=== PATIENT | male | born 1940 | race Caucasian/White ===

== ENCOUNTER 2016-04-11 19:06 | Emergency (ER) | payer MEDICARE, OTHER | END 2016-04-11 19:28 | disposition left against medical advice (07) | LOC: E/R 19:06 | DX: Z53.21 Procedure and treatment not carried out due to patient leaving prior to being seen by health care provider (principal) ==

== ENCOUNTER 2016-04-12 18:00 | Inpatient (IN) | payer MEDICARE, OTHER ==
[~2016-04-12] VITALS: Ht 162.6 cm; Wt 60.1 kg
[2016-04-12] MEDS ORDERED: METHYLPREDNISOLONE 125 MG INJ IV STA (20:19)
[2016-04-12] MEDS ORDERED: ALBUTEROL 0.5% (NEB) 2.5 MG/0.5 ML AMP INH STA (20:19)
[2016-04-12] MEDS ORDERED: SOD CHLORIDE 0.9% 500 ML IV STA (20:19)
[2016-04-12] MEDS ORDERED: IPRATROPIUM (NEB) 0.5 MG/2.5 ML AMP INH STA (20:19)
[2016-04-12 20:59] LABS: BASOPHIL # 0.1 10^3/ul (0.0-0.1); BASOPHILS % 0.6 % (0.0-2.0); EOSINOPHILS # 0.2 10^3/ul (0.0-0.5); EOSINOPHILS % 2.8 % (0.0-7.0); HEMOGLOBIN 12.3 g/dl (14.0-18.0); LYMPHOCYTES # 1.8 10^3/ul (0.8-2.9); LYMPHOCYTES % 21.2 % (15.0-51.0); MEAN CORPUSCULAR HEMOGLOBIN 28.5 pg (29.0-33.0); MEAN CORPUSCULAR HGB CONC 33.2 g/dl (32.0-37.0); MEAN CORPUSCULAR VOLUME 85.8 fl (82.0-101.0); MEAN PLATELET VOLUME 7.6 fl (7.4-10.4); MONOCYTE # 0.9 10^3/ul (0.3-0.9); MONOCYTES % 10.5 % (0.0-11.0); NEUTROPHIL # 5.6 10^3/ul (1.6-7.5); NEUTROPHILS % 64.9 % (39.0-77.0); PLATELET COUNT 285 10^3/UL (140-440); RED BLOOD COUNT 4.32 10^6/ul (4.70-6.10); RED CELL DISTRIBUTION WIDTH 14.9 % (11.5-14.5); UNCORRECTED WBC 8.6 10^3/ul (4.8-10.8); WHITE BLOOD COUNT 8.6 10^3/ul (4.8-10.8)
[2016-04-12 21:01] LABS: CONDITION 1; LH ANALYZER COMMENTS 1
[2016-04-12 21:08] LABS: ALBUMIN 3.8 g/dl (3.3-4.9); CHLORIDE 101 mmol/L (97-110); SODIUM 142 mmol/L (135-144)
[2016-04-12 21:10] LABS: ANION GAP 15 (8-16); CARBON DIOXIDE 30 mmol/L (21-31); CREATININE 0.85 mg/dl (0.61-1.24)
[2016-04-12 21:11] LABS: ALANINE AMINOTRANSFERASE 25 IU/L (13-69); ALBUMIN/GLOBULIN RATIO 1.22; ALKALINE PHOSPHATASE 87 IU/L (42-121); ASPARTATE AMINO TRANSFERASE 27 IU/L (15-46); BLOOD UREA NITROGEN 12 mg/dl (7-20); GLUCOSE 99 mg/dl (70-220); TOTAL PROTEIN 6.9 g/dl (6.1-8.1)
--- NOTE | 2016-04-12 21:18 | RADRPT ---
PROCEDURE: XR Chest. CLINICAL INDICATION: Abdominal pain. TECHNIQUE: Single frontal view of the chest was obtained COMPARISON: 07/01/2015. FINDINGS: The heart and mediastinum are within normal limits. Atherosclerotic calcifications in the thoracic aorta. Mild pulmonary vascular congestion. There is no pleural effusion or pneumothorax. IMPRESSION: 1. Atherosclerotic calcifications in the thoracic aorta. 2. Mild pulmonary vascular congestion. RPTAT: [facility] Physician Robert Date Time Electronically viewed and signed by Jay Hylton Physician on 04/12/2016 21:17 RS/
[2016-04-12 21:27] LABS: TROPONIN-I < 0.012 ng/ml (0.00-0.12)
[2016-04-12 21:46] LABS: ADD UMIC YES; URINE BILIRUBIN (Dip) NEGATIVE (NEGATIVE); URINE BLOOD (Dip) 2+ (NEGATIVE); URINE COLOR LT. YELLOW (YELLOW); URINE GLUCOSE (Dip) NEGATIVE (NEGATIVE); URINE KETONES (Dip) NEGATIVE (NEGATIVE); URINE LEUKOCYTE ESTERASE (Dip) NEGATIVE (NEGATIVE); URINE NITRITE (Dip) NEGATIVE (NEGATIVE); URINE TOTAL PROTEIN (Dip) NEGATIVE (NEGATIVE); URINE UROBILINOGEN (Dip) 0.2 E.U./dL (0.1-1.0)
[2016-04-12 22:09] LABS: BACTERIA,URINE RARE; SQUAMOUS EPITHELIAL CELL,UR FEW
--- NOTE | 2016-04-12 23:26 | ERA ---
ER Documentation Chief Complaint Date/Time DATE: 04/12/16 TIME: 23:17 Chief Complaint increased sob since monday. sent by dr terrazas for admit , mild distress. HPI 75-year-old man brought in by EMS from [facility] for continued shortness of breath and wheezing despite albuterol pump at home. also suspects urinary tract infection because he has been acting confused and recently very agitated with bizarre behavior and speech. He does have a history of schizophrenia and antipsychotic medical management has recently been difficult. He was seen and evaluated by the psychiatric team at [facility] [place] and recommendation was for outpatient management because he was not acutely suicidal or homicidal. Patient has had no calf or leg swelling, no complaints of chest pain, no vomiting or diarrhea. HPI was supplemented by reviewing past medical history, reviewing halfway records, later speaking to PMD, and family members. ROS All systems reviewed and are negative except as per history of present illness. Medications Home Meds Unable to Obtain Active Prescriptions or Reported Meds Allergies Allergies: Coded Allergies: haloperidol (Verified Allergy, Unknown, 04/12/16) PMhx/Soc Dementia, schizophrenia, COPD, hypertension, Parkinson's disease, hypothyroidism History of Surgery: No Hx Neurological Disorder: No Hx Respiratory Disorders: Yes (COPD, PNA) Hx Cardiac Disorders: Yes Hx Miscellaneous Medical Probl: Yes (COPD, Parkinson's Disease) Hx Alcohol Use: No Hx Substance Use: No Hx Tobacco Use: Yes FmHx Family History: No diabetes Physical Exam Vitals Vital Signs Date Time Temp Pulse Resp B/P Pulse Ox O2 Delivery O2 Flow Rate FiO2 04/12/16 22:59 93 22 101/69 96 Room Air 04/12/16 22:24 94 26 101/69 96 Room Air 04/12/16 20:27 92 20 96 21 04/12/16 18:04 99.2 102 24 128/88 93 Physical Exam GENERAL: Well-developed, well-nourished, well-hydrated, in no apparent distress , agitated, afebrile HEENT: Moist mucous membranes, pink conjunctiva, no cervical spine tenderness or step-off deformities, no goiter, no jaundice or icterus, extraocular movements intact without pain. No submandibular induration, and no pharyngeal erythema NEURO: Alert and oriented 3, cranial nerves II through XII intact bilaterally, pupils equal round reactive to light, no focal deficits or facial asymmetry, sensation intact distally Strength 5/5 in upper and lower extremities bilaterally CARDIAC: Regular rate and rhythm, no murmurs rubs or gallops LUNGS: Diffuse wheezes bilaterally, no crackles or stridor ABDOMEN: Soft nontender, no guarding, no rigidity, no rebound, no psoas sign no obturator sign. Normoactive bowel sounds SKIN: Warm and dry to touch, no abrasions, contusions, or hematomas, no lacerations, no ecchymosis, no target lesions, and without ulcers EXTREMITIES: No clubbing cyanosis or edema, calves are bilaterally symmetrical, no Homans sign, no popliteal cord sign. Distal pulses equal and bilateral PSYCH: Agitated with bizarre behavior Result Diagram: 04/12/16204404/12/162044 Results 24 hrs Laboratory Tests Test 04/12/16 20:45 04/12/16 21:30 Alanine Aminotransferase (ALT/SGPT) 25IU/L Albumin 3.8g/dl Albumin/Globulin Ratio 1.22 Alkaline Phosphatase 87IU/L Anion Gap 15 Aspartate Amino Transf (AST/SGOT) 27IU/L B-Type Natriuretic Peptide 370PG/ML Basophils # 0.110^3/ul Basophils % 0.6% Blood Morphology Comment Blood Urea Nitrogen 12mg/dl Calcium Level 9.0mg/dl Carbon Dioxide Level 30mmol/L Chloride Level 101mmol/L Creatinine 0.85mg/dl Direct Bilirubin 0.00mg/dl Eosinophils # 0.210^3/ul Eosinophils % 2.8% Globulin 3.10g/dl Glucose Level 99mg/dl Hematocrit 37.0% Hemoglobin 12.3g/dl Indirect Bilirubin 0.0mg/dl Lipase 154U/L Lymphocytes # 1.810^3/ul Lymphocytes % 21.2% Mean Corpuscular Hemoglobin 28.5pg Mean Corpuscular Hemoglobin Concent 33.2g/dl Mean Corpuscular Volume 85.8fl Mean Platelet Volume 7.6fl Monocytes # 0.910^3/ul Monocytes % 10.5% Neutrophils # 5.610^3/ul Neutrophils % 64.9% Nucleated Red Blood Cells # 0.010^3/ul Nucleated Red Blood Cells % 0.0/100WBC Platelet Count 02557^3/UL Potassium Level 4.0mmol/L Red Blood Count 4.3210^6/ul Red Cell Distribution Width 14.9% Sodium Level 142mmol/L Total Bilirubin 0.0mg/dl Total Protein 6.9g/dl Troponin I < 0.012ng/ml White Blood Count 8.610^3/ul Urine Bacteria RARE Urine Bilirubin NEGATIVE Urine Clarity CLEAR Urine Color LT. YELLOW Urine Glucose NEGATIVE% Urine Hemoglobin 2+ Urine Ketones NEGATIVE Urine Leukocyte Esterase NEGATIVE Urine Microscopic RBC 10-25/HPF Urine Microscopic WBC NONE SEEN/HPF Urine Nitrite NEGATIVE Urine Specific [place] <=1.005 Urine Squamous Epithelial Cells FEW Urine Total Protein NEGATIVE Urine Urobilinogen 0.2 E.U./dL Urine pH 5.5 Current Medications Medications (Trade) Dose Ordered Sig/Julio Route PRN Reason Start Time Stop Time Status Last Admin Dose Admin Sodium Chloride (NS) 500 ml @ 500 mls/hr Q1H STAT IV 04/12/16 20:19 04/12/16 21:18 DC 04/12/16 21:31 Albuterol (Proventil 0.5% (Neb)) 10 mg ONCE STAT INH 04/12/16 20:19 04/12/16 20:20 DC 04/12/16 20:27 Ipratropium [place] (Atrovent 0.02% (Neb)) 1 mg ONCE STAT INH 04/12/16 20:19 04/12/16 20:20 DC 04/12/16 20:26 Methylprednisolone Sodium Succinate (Solu-Medrol) 125 mg ONCE STAT IV 04/12/16 20:19 04/12/16 20:20 DC 04/12/16 21:31 Lorazepam (Ativan) 0.5 mg ONCE ONCE IV 04/12/16 23:30 04/12/16 23:31 [facility] IV line was established patient was placed on 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 Patient was afebrile. I administered albuterol 10 mg via nebulizer, ipratropium 1 mg via nebulizer, and methylprednisolone 125 mg IV. Patient also received 500 cc of normal saline intravenously and lorazepam 0.5 mg IV for agitation. One AP view of the chest performed, read by me reveals no acute infiltrates, normal mediastinum, sharp costophrenic and cardiac borders, no air under the diaphragm. Otherwise unremarkable chest x-ray. EKG performed, read by me: 88 bpm, normal sinus rhythm, normal axis, no acute ST segment changes, narrow QRS complex, with good R-wave progression in precordial leads. CBC was unremarkable, electrolytes normal, liver function tests were normal, troponin was negative, BNP was low. Urine analysis was negative for infection. Given the patient's continued symptoms and recent psychotic behavior he will be admitted to [facility] for continued medical management, bronchodilator therapy, and inpatient psychiatry consultation. 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
[2016-04-12] MEDS ORDERED: LORAZEPAM 2 MG INJ IV ONE (23:30)
[2016-04-13] MEDS ORDERED: LORAZEPAM 2 MG INJ IV PRN (01:30)
[2016-04-13] MEDS ORDERED: ACETAMINOPHEN 325 MG TAB PO PRN (01:30)
[2016-04-13] MEDS: ALBUTEROL/IPRATROPIUM (NEB) 3 ML AMP HHN SCH ×4 (02:19→19:33)
[2016-04-13] MEDS: CEFTRIAXONE 1 GM/50 ML (PMX) 50 ML IVPB SCH (02:32)
[2016-04-13 03:00] VITALS: Ht 162.6 cm; Wt 60.1 kg
[2016-04-13] MEDS ORDERED: PANTOPRAZOLE (EC) 40 MG TAB PO SCH (06:00)
[2016-04-13 08:21] VITALS: BP 136/83; RESP 20
[2016-04-13] MEDS: METHYLPREDNISOLONE 40 MG INJ IV SCH ×2 (08:38→20:34)
--- NOTE | 2016-04-13 12:26 | HP ---
DATE OF ADMISSION: 04/12/2016 CHIEF COMPLAINT: Increased shortness of breath since Monday, respiratory distress. HISTORY OF PRESENT ILLNESS: The patient is a 75-year-old gentleman who was sent from a skilled nurs ing facility for continued shortness of breath and wheezing despite using aerosol pump at the [facility]. The patient has a history of COPD, schizophrenia, Parkinson's disease, and insomnia. The patie nt, also according to the senior living records, has increased confusion and agitation with bizarre b ehavior. The patient was given albuterol and Atrovent, IV steroids and Ativan with improvement. Th e patient also underwent a chest x-ray, with notion of mild pulmonary vascular congestion and athero sclerotic calcification in the thoracic aorta. The patient is a poor historian. According to , the patient has a temperature of 99.2 on admission. Denies any nausea, vomiting. Denies chest pa in. Denies diarrhea, constipation. The patient will be admitted for further evaluation and managem ent to medical/surgical floor. PAST MEDICAL HISTORY: Positive for Parkinson disease, COPD, schizoaffective disorder, hypothyroidis m. PAST SURGICAL HISTORY: The patient is status post thoracentesis for severe pneumonia. SOCIAL HISTORY: The [facility]. The patient is a former heavy smoker. Currently, denies any alcohol use, denies any illicit drug use. FAMILY HISTORY: Noncontributory. ALLERGIES: THE PATIENT IS ALLERGIC TO HALDOL. MEDICATIONS: On admission, the list of penitentiary facility medications is unavailable. I will contact the penitentiary facility for the current medication list. REVIEW OF SYSTEMS: A 12-point review of systems is negative unless what mentioned in the HPI. PHYSICAL ASSESSMENT: GENERAL: Well-developed, well-nourished male, currently is awake, alert. VITAL SIGNS: Temperature is 98.8, pulse is 88, blood pressure is 136/82, respiratory rate 20, oxyge n saturation is 96% on 2 liters nasal cannula. HEENT: Head is atraumatic, normocephalic. Pupils equal, round, reactive to light and accommodation . Oral mucosa is pink, moist. NECK: Supple, no cervical lymphadenopathy, no thyromegaly. CHEST: Lungs are clear bilaterally, slightly diminished at the bases. There are no wheezes or rhon chi noted. CARDIOVASCULAR: Normal S1, S2. No murmurs, gallops, clicks, rubs noted. ABDOMEN: Round, soft, nondistended, nontender. Bowel sounds present. There is no guarding, no jarret ound tenderness. EXTREMITIES: There is no edema, clubbing, cyanosis. Pulses equal bilaterally 2+. SKIN: There is no rash, petechiae noted. NEUROLOGIC: The patient is awake, alert and oriented to name and situation. Otherwise, confused, c ooperative. ASSESSMENT AND PLAN 1. Chronic obstructive pulmonary disease exacerbation. We are going to continue patient on breathi ng treatments and IV Solu-Medrol. 2. Possible pneumonia with chest x-ray with pulmonary congestion, and a low-grade fever. Start pat ient on Rocephin and monitor chest x-ray. 3. Parkinson's disease. 4. Schizophrenia. 5. Hypertension. We will continue hydralazine p.r.n. for systolic blood pressure above 170. 6. History of methicillin-resistant Staphylococcus aureus of nares, status post treatment. We will check nares swab for MRSA infection. 7. Weill continue sequential compression device for deep venous thrombosis prophylaxis and Protonix for peptic ulcer disease prophylaxis. Further recommendations based on clinical course. Plan of care discussed with Dr. Lorenzo. Dictated By: SORAIDA KING SUCTION ROLLER for EDGARD LORENZO MD SR/NTS Conf#: [id number] DID#: [id number]
[2016-04-13] MEDS: ROPINIROLE 1 MG TAB PO SCH ×2 (13:48→20:34)
[2016-04-13] MEDS: PANTOPRAZOLE (EC) 40 MG TAB PO SCH (18:11)
[2016-04-13] MEDS: MIRTAZAPINE 15 MG TAB PO SCH (20:34)
[2016-04-13 20:51] VITALS: BP 172/85; RESP 16
[2016-04-13 22:10] VITALS: BP 162/79; PULSE 89
[2016-04-14] MEDS: ALBUTEROL/IPRATROPIUM (NEB) 3 ML AMP HHN SCH ×4 (01:19→19:36)
[2016-04-14] MEDS: CEFTRIAXONE 1 GM/50 ML (PMX) 50 ML IVPB SCH (02:53)
[2016-04-14] MEDS: PANTOPRAZOLE (EC) 40 MG TAB PO SCH ×2 (05:15→18:48)
[2016-04-14] MEDS: LEVOTHYROXINE 25 MCG TAB PO SCH (05:15)
[2016-04-14 05:37] LABS: HEMATOCRIT 38.4 % (42.0-52.0); HEMOGLOBIN 12.8 g/dl (14.0-18.0); LYMPHOCYTES # 0.6 10^3/ul (0.8-2.9); LYMPHOCYTES % 3.9 % (15.0-51.0); MEAN CORPUSCULAR HEMOGLOBIN 28.7 pg (29.0-33.0); MEAN CORPUSCULAR HGB CONC 33.3 g/dl (32.0-37.0); MEAN CORPUSCULAR VOLUME 86.4 fl (82.0-101.0); MEAN PLATELET VOLUME 8.1 fl (7.4-10.4); MONOCYTE # 0.5 10^3/ul (0.3-0.9); MONOCYTES % 3.5 % (0.0-11.0); NEUTROPHIL # 13.4 10^3/ul (1.6-7.5); NEUTROPHILS % 92.6 % (39.0-77.0); PLATELET COUNT 317 10^3/UL (140-440); RED BLOOD COUNT 4.44 10^6/ul (4.70-6.10); RED CELL DISTRIBUTION WIDTH 14.8 % (11.5-14.5); UNCORRECTED WBC 14.5 10^3/ul (4.8-10.8); WHITE BLOOD COUNT 14.5 10^3/ul (4.8-10.8)
[2016-04-14 05:53] LABS: POTASSIUM 4.6 mmol/L (3.5-5.1)
[2016-04-14 05:56] LABS: CREATININE 0.8 mg/dl (0.61-1.24)
[2016-04-14 05:57] LABS: CALCIUM 9.5 mg/dl (8.4-10.2)
[2016-04-14 06:19] LABS: CONDITION 1; LH ANALYZER COMMENTS 1
[2016-04-14 08:00] VITALS: BP 196/93; RESP 18
[2016-04-14] MEDS: ROPINIROLE 1 MG TAB PO SCH ×3 (08:08→20:42)
[2016-04-14] MEDS: METHYLPREDNISOLONE 40 MG INJ IV SCH ×2 (08:08→20:42)
[2016-04-14] MEDS: FOLIC ACID 1 MG TAB PO SCH (08:08)
--- NOTE | 2016-04-14 10:47 | PSY ---
Date/Time of Note Date/Time of Note DATE: 04/14/16 TIME: 10:41 Psychiatric Subjective Eval Consent Pt consented to telemedicine: Yes Subjective Evaluation Patient location: inpatient Chief Complaint: increased sob since monday. sent by dr terrazas for admit , mild distress. History of present illness 75 yo male with hx schizophrenia, dementia, Parkinsons, admitted for COPD; pt is agitated, beligenern, making inappropriate comments, using profanities; he was observed in the room responding to IS, he says he is [place] and he is here because Satan and his angels made him to have nervous breakdown. In the course of the eval the pt escalated, stared using profanities and pushed the robot. I terminated the session at this point. Past psychiatric history per record - schizophrenia Hospitalization: yes Family History unknown Medical history Problems Medical Problems: (1) Bronchitis Status: Acute (2) COPD exacerbation Status: Acute (3) Lactic acidosis Status: Acute (4) Patient left without being seen Status: Acute (5) Psychosis Status: Acute Allergies: Coded Allergies: haloperidol (Verified Allergy, Unknown, 04/12/16) Social History Marital status: single Psychiatric Objective Eval Mental Status Examination: Appearance: Bizarre Eye Contact: Fair Psychomotor Activity: Agitated Behavior: Hostile Speech: Pressured, Disorganized AFFECT: Libile Mood: Irritable Though Process: Tangential Thought Content: Delusions, Hallucinations Orientation: x2 Cognition: Alert Insight: Impared Judgement: Impared Laboratory Results Laboratory Tests Test 04/12/16 20:45 04/12/16 21:30 04/14/16 04:25 Alanine Aminotransferase (ALT/SGPT) 25IU/L Albumin 3.8g/dl Albumin/Globulin Ratio 1.22 Alkaline Phosphatase 87IU/L Anion Gap 15 21 Aspartate Amino Transf (AST/SGOT) 27IU/L B-Type Natriuretic Peptide 370PG/ML Basophils # 0.110^3/ul 0.010^3/ul Basophils % 0.6% 0.0% Blood Morphology Comment Blood Urea Nitrogen 12mg/dl 16mg/dl Calcium Level 9.0mg/dl 9.5mg/dl Carbon Dioxide Level 30mmol/L 27mmol/L Chloride Level 101mmol/L 100mmol/L Creatinine 0.85mg/dl 0.80mg/dl Direct Bilirubin 0.00mg/dl Eosinophils # 0.210^3/ul 0.010^3/ul Eosinophils % 2.8% 0.0% Globulin 3.10g/dl Glucose Level 99mg/dl 139mg/dl Hematocrit 37.0% 38.4% Hemoglobin 12.3g/dl 12.8g/dl Indirect Bilirubin 0.0mg/dl Lipase 154U/L Lymphocytes # 1.810^3/ul 0.610^3/ul Lymphocytes % 21.2% 3.9% Mean Corpuscular Hemoglobin 28.5pg 28.7pg Mean Corpuscular Hemoglobin Concent 33.2g/dl 33.3g/dl Mean Corpuscular Volume 85.8fl 86.4fl Mean Platelet Volume 7.6fl 8.1fl Monocytes # 0.910^3/ul 0.510^3/ul Monocytes % 10.5% 3.5% Neutrophils # 5.610^3/ul 13.410^3/ul Neutrophils % 64.9% 92.6% Nucleated Red Blood Cells # 0.010^3/ul 0.010^3/ul Nucleated Red Blood Cells % 0.0/100WBC 0.0/100WBC Platelet Count 00421^3/UL 22432^3/UL Potassium Level 4.0mmol/L 4.6mmol/L Red Blood Count 4.3210^6/ul 4.4410^6/ul Red Cell Distribution Width 14.9% 14.8% Sodium Level 142mmol/L 143mmol/L Total Bilirubin 0.0mg/dl Total Protein 6.9g/dl Troponin I < 0.012ng/ml White Blood Count 8.610^3/ul 14.510^3/ul Urine Bacteria RARE Urine Bilirubin NEGATIVE Urine Clarity CLEAR Urine Color LT. YELLOW Urine Glucose NEGATIVE% Urine Hemoglobin 2+ Urine Ketones NEGATIVE Urine Leukocyte Esterase NEGATIVE Urine Microscopic RBC 10-25/HPF Urine Microscopic WBC NONE SEEN/HPF Urine Nitrite NEGATIVE Urine Specific [place] <=1.005 Urine Squamous Epithelial Cells FEW Urine Total Protein NEGATIVE Urine Urobilinogen 0.2 E.U./dL Urine pH 5.5 Assessment and Plan Assessment/Diagnosis [place] I: SCHIZOAFFECTIVE D/O, BIPOLAR TYPE; DEMENTIA, MULTIFACTORIAL [place] II: DEFERED [place] III: PER RECORD [place] IV: MODERATE [place] V: GAF 25 Recommendation/Plan Medication Management pT'S CURRENT AGITATION AND PSYCHOSIS ARE CERTAINLY EXACERBATED BY STEROIDS; CONSIDER LOWERING THE DOSE. REDUCE REMERON TO 7.5 MG POQHS; START OND EPAKTOE 25O MG PO BID; START ON ZYPREXA 5 MG PO BID, CONSIDER INCREASING GRADUALLY. Follow-up/Disposition 5150 FOR DTO, GD; TRANSFER TO IN PSYCH THEN MEDICALLY CLEARED 5150 Recommendation: Place [facility] ALEXIS FREEMAN MD Apr 14, 2016 10:47
--- NOTE | 2016-04-14 12:23 | PN ---
Date/Time of Note Date/Time of Note DATE: 04/14/16 TIME: 12:20 Assessment/Plan VTE Prophylaxis VTE Prophylaxis Intervention: SCD's Lines/Catheters IV C[facility]ter Type (from [facility]): Saline Lock Urinary Cath still in place: No Assessment/Plan Assessment/Plan 1. Chronic obstructive pulmonary disease exacerbation. We are going to continue patient on breathing treatments and IV Solu-Medrol. 2. Possible pneumonia with chest x-ray with pulmonary congestion, and a low- grade fever. Start patient on Rocephin and monitor chest x-ray. 3. Parkinson's disease. 4. Schizophrenia. 5. Hypertension. We will continue hydralazine p.r.n. for systolic blood pressure above 170. 6. History of methicillin-resistant Staphylococcus aureus of nares, status post treatment. We will check nares swab for MRSA infection. Sequential compression device for deep venous thrombosis prophylaxis and Protonix for peptic ulcer disease prophylaxis. Further recommendations based on clinical course. Plan of care discussed with Dr. Lorenzo. Subjective 24 Hr Interval Summary Free Text/Dictation nad, denies any complaint. dw staff Exam/Review of Systems Vital Signs Vitals Vital Signs Date Time Temp Pulse Resp B/P Pulse Ox O2 Delivery O2 Flow Rate FiO2 04/14/16 08:00 98.8 107 18 196/93 98 04/14/16 01:21 Nasal Cannula 2.0 04/12/16 20:27 21 Intake and Output 04/13/16 04/13/16 04/14/16 15:00 23:00 07:00 Intake Total 1200 ml 760 ml Balance 1200 ml 760 ml Exam Constitutional: alert, well developed Psych: no complaints Head: atraumatic Eyes: EOMI, nl sclera ENMT: nl external ears & nose Neck: non-tender Respiratory: clear to auscultation Cardiovascular: nl pulses Gastrointestinal: non-tender, soft Musculoskeletal: nl extremities to inspection Neurological: confused, nl speech Skin: nl turgor Lymph: nontender Results Result Diagram: 04/14/165 04/14/165 Results 24 hrs Laboratory Tests Test 04/14/16 04:25 Anion Gap 21 H Basophils # 0.0 Basophils % 0.0 Blood Morphology Comment Blood Urea Nitrogen 16 Calcium Level 9.5 Carbon Dioxide Level 27 Chloride Level 100 Creatinine 0.80 Eosinophils # 0.0 Eosinophils % 0.0 Glucose Level 139 # Hematocrit 38.4 L Hemoglobin 12.8 L Lymphocytes # 0.6 L Lymphocytes % 3.9 L Mean Corpuscular Hemoglobin 28.7 L Mean Corpuscular Hemoglobin Concent 33.3 Mean Corpuscular Volume 86.4 Mean Platelet Volume 8.1 Monocytes # 0.5 Monocytes % 3.5 Neutrophils # 13.4 H Neutrophils % 92.6 H Nucleated Red Blood Cells # 0.0 Nucleated Red Blood Cells % 0.0 Platelet Count 317 Potassium Level 4.6 Red Blood Count 4.44 L Red Cell Distribution Width 14.8 H Sodium Level 143 White Blood Count 14.5 #H Medications Medications Current Medications Ceftriaxone Sodium (Rocephin) 50 ml @ 100 mls/hr Q24H IVPB Last administered on 04/14/16 02:53; Admin Dose 100 MLS/HR; Start 04/13/16 at 02:00 Methylprednisolone Sodium Succinate (Solu-Medrol) 40 mg BID IV Last administered on 04/14/16 08:08; Admin Dose 40 MG; Start 04/13/16 at 09:00 Acetaminophen (Tylenol Tab) 650 mg Q4H PRN PO PAIN AND OR ELEVATED TEMP; Start 04/13/16 at 01:30 Lorazepam (Ativan) 1 mg Q6H PRN IV AGITATION; Start 04/13/16 at 01:30 Hydralazine HCl (Apresoline) 10 mg Q6H PRN IV SBP>170; Start 04/13/16 at 11:30 Pantoprazole (Protonix Tab) 40 mg BID@06,18 PO Last administered on 04/14/16 05 :15; Admin Dose 40 MG; Start 04/13/16 at 18:00 Ropinirole HCl (Requip) 1 mg TID PO Last administered on 04/14/16 08:08; Admin Dose 1 MG; Start 04/13/16 at 13:00 Folic Acid (Folic Acid) 1 mg DAILY PO Last administered on 04/14/16 08:08; Admin Dose 1 MG; Start 04/14/16 at 09:00 Levothyroxine Sodium (Synthroid) 25 mcg DAILY@06 PO Last administered on 05:15; Admin Dose 25 MCG; Start 04/14/16 at 06:00 Mirtazapine (Remeron) 15 mg HS PO Last administered on 2/8/17at 20:34; Admin Dose 15 MG; Start 04/13/16 at 21:00 ALEJANDRINA KHAN Apr 14, 2016 12:23
[2016-04-14] MEDS: hydrALAzine 20 MG INJ IV PRN (14:46)
[2016-04-14 20:30] VITALS: BP 148/67; RESP 18
[2016-04-14] MEDS: MIRTAZAPINE 15 MG TAB PO SCH (20:41)
[2016-04-15] MEDS: CEFTRIAXONE 1 GM/50 ML (PMX) 50 ML IVPB SCH (01:48)
[2016-04-15] MEDS: ALBUTEROL/IPRATROPIUM (NEB) 3 ML AMP HHN SCH ×3 (02:12→14:28)
[2016-04-15] MEDS: LEVOTHYROXINE 25 MCG TAB PO SCH (05:34)
[2016-04-15] MEDS: PANTOPRAZOLE (EC) 40 MG TAB PO SCH ×2 (05:34→17:28)
[2016-04-15 05:56] LABS: ADD SCAN DIFF NO
[2016-04-15 06:00] LABS: ABNORMAL IP MESSAGE 1; BASOPHILS % 0.2 % (0.0-2.0); HEMATOCRIT 40.5 % (42.0-52.0); HEMOGLOBIN 12.4 g/dl (14.0-18.0); LYMPHOCYTES # 0.5 10^3/ul (0.8-2.9); LYMPHOCYTES % 4.2 % (15.0-51.0); MEAN CORPUSCULAR HEMOGLOBIN 27.5 pg (29.0-33.0); MEAN CORPUSCULAR HGB CONC 30.6 g/dl (32.0-37.0); MEAN CORPUSCULAR VOLUME 89.8 fl (82.0-101.0); MEAN PLATELET VOLUME 9.6 fl (7.4-10.4); MONOCYTE # 0.8 10^3/ul (0.3-0.9); MONOCYTES % 6.6 % (0.0-11.0); NEUTROPHIL # 10.3 10^3/ul (1.6-7.5); NEUTROPHILS % 88.4 % (39.0-77.0); PLATELET COUNT 329 10^3/UL (140-415); RED BLOOD COUNT 4.51 10^6/ul (4.70-6.10); RED CELL DISTRIBUTION WIDTH 14.6 % (11.5-14.5); WHITE BLOOD COUNT 11.6 10^3/ul (4.8-10.8)
[2016-04-15 06:27] LABS: CREATININE 0.86 mg/dl (0.61-1.24)
[2016-04-15 06:28] LABS: CALCIUM 9.3 mg/dl (8.4-10.2)
[2016-04-15 07:40] VITALS: BP 146/67; RESP 17
[2016-04-15] MEDS: METHYLPREDNISOLONE 40 MG INJ IV SCH (08:43)
[2016-04-15] MEDS: FOLIC ACID 1 MG TAB PO SCH (08:43)
[2016-04-15] MEDS: ROPINIROLE 1 MG TAB PO SCH ×2 (08:43→13:49)
[2016-04-15] MEDS ORDERED: LEVOFLOXACIN 500 MG TAB PO SCH (11:30)
[2016-04-15] MEDS: hydrALAzine 20 MG INJ IV PRN (19:20)
[2016-04-16] MEDS ORDERED: predniSOLONE 5 MG TAB PO SCH (09:00)
--- NOTE | 2016-04-16 11:37 | DS ---
DATE OF ADMISSION: 04/14/2016 DATE OF DISCHARGE: 04/15/2016 DISCHARGE DIAGNOSES: 1. Chronic obstructive pulmonary disease exacerbation. 2. Schizophrenia. 3. Possible parkinsonism. 4. Recent upper gastrointestinal bleed due to bleeding duodenal ulcer and was admitted at [facility]. DISCHARGE MEDICATIONS: The patient is being transferred to psych facility due to acute psychosis. Patient was evaluated by tele-psych, Dr. Barbie Goldsmith. REASON FOR ADMISSION: The patient is a 75-year-old gentleman with history of COPD, schizophrenia, p arkinsonism and also a history of hypothyroidism. The patient was brought into ER by his sister due to cough, chest congestion, shortness of breath and also was hallucinating and at times was agitate d, and also had inappropriate behavior. The patient was diagnosed with chronic obstructive pulmonar y disease exacerbation. Chest x-ray did not reveal any acute infiltrate. Patient was treated with IV steroids, IV antibiotic, breathing treatment and tele-psych was called. Patient has been weaned off of steroids. The patient was recommended to go to psych hospital. PHYSICAL EXAMINATION: GENERAL: On the day of discharge, the patient is breathing comfortably. VITAL SIGNS: Temperature 98.2, pulse 99, respirations 18, blood pressure 148/67, O2 saturation 96% on room air. HEENT: Conjunctivae and lids normal. Oropharynx clear. NECK: Supple. No mass, no thyromegaly. CHEST: Fairly clear. No use of accessory muscles. CARDIOVASCULAR: S1, S2 normal. No murmur, gallop, or rub. ABDOMEN: Soft, nondistended, nontender. Bowel sounds plus. EXTREMITIES: No leg edema. NEUROLOGIC: The patient is awake, alert, oriented x1. The patient will be transferred to a psych facility. CONDITION: Stable for transfer. LABORATORY DATA: Done this morning, WBC 11.6, probably due to steroids, hemoglobin 12.4, platelets 329, sodium 147, potassium 4, BUN ____, creatinine 0.8, glucose ____. Dictated By: EDGARD SALGADO/TAISHA Conf#: [id number] DID#: [id number]
== END 2016-04-15 20:12 | DRG 190 ==
LOC: E/R 18:00 → PP2 23:03 → INTOOBSV 23:03 → PP2 04-13 00:29 → OBSVTOIN 04-14 17:25
PROVIDERS: ADMIT Internal Medicine; ATTEND Internal Medicine
DX: J44.1 Chronic obstructive pulmonary disease with (acute) exacerbation (principal); J18.9 Pneumonia, unspecified organism; G20 Parkinson's disease; F20.9 Schizophrenia, unspecified; I10 Essential (primary) hypertension
CPT/HCPCS: 71010; 80048; 80053; 81001; 81003; 83690; 83880; 84484; 85025; 87086; 93005; 94640; 94644; 94664; 99217; G0378; J0360; J0696; J2060; J2920; J2930; J7040; J7510

== ENCOUNTER 2016-08-01 20:39 | Inpatient (IN) | payer MEDICARE, OTHER ==
[~2016-08-01] VITALS: Ht 162.6 cm; Wt 63.2 kg
--- NOTE | 2016-08-01 20:47 | ERA ---
ER Documentation Chief Complaint Date/Time DATE: 08/01/16 TIME: 20:47 Chief Complaint Cough HPI The patient is a 75-year-old male, presenting to the ER because of fever, cough , low O2 saturation for the last couple days. He denies chills, neck pain, chest pain, dyspnea, abdominal pain, vomiting, dysuria, diarrhea. He does not smoke nor drink nor walk. He used to to 3 L nasal cannula continuously Past medical history: COPD, schizophrenia, history of GI bleed ROS All systems reviewed and are negative except as per history of present illness. Medications Home Meds Unable to Obtain Active Prescriptions or Reported Meds Allergies Allergies: Coded Allergies: haloperidol (Verified Allergy, Unknown, 04/12/16) PMhx/Soc History of Surgery: Yes (appendectomy) Hx Neurological Disorder: No Hx Respiratory Disorders: Yes Hx Cardiac Disorders: No Hx Miscellaneous Medical Probl: No Hx Alcohol Use: No Hx Substance Use: No Hx Tobacco Use: Yes Physical Exam Vitals Vital Signs Date Time Temp Pulse Resp B/P Pulse Ox O2 Delivery O2 Flow Rate FiO2 08/01/16 21:15 98 4.0 08/01/16 21:02 116 20 98 Nasal Cannula 4.0 08/01/16 20:56 Nasal Cannula 4 08/01/16 20:53 122 33 145/72 98 Nasal Cannula 4.0 08/01/16 20:47 101.4 116 22 137/59 92 Physical Exam Const: No acute distress. Head: Atraumatic. Eyes: Normal Conjunctiva. ENT: Normal External Ears, Nose and Mouth. Neck: Full range of motion. No meningismus. Resp: Decreased breath sounds bilateral, tachypneic Cardio: Regular but tachycardic Abd: Soft, non distended, normal bowel sounds, non tender. Skin: No petechiae or rashes. Back: No midline or flank tenderness. Ext: No cyanosis, or edema. Neur: Limited due to his condition Psych: Normal Mood and Affect. Result Diagram: 08/01/16210408/01/162104 Results 24 hrs Laboratory Tests Test 08/01/16 21:05 White Blood Count 13.510^3/ul Red Blood Count 4.0810^6/ul Hemoglobin 11.4g/dl Hematocrit 37.8% Mean Corpuscular Volume 92.6fl Mean Corpuscular Hemoglobin 27.9pg Mean Corpuscular Hemoglobin Concent 30.2g/dl Red Cell Distribution Width 15.6% Platelet Count 08642^3/UL Mean Platelet Volume 10.3fl Neutrophils % 82.7% Lymphocytes % 8.1% Monocytes % 8.2% Eosinophils % 0.2% Basophils % 0.1% Nucleated Red Blood Cells % 0.0/100WBC Neutrophils # 11.110^3/ul Lymphocytes # 1.110^3/ul Monocytes # 1.110^3/ul Eosinophils # 0.010^3/ul Basophils # 0.010^3/ul Nucleated Red Blood Cells # 0.010^3/ul Prothrombin Time 15.3Sec Prothrombin Time Ratio 1.2 INR International Normalized Ratio 1.20 Activated Partial Thromboplast Time 32.7Sec Sodium Level 144mmol/L Potassium Level 4.3mmol/L Chloride Level 99mmol/L Carbon Dioxide Level 37mmol/L Anion Gap 12 Blood Urea Nitrogen 28mg/dl Creatinine 1.37mg/dl Glucose Level 166mg/dl Lactic Acid Level 2.2mmol/L Calcium Level 8.9mg/dl Total Bilirubin 0.2mg/dl Direct Bilirubin 0.00mg/dl Indirect Bilirubin 0.2mg/dl Aspartate Amino Transf (AST/SGOT) 18IU/L Alanine Aminotransferase (ALT/SGPT) 23IU/L Alkaline Phosphatase 70IU/L Troponin I < 0.012ng/ml Total Protein 7.5g/dl Albumin 3.6g/dl Globulin 3.90g/dl Albumin/Globulin Ratio 0.92 Current Medications Medications (Trade) Dose Ordered Sig/Julio Route PRN Reason Start Time Stop Time Status Last Admin Dose Admin Levalbuterol (Xopenex Neb) 1.25 mg ONCE ONCE HHN 08/01/16 21:00 08/01/16 21:01 DC 08/01/16 21:01 Ipratropium Cranks 0.5 mg 0.5 mg ONCE ONCE HHN 08/01/16 21:00 08/01/16 21:01 DC 08/01/16 21:01 Vancomycin HCl 250 ml @ 125 mls/hr ONCE IVPB 08/01/16 21:00 08/01/16 22:59 08/01/16 21:52 Cefepime HCl (Maxipime 1gm/50 ml (Pmx)) 50 ml @ 100 mls/hr ONCE ONCE IVPB 08/01/16 21:00 08/01/16 21:29 DC 08/01/16 21:23 Procedures/MDM EKG: Read by emergency physician Rate/Rhythm: Sinus tachycardia 118 beats/min QRS, ST, T-waves: No ST elevation, no T inversion, PAC, left anterior fascicular block Impression: Abnormal EKG [place] [id number] Radiology Main Line: [phone] DIAGNOSTIC IMAGING REPORT Patient: ALFREDO BOLTON : 1940 Age: 75 Sex: M MR #: [id number] DOS: 08/01/162051 Ordering MD: ADAM JEWELL MD Location: E/R Room/Bed: PROCEDURE: XR Chest. CLINICAL INDICATION: Possible Sepsis TECHNIQUE: Single frontal view of the chest was obtained. COMPARISON: 04/12/2016 FINDINGS: The cardiomediastinal silhouette is normal size. Pulmonary vasculature is within normal limits. There is diffuse patchy interstitial thickening, most prominent in the right mid and lower lung. There is mild aortic calcification. No signs of pleural fluid or pneumothorax are seen. There is an old right posterior rib deformity. IMPRESSION: Patchy interstitial thickening most prominent in the right mid and lower lung, which may reflect atypical / interstitial infiltrate. Mild aortic calcification. RPTAT: HBST .Gaston Jewell MD, MD Date Time Electronically viewed and signed by .Gaston Jewell MD, MD on 08/01/2016 22:36 .T/ CC: ADAM JEWELL MD MEDICAL MAKING DECISION: The patient is a 75-year-old male, presenting with acute severe sepsis, acute pneumonia. He was treated with normal saline 30 mL/ kg IV, cefepime IV, vancomycin IV and Tylenol 750 mg p.o. for fever with good response The differential diagnoses considered include but are not limited to asthma, COPD, pneumonia, pulmonary embolus, pleural effusion, congestive heart failure. UA is pending Admit MDM: Patient's infectious symptoms have not stabilized and the patient is at risk of rapid decompensation. The patient will be admitted for careful hydration, antibiotic therapy, and infectious source control. Severe Sepsis criteria: Infectious source: Pneumonia End organ damage indicated by: Lactate > 2.0 mmol/L Hypotension (SBP < 90 or >40 mmHG drop or MAP < 65) Sepsis Management: Time of recognition of severe sepsis/septic shock:9:30 PM Within 3 hours of recognition: Blood cultures x 2 before broad-spectrum antibiotics: Yes 30 ml/kg NS bolus completed Initial lactate 2.2 Repeat lactate pending Critical Care: Critical care time 35 minutes Emergent fluid management while maintaining close respiratory support. Provision of immediate and broad-spectrum antibiotic therapy. Simultaneous assessment for possible sources in order to direct targeted therapy. Consideration for invasive and chemical support to prevent cardiopulmonary collapse. Septic Shock Assessment: Any lactic acid > 4.0 no Persistent hypotension (SBP < 90 or 40 mmHg drop, MAP < 65) despite 30 mL/kg IV fluid bolusno Departure Diagnosis: Primary Impression: Severe sepsis Additional Impressions: Pneumonia Anemia Thrombocytopenia Condition: Stable Comments I discussed the findings with the patient. I discussed the patient with his physician Dr. Aida Lowe who was made aware of the lab, the treatment, the patient condition. The patient is admitted to telemetry at 9:30 PM ADAM JEWELL MD August 01, 2016 20:47
[2016-08-01] MEDS ORDERED: CEFEPIME 1GM/50 ML (PMX) 50 ML IVPB ONE (21:00)
[2016-08-01] MEDS ORDERED: VANCOMYCIN 1 GM (PMX) 250 ML IVPB SCH (21:00)
[2016-08-01] MEDS ORDERED: LEVALBUTEROL (NEB) 1.25 MG/0.5 ML AMP HHN ONE (21:00)
[2016-08-01] MEDS ORDERED: IPRATROPIUM (NEB) 0.5 MG/2.5 ML AMP HHN ONE (21:00)
[2016-08-01 21:23] LABS: ADD SCAN DIFF NO
[2016-08-01 21:25] LABS: BASOPHILS % 0.1 % (0.0-2.0); EOSINOPHILS % 0.2 % (0.0-7.0); HEMATOCRIT 37.8 % (42.0-52.0); HEMOGLOBIN 11.4 g/dl (14.0-18.0); LYMPHOCYTES # 1.1 10^3/ul (0.8-2.9); LYMPHOCYTES % 8.1 % (15.0-51.0); MEAN CORPUSCULAR HEMOGLOBIN 27.9 pg (29.0-33.0); MEAN CORPUSCULAR HGB CONC 30.2 g/dl (32.0-37.0); MEAN CORPUSCULAR VOLUME 92.6 fl (82.0-101.0); MEAN PLATELET VOLUME 10.3 fl (7.4-10.4); MONOCYTE # 1.1 10^3/ul (0.3-0.9); MONOCYTES % 8.2 % (0.0-11.0); NEUTROPHIL # 11.1 10^3/ul (1.6-7.5); NEUTROPHILS % 82.7 % (39.0-77.0); PLATELET COUNT 127 10^3/UL (140-415); RED BLOOD COUNT 4.08 10^6/ul (4.70-6.10); RED CELL DISTRIBUTION WIDTH 15.6 % (11.5-14.5); WHITE BLOOD COUNT 13.5 10^3/ul (4.8-10.8)
[2016-08-01 21:44] LABS: INR 1.2; PROTIME 15.3 Sec (12.2-14.2); PT RATIO 1.2
[2016-08-01 21:45] LABS: PARTIAL THROMBOPLASTIN TIME 32.7 Sec (25.0-35.0)
[2016-08-01 21:46] LABS: ALBUMIN 3.6 g/dl (3.3-4.9); CHLORIDE 99 mmol/L (97-110); POTASSIUM 4.3 mmol/L (3.5-5.1); SODIUM 144 mmol/L (135-144)
[2016-08-01 21:48] LABS: CREATININE 1.37 mg/dl (0.61-1.24)
[2016-08-01 21:49] LABS: ALANINE AMINOTRANSFERASE 23 IU/L (13-69); ALBUMIN/GLOBULIN RATIO 0.92; ALKALINE PHOSPHATASE 70 IU/L (42-121); ANION GAP 12 (8-16); ASPARTATE AMINO TRANSFERASE 18 IU/L (15-46); BILIRUBIN,INDIRECT 0.2 mg/dl (0-1.1); BILIRUBIN,TOTAL 0.2 mg/dl (0.2-1.3); BLOOD UREA NITROGEN 28 mg/dl (7-20); CARBON DIOXIDE 37 mmol/L (21-31); GLUCOSE 166 mg/dl (70-220); TOTAL PROTEIN 7.5 g/dl (6.1-8.1)
[2016-08-01 21:50] LABS: CALCIUM 8.9 mg/dl (8.4-10.2)
[2016-08-01 22:01] LABS: TROPONIN-I < 0.012 ng/ml (0.00-0.12)
--- NOTE | 2016-08-01 22:37 | RADRPT ---
PROCEDURE: XR Chest. CLINICAL INDICATION: Possible Sepsis TECHNIQUE: Single frontal view of the chest was obtained. COMPARISON: 04/12/2016 FINDINGS: The cardiomediastinal silhouette is normal size. Pulmonary vasculature is within normal limits. Th ere is diffuse patchy interstitial thickening, most prominent in the right mid and lower lung. There is mild aortic calcification. No signs of pleural fluid or pneumothorax are seen. There is an old right posterior rib deformity. IMPRESSION: Patchy interstitial thickening most prominent in the right mid and lower lung, which may reflect aty pical / interstitial infiltrate. Mild aortic calcification. RPTAT: HBST .Gaston Jewell MD, MD Date Time Electronically viewed and signed by .Gaston Jewell MD, on 08/01/2016 22:36 .T/
[2016-08-01] MEDS ORDERED: morphine 2 MG INJ IV PRN (23:00)
[2016-08-01] MEDS ORDERED: SOD CHLORIDE 0.9% IV ONE (23:00)
[2016-08-01] MEDS ORDERED: ACETAMINOPHEN 325 MG TAB PO PRN (23:00)
[2016-08-01] MEDS ORDERED: ONDANSETRON 4 MG INJ IV PRN (23:00)
[2016-08-01] MEDS ORDERED: ALBUTEROL 0.083% (NEB) 2.5 MG/3 ML AMP HHN PRN (23:00)
[2016-08-01] MEDS ORDERED: NACL 0.9% 3 ML SYG IV SCH (23:00)
[2016-08-02] VITALS (12 sets, daily range): BP systolic 108–123; BP diastolic 52–59; PULSE 87–104; RESP 16–19; Ht 162.6 cm; Wt 63.2 kg
[2016-08-02 00:14] LABS: URINE BLOOD (Dip) POC 3+ (NEGATIVE)
[2016-08-02 00:36] LABS: ADD UMIC YES; URINE BILIRUBIN (Dip) NEGATIVE (NEGATIVE); URINE BLOOD (Dip) 3+ (NEGATIVE); URINE COLOR YELLOW (YELLOW); URINE GLUCOSE (Dip) NEGATIVE (NEGATIVE); URINE KETONES (Dip) NEGATIVE (NEGATIVE); URINE LEUKOCYTE ESTERASE (Dip) NEGATIVE (NEGATIVE); URINE NITRITE (Dip) NEGATIVE (NEGATIVE); URINE TOTAL PROTEIN (Dip) 2+ (NEGATIVE); URINE UROBILINOGEN (Dip) 0.2 E.U./dL (0.1-1.0)
[2016-08-02 00:52] LABS: SQUAMOUS EPITHELIAL CELL,UR RARE
[2016-08-02 00:54] LABS: BACTERIA,URINE FEW
[2016-08-02 07:11] LABS: ADD SCAN DIFF NO
[2016-08-02 07:17] LABS: BASOPHILS % 0.1 % (0.0-2.0); EOSINOPHILS % 0.2 % (0.0-7.0); HEMATOCRIT 33.2 % (42.0-52.0); HEMOGLOBIN 9.9 g/dl (14.0-18.0); LYMPHOCYTES # 0.7 10^3/ul (0.8-2.9); LYMPHOCYTES % 5.8 % (15.0-51.0); MEAN CORPUSCULAR HEMOGLOBIN 27.4 pg (29.0-33.0); MEAN CORPUSCULAR HGB CONC 29.8 g/dl (32.0-37.0); MONOCYTE # 1.5 10^3/ul (0.3-0.9); MONOCYTES % 12.9 % (0.0-11.0); NEUTROPHIL # 9.1 10^3/ul (1.6-7.5); NEUTROPHILS % 79.4 % (39.0-77.0); PLATELET COUNT 115 10^3/UL (140-415); RED BLOOD COUNT 3.61 10^6/ul (4.70-6.10); RED CELL DISTRIBUTION WIDTH 15.7 % (11.5-14.5); WHITE BLOOD COUNT 11.4 10^3/ul (4.8-10.8)
[2016-08-02 07:37] LABS: POTASSIUM 4.3 mmol/L (3.5-5.1)
[2016-08-02 07:39] LABS: BILIRUBIN,INDIRECT 0.3 mg/dl (0-1.1); BILIRUBIN,TOTAL 0.3 mg/dl (0.2-1.3); CREATININE 0.92 mg/dl (0.61-1.24)
[2016-08-02 07:40] LABS: ALBUMIN/GLOBULIN RATIO 0.88; CALCIUM 8.2 mg/dl (8.4-10.2); TOTAL PROTEIN 6.4 g/dl (6.1-8.1)
[2016-08-02] MEDS ORDERED: FAMOTIDINE 20 MG INJ IV SCH (09:00)
[2016-08-02] MEDS: ENOXAPARIN 30 MG/0.3 ML SYG SC SCH (09:35)
[2016-08-02] MEDS: CEFEPIME 1GM/50 ML (PMX) 50 ML IVPB SCH ×2 (09:36→21:17)
[2016-08-02] MEDS ORDERED: NA P230E RC (14:42)
[2016-08-02] MEDS ORDERED: DOCU-144 PO (14:42)
[2016-08-02] MEDS ORDERED: DIVA-16 PO (14:42)
[2016-08-02] MEDS ORDERED: IPRA3AMP INHALATION ×2 (14:42)
[2016-08-02] MEDS ORDERED: FOLI-49 PO (14:42)
[2016-08-02] MEDS ORDERED: BISA10SU16 RC (14:42)
[2016-08-02] MEDS ORDERED: PANT40TA4 PO (14:43)
[2016-08-02] MEDS ORDERED: LORA1TAB PO (14:43)
[2016-08-02] MEDS ORDERED: MIRT15TA2 PO (14:43)
[2016-08-02] MEDS ORDERED: SENN8.6T78 PO (14:43)
[2016-08-02] MEDS ORDERED: LEVO25TA53 PO (14:43)
[2016-08-02] MEDS ORDERED: SENN-53 PO (14:43)
[2016-08-02] MEDS ORDERED: QUET50TA16 PO (14:43)
[2016-08-02] MEDS ORDERED: PSYL660P17 PO (14:43)
[2016-08-02] MEDS ORDERED: RES15 PO (14:43)
[2016-08-02] MEDS ORDERED: ROPI1TAB24 PO (14:43)
[2016-08-02] MEDS ORDERED: MAGN400O4 PO (14:43)
[2016-08-02] MEDS ORDERED: ACET325T33 PO (14:48)
[2016-08-02] MEDS ORDERED: ZOLPIDEM 5 MG TAB PO PRN (15:00)
[2016-08-02] MEDS ORDERED: ACETAMINOPHEN 325 MG TAB PO SCH (15:00)
[2016-08-02] MEDS ORDERED: VANCOMYCIN IV PER PHARMACY XX SCH (15:00)
[2016-08-02] MEDS ORDERED: LORAZEPAM 1 MG TAB PO PRN (15:00)
[2016-08-02] MEDS ORDERED: ALBUTEROL/IPRATROPIUM (NEB) 3 ML AMP HHN PRN (15:00)
[2016-08-02] MEDS ORDERED: MAGNESIUM HYDROXIDE 30ML CUP PO PRN (15:00)
--- NOTE | 2016-08-02 15:46 | HP ---
DATE OF ADMISSION: 08/01/2016 CHIEF COMPLAINT: Cough and shortness of breath. HISTORY OF PRESENT ILLNESS: The patient is a 75-year-old male with past medical history positive fo r COPD, schizophrenia, Parkinson's disease, insomnia, hypothyroidism and longtime tobacco use. The patient was in his usual health at [facility]. The patient developed a cough and decr eased oxygen saturation over the last couple of days. The patient is on continuous oxygen at [facility]. However, patient's respiratory status gets progressively worse. The patient wa s brought to [facility]. The patient underwent a chest x-ray which revealed patchy interstitial thickening most prominent in the right mid and lower lung which may reflect the typical interstitial infiltrate and mild aortic calcifications. Patient noted to have leukocytosis on admission with elevated lactic acid. Urinalysis was unremarkable. On admission to the hospital , the patient had fever of 101.4. The patient was diagnosed with sepsis and [facility] a cquired pneumonia and was started on IV fluids and broad spectrum antibiotics. He was given Tylenol for fever and patient was admitted for further evaluation and management. PAST MEDICAL HISTORY: Per HPI. PAST SURGICAL HISTORY: Patient had a prior thoracentesis. FAMILY HISTORY: Noncontributory. SOCIAL HISTORY: Patient is a resident of [facility]. The patient is a former heavy s moker, quit a couple of years ago. The patient denies any alcohol use, denies any illicit drug use. ALLERGIES: PATIENT IS ALLERGIC TO HALOPERIDOL. HOME MEDICATIONS: Include: 1. Colace. 2. Depakote. 3. Dulcolax. 4. DuoNeb. 5. Fleet enema p.r.n. 6. Folic acid. 7. Levothyroxine. 8. Lorazepam. 9. Metamucil. 10. Milk of magnesia. 11. Mirtazapine. 12. Protonix. 13. Requip. 14. Senna. 15. Seroquel. REVIEW OF SYSTEMS: A 12-point review of systems is negative unless mentioned in the HPI. PHYSICAL ASSESSMENT: GENERAL: Well-developed, well-nourished gentleman currently is awake, alert. VITAL SIGNS: Temperature is 99.4, pulse 103, blood pressure 111/57, respiratory rate 19, oxygen sat uration 99% on 2 liters nasal cannula. HEENT: Head is atraumatic, normocephalic. Pupils equal, round, reactive to light and accommodation . Oral mucosa is pink and moist. NECK: Supple, no cervical lymphadenopathy, no thyromegaly. LUNGS: Sounds slightly diminished at the bases. Clear in upper lobe. CARDIOVASCULAR: Normal S1, S2. The patient is slightly tachycardic. No murmurs, gallops or noted. ABDOMEN: Protuberant, soft, nondistended, nontender. Bowel sounds present. No guarding or rebound tenderness. EXTREMITIES: There is no edema, clubbing, cyanosis. Pulses equal bilaterally 2+. SKIN: There is no rash, petechiae noted. NEUROLOGIC: Patient is awake, alert and oriented x3. LABORATORY DATA: On admission, CBC: White blood cells 13.5, hemoglobin 11.4, hematocrit 37.8, plat elets 127. Chemistry: Sodium is 144, potassium 4.3, chloride 99, carbon dioxide 37, anion gap 12, BUN is 28, creatinine 1.37. Lactic acid 3.2, AST is 18, ALT is 23, alkaline phosphatase 70. Tropon in less than 0.012. Albumin 3.6. PT is 15.3, INR is 1.28, PTT 32.7. ASSESSMENT AND PLAN: 1. Severe sepsis secondary to pneumonia. Continue IV fluids and broad spectrum antibiotics. Monit or chest x-ray and will obtain urine and blood cultures if not done in the emergency room. 2. residential facility acquired pneumonia. 3. Chronic obstructive pulmonary disease with possible exacerbation. Continue breathing treatments . 4. Gastroesophageal reflux disease. We will continue Protonix. 5. Schizophrenia. 6. Possible Parkinson's disease. Dr. Aceves will be following the patient in infectious disease co nsultation. Will resume patient's home medications. Continue to monitor patient on telemetry floor . Continue Lovenox for deep venous thrombosis prophylaxis and Protonix for peptic ulcer disease pro phylaxis. Further recommendations based on clinical course. Plan of care discussed with Dr. Kaila victoria. Dictated By: SORAIDA KING GLOBAL VP [employer]ATIVE [employer]ENT MARKETING for EDGARD MIDDLETON MD SR/NTS Conf#: [id number] DID#: [id number]
--- NOTE | 2016-08-02 16:29 | CONS ---
DATE OF ADMISSION: 08/01/2016 DATE OF CONSULTATION: 08/02/2016 TYPE OF CONSULTATION: Infectious disease. REASON FOR CONSULTATION: Antibiotic management. HISTORY OF PRESENT ILLNESS: Ignacio Groves is a 75-year-old white male who presented to the emergen cy room with fever and is being seen for antibiotic management. His past problems include: 1. COPD. 2. Schizophrenia. 3. History of GI bleed. Acutely, the patient presents with fever and cough and low oxygen saturation for a number of days pr ior to admission. He denies chest pain, neck pain or chills. He uses a 3 liters nasal cannula cont inuously. PAST MEDICAL HISTORY AND PAST SURGICAL HISTORY: Status post appendectomy. SOCIAL HISTORY: He does smoke. He does not drink or abuse drugs. ALLERGIES: HALDOL. MEDICATIONS: Per chart. REVIEW OF SYSTEMS: Noncontributory. PHYSICAL EXAMINATION: GENERAL: The patient is a well-developed, well-nourished elderly male who is awake, responsive in n o acute distress. VITAL SIGNS: Stable. T-max on admission was 101.4 and currently is 99.4. As noted, it was 101.4 o n the 29th. SKIN: Without generalized rash. HEENT: Within normal limits. NECK: Supple. LYMPH NODES: None palpable. CHEST: Decreased breath sounds at the bases. HEART: Without murmur or gallop. He is tachycardic. ABDOMEN: Soft, nontender, without organosplenomegaly or masses. EXTREMITIES: Without cyanosis, clubbing, or edema. RECTAL AND GENITAL: Deferred. NEUROLOGIC: No focal neurological abnormalities. ANCILLARY LABORATORY DATA: White count was 13.5, H and H of 13.4 and 37.8, platelet count 127,000. BUN and creatinine 28/1.37. His CO2 is 37. Chest x-ray shows patchy interstitial thickening most prominent in the right middle and right lower lung zones which may reflect atypical interstitial inf iltrates and mild aortic calcifications. His white count today is 11.4. Urine is negative for leuk ocyte esterase and 0 to 2 white cells per high powered field. IMPRESSION AND PLAN: The patient is admitted now with fever and leukocytosis, etiology of which is unclear. The patient was started on vancomycin and cefepime. Chest x-ray is as noted. The patient with probable pneumonia with patchy interstitial thickening and history of COPD in the past. He ordoñez s severe sepsis and will await culture reports. Blood cultures were done. Urine cultures were done . I think we should try to get some sputum. I will dictate my findings to Dr. Lorenzo. Dictated By: ZA WALLACE MD, JD/TAISHA Conf#: [id number] DID#: [id number]
[2016-08-02] MEDS: VANCOMYCIN 500MG/NS (PMX) 100 ML IVPB SCH (16:57)
[2016-08-02] MEDS: ALBUTEROL/IPRATROPIUM (NEB) 3 ML AMP HHN SCH (19:24)
[2016-08-02] MEDS: SENNA TAB PO SCH (21:00)
[2016-08-02] MEDS: PSYLLIUM (SUGAR FREE) PACKET PO SCH (21:00)
[2016-08-02] MEDS: MIRTAZAPINE 15 MG TAB PO SCH (21:14)
[2016-08-02] MEDS: DIVALPROEX (EC) 500 MG TAB PO SCH (21:14)
[2016-08-02] MEDS: ROPINIROLE 1 MG TAB PO SCH (21:14)
[2016-08-02] MEDS: QUETIAPINE 25 MG TAB PO SCH (21:14)
[2016-08-03] VITALS (12 sets, daily range): BP systolic 109–152; BP diastolic 49–82; PULSE 90–105; RESP 16–18
[2016-08-03] MEDS: ALBUTEROL/IPRATROPIUM (NEB) 3 ML AMP HHN SCH ×4 (01:21→21:06)
[2016-08-03] MEDS: VANCOMYCIN 500MG/NS (PMX) 100 ML IVPB SCH ×2 (04:51→16:05)
[2016-08-03] MEDS: PANTOPRAZOLE (EC) 40 MG TAB PO SCH (05:59)
[2016-08-03] MEDS ORDERED: PANTOPRAZOLE (EC) 40 MG TAB PO SCH (07:30)
[2016-08-03] MEDS: CEFEPIME 1GM/50 ML (PMX) 50 ML IVPB SCH ×2 (08:54→21:07)
[2016-08-03] MEDS: FOLIC ACID 1 MG TAB PO SCH (08:55)
[2016-08-03] MEDS: QUETIAPINE 25 MG TAB PO SCH ×3 (08:55→21:24)
[2016-08-03] MEDS: DOCUSATE SODIUM 100 MG CAP PO SCH (08:55)
[2016-08-03] MEDS: LEVOTHYROXINE 25 MCG TAB PO SCH (08:55)
[2016-08-03] MEDS: DIVALPROEX (EC) 500 MG TAB PO SCH ×3 (08:55→21:23)
[2016-08-03] MEDS: ROPINIROLE 1 MG TAB PO SCH ×2 (08:55→21:23)
[2016-08-03] MEDS: PSYLLIUM (SUGAR FREE) PACKET PO SCH ×2 (08:56→21:00)
[2016-08-03] MEDS: ENOXAPARIN 30 MG/0.3 ML SYG SC SCH (09:50)
[2016-08-03 10:07] LABS: ADD SCAN DIFF NO
[2016-08-03 10:09] LABS: BASOPHILS % 0.2 % (0.0-2.0); EOSINOPHILS # 0.2 10^3/ul (0.0-0.5); EOSINOPHILS % 2.4 % (0.0-7.0); HEMATOCRIT 31.9 % (42.0-52.0); HEMOGLOBIN 9.6 g/dl (14.0-18.0); LYMPHOCYTES % 10.5 % (15.0-51.0); MEAN CORPUSCULAR HEMOGLOBIN 27.8 pg (29.0-33.0); MEAN CORPUSCULAR HGB CONC 30.1 g/dl (32.0-37.0); MEAN CORPUSCULAR VOLUME 92.5 fl (82.0-101.0); MEAN PLATELET VOLUME 10.3 fl (7.4-10.4); MONOCYTE # 1.4 10^3/ul (0.3-0.9); MONOCYTES % 14.5 % (0.0-11.0); NEUTROPHIL # 6.8 10^3/ul (1.6-7.5); PLATELET COUNT 129 10^3/UL (140-415); RED BLOOD COUNT 3.45 10^6/ul (4.70-6.10); RED CELL DISTRIBUTION WIDTH 15.6 % (11.5-14.5); WHITE BLOOD COUNT 9.5 10^3/ul (4.8-10.8)
[2016-08-03 10:25] LABS: POTASSIUM 3.6 mmol/L (3.5-5.1)
[2016-08-03 10:27] LABS: CREATININE 0.86 mg/dl (0.61-1.24)
[2016-08-03 10:28] LABS: CALCIUM 8.3 mg/dl (8.4-10.2)
--- NOTE | 2016-08-03 14:12 | PN ---
Date/Time of Note Date/Time of Note DATE: 08/03/16 TIME: 14:07 Assessment/Plan VTE Prophylaxis VTE Prophylaxis Intervention: SCD's Lines/Catheters IV C[facility]ter Type [facility] Saline Lock Urinary Cath still in place: No Assessment/Plan Chief Complaint/Hosp Course Patient is currently on supplemental oxygen oxygen, tachycardic, stable blood pressure, remains afebrile. ASSESSMENT AND PLAN: - Severe sepsis secondary to pneumonia. Dr. Aceves is following in infection disease consultation. Continue antibiotics per ID. - [facility] facility acquired pneumonia. - Chronic obstructive pulmonary disease with possible exacerbation. Continue breathing treatments. - Hypothyroidism, continue Synthroid. - Gastroesophageal reflux disease. Continue Protonix. - Schizophrenia. Continue Seroquel. - Possible Parkinson's disease. Continue Requip. Further recommendations based on clinical course. Plan of care discussed with Dr. Lorenzo. Problems: Exam/Review of Systems Vital Signs Vitals Vital Signs Date Time Temp Pulse Resp B/P Pulse Ox O2 Delivery O2 Flow Rate FiO2 08/03/16 12:43 105 08/03/16 11:32 98.1 18 139/64 97 08/03/16 09:10 Nasal Cannula 2.0 08/03/16 08:59 32 Intake and Output 08/02/16 08/02/16 08/03/16 15:00 23:00 07:00 Intake Total 50 ml 650 ml 580 ml Output Total 325 ml Balance 50 ml 650 ml 255 ml Exam Constitutional: alert Head: normocephalic Neck: supple Respiratory: diminished breath sounds Cardiovascular: other (Tachycardic), regular rate and rhythm Gastrointestinal: non-tender, soft Extremities: normal pulses Results Result Diagram: 08/03/1634 08/03/16 0934 Results 24 hrs Laboratory Tests Test 08/03/16 09:34 White Blood Count 9.5 Red Blood Count 3.45 L Hemoglobin 9.6 L Hematocrit 31.9 L Mean Corpuscular Volume 92.5 Mean Corpuscular Hemoglobin 27.8 L Mean Corpuscular Hemoglobin Concent 30.1 L Red Cell Distribution Width 15.6 H Platelet Count 129 L Mean Platelet Volume 10.3 Neutrophils % 72.0 Lymphocytes % 10.5 L Monocytes % 14.5 H Eosinophils % 2.4 Basophils % 0.2 Nucleated Red Blood Cells % 0.0 Neutrophils # 6.8 Lymphocytes # 1.0 Monocytes # 1.4 H Eosinophils # 0.2 Basophils # 0.0 Nucleated Red Blood Cells # 0.0 Sodium Level 146 H Potassium Level 3.6 Chloride Level 108 Carbon Dioxide Level 38 H Anion Gap 4 L Blood Urea Nitrogen 17 Creatinine 0.86 Glucose Level 113 Calcium Level 8.3 L Medications Medications Current Medications Ondansetron HCl (Zofran Inj) 4 mg Q6H PRN IV NAUSEA AND/OR VOMITING; Start at 23:00 Morphine Sulfate (morphine) 2 mg Q4H PRN IV PAIN LEVEL 7-10; Start 08/01/16 at 23:00 Enoxaparin Sodium 30 mg 30 mg DAILY SC Last administered on 08/03/16 09:50; Admin Dose 30 MG; Start 08/02/16 at 09:00 Cefepime HCl (Maxipime 1gm/50 ml (Pmx)) 50 ml @ 100 mls/hr Q12 IVPB Last administered on 08/03/16 08:54; Admin Dose 100 MLS/HR; Start 08/02/16 at 09:00 Pantoprazole (Protonix Tab) 40 mg DAILY@06 PO Last administered on 08/03/16 05 :59; Admin Dose 40 MG; Start 08/03/16 at 06:00 Divalproex Sodium (Depakote) 500 mg TID PO Last administered on 08/03/16 12:47 ; Admin Dose 500 MG; Start 08/02/16 at 21:00 Docusate Sodium (Colace) 100 mg DAILY PO ; Start 08/03/16 at 09:00 Folic Acid (Folic Acid) 1 mg DAILY PO Last administered on 08/03/16 08:55; Admin Dose 1 MG; Start 08/03/16 at 09:00 Lorazepam (Ativan) 1 mg Q12H PRN PO ANXIETY; Start 08/02/16 at 15:00 Magnesium Hydroxide (Milk Of Mag) 30 ml DAILY PRN PO CONSTIPATION; Start at 15:00 Quetiapine Fumarate (Seroquel) 50 mg TID PO Last administered on 08/03/16 12: 47; Admin Dose 50 MG; Start 08/02/16 at 21:00 Ropinirole HCl (Requip) 1 mg BID PO Last administered on 08/03/16 08:55; Admin Dose 1 MG; Start 08/02/16 at 21:00 Senna (Senokot) 1 tab QHS PO ; Start 08/02/16 at 21:00 Mirtazapine (Remeron) 15 mg QHS PO Last administered on 08/02/16 21:14; Admin Dose 15 MG; Start 08/02/16 at 21:00 Psyllium Hydrophilic Mucilloid (Metamucil (Sugar Free)) 1 pkt BID PO ; Start at 21:00 Zolpidem Tartrate 5 mg 5 mg QHS PRN PO INSOMNIA; Start 08/02/16 at 15:00 Vancomycin HCl (Vancocin) 100 ml @ 100 mls/hr Q12H IVPB Last administered on 04:51; Admin Dose 100 MLS/HR; Start 08/02/16 at 16:00 Acetaminophen (Tylenol Tab) 650 mg Q6H PRN PO PAIN AND OR ELEVATED TEMP; Start 08/02/16 at 21:00 Miscellaneous Information (*Rx Drug Level Order Reminder*) VANCOMYCIN TROUGH 08/04 AT 0300 ONCE ONCE XX ; Start 08/04/16 at 03:00; Stop 08/04/16 at 03:01 SORAIDA KING August 03, 2016 14:12
--- NOTE | 2016-08-03 14:32 | PN ---
DATE: 08/03/2016 INFECTIOUS DISEASE PROGRESS NOTE SUBJECTIVE: No events overnight. The patient is awake, looks comfortable, denies pain, no fevers. LABORATORY DATA: WBC today 9.5, H and H 9.6 and 31.9, platelets 129, no shift, no bands. BUN 17, c reatinine 0.86. MICROBIOLOGY: Nares swab came back positive for MRSA. ANTIMICROBIALS: The patient is on: 1. Vancomycin. 2. Cefepime. PHYSICAL EXAMINATION: GENERAL: This is a fragile, chronically ill-appearing, elderly man who is awake, in no distress. HEENT: Head atraumatic, normocephalic. Sclerae anicteric. Buccal mucosa dry. NECK: Supple. CHEST: Rise symmetrical. Breath sounds with bilateral expiratory wheezes. HEART: S1, S2. ABDOMEN: Soft, bowel sounds present. EXTREMITIES: Without cyanosis or edema. ASSESSMENT: 1. Sepsis with fevers, leukocytosis, and tachycardia on admission. 2. Healthcare-associated pneumonia. 3. Chronic obstructive pulmonary disease exacerbation. 4. History of schizophrenia and GI bleeding. 5. Methicillin-resistant Staphylococcus aureus nares colonization. PLAN: The patient remains stable. We will add Bactroban to nares. Continue him on current antimic robials. Continue bronchodilators. May need steroids. Dictated By: ARCHIE BORJA FIELD TECHNICIAN for ZA SORIA/TAISHA Conf#: [id number] DID#: [id number]
[2016-08-03] MEDS: SENNA TAB PO SCH (21:00)
[2016-08-03] MEDS: MUPIROCIN 2% 22 GM OINT TOP SCH (21:23)
[2016-08-03] MEDS: MIRTAZAPINE 15 MG TAB PO SCH (21:24)
[2016-08-04] VITALS (13 sets, daily range): BP systolic 103–130; BP diastolic 54–70; PULSE 87–106; RESP 16–18
[2016-08-04] MEDS: ALBUTEROL/IPRATROPIUM (NEB) 3 ML AMP HHN SCH ×4 (02:00→20:39)
[2016-08-04 03:32] LABS: ADD SCAN DIFF NO
[2016-08-04 03:33] LABS: ABNORMAL IP MESSAGE 1; BASOPHILS % 0.2 % (0.0-2.0); EOSINOPHILS # 0.2 10^3/ul (0.0-0.5); EOSINOPHILS % 2.7 % (0.0-7.0); HEMATOCRIT 28.4 % (42.0-52.0); HEMOGLOBIN 8.7 g/dl (14.0-18.0); LYMPHOCYTES # 1.3 10^3/ul (0.8-2.9); LYMPHOCYTES % 15.3 % (15.0-51.0); MEAN CORPUSCULAR HGB CONC 30.6 g/dl (32.0-37.0); MEAN CORPUSCULAR VOLUME 91.3 fl (82.0-101.0); MEAN PLATELET VOLUME 9.8 fl (7.4-10.4); MONOCYTE # 1.6 10^3/ul (0.3-0.9); MONOCYTES % 18.3 % (0.0-11.0); NEUTROPHIL # 5.3 10^3/ul (1.6-7.5); NEUTROPHILS % 62.4 % (39.0-77.0); PLATELET COUNT 148 10^3/UL (140-415); RED BLOOD COUNT 3.11 10^6/ul (4.70-6.10); RED CELL DISTRIBUTION WIDTH 15.5 % (11.5-14.5); WHITE BLOOD COUNT 8.5 10^3/ul (4.8-10.8)
[2016-08-04 03:55] LABS: CALCIUM 8.3 mg/dl (8.4-10.2); CREATININE 0.82 mg/dl (0.61-1.24); POTASSIUM 3.7 mmol/L (3.5-5.1)
[2016-08-04] MEDS: VANCOMYCIN 1 GM in NS 250 ML IVPB SCH ×2 (04:21→16:43)
[2016-08-04] MEDS: LEVOTHYROXINE 25 MCG TAB PO SCH (06:07)
[2016-08-04] MEDS: PANTOPRAZOLE (EC) 40 MG TAB PO SCH (06:07)
[2016-08-04] MEDS: DOCUSATE SODIUM 100 MG CAP PO SCH (09:00)
[2016-08-04] MEDS: PSYLLIUM (SUGAR FREE) PACKET PO SCH ×2 (09:00→20:47)
[2016-08-04] MEDS: QUETIAPINE 25 MG TAB PO SCH ×3 (09:29→20:47)
[2016-08-04] MEDS: CEFEPIME 1GM/50 ML (PMX) 50 ML IVPB SCH ×2 (09:29→20:46)
[2016-08-04] MEDS: DIVALPROEX (EC) 500 MG TAB PO SCH ×3 (09:29→20:48)
[2016-08-04] MEDS: FOLIC ACID 1 MG TAB PO SCH (09:30)
[2016-08-04] MEDS: ROPINIROLE 1 MG TAB PO SCH ×2 (09:31→20:47)
[2016-08-04] MEDS: MUPIROCIN 2% 22 GM OINT TOP SCH ×2 (09:32→20:48)
[2016-08-04] MEDS: ENOXAPARIN 30 MG/0.3 ML SYG SC SCH (09:38)
[2016-08-04 13:23] LABS: AADO2 Arterial 65.8 mmHg (7.0-24.0); Allen Test ACCEPTAB; Arterial Base Excess 10.7 mmol/L (-3.0-3); Arterial COHb 0.1 % (0.0-3.0); Arterial Fraction of Oxyhgb 90.5 % (93.0-99.0); Arterial HCO3 36.8 mmol/L (22.0-26.0); Arterial MetHb 0.4 % (0.0-1.5); Arterial Total Hemglobin 11.5 g/dl (12.0-18.0); MODE NASAL CANNULA
--- NOTE | 2016-08-04 14:21 | RADRPT ---
PROCEDURE: XR Chest 1 View. CLINICAL INDICATION: Shortness of breath. TECHNIQUE: AP view of the chest was obtained. COMPARISON: August 01, 2016 FINDINGS: The heart size is within normal limits. Calcified atherosclerosis is noted in the aorta. Diffuse in terstitial prominence is seen in both lungs. Superimposed patchy alveolar infiltrates are identifie d throughout the right lung. Small right pleural effusion is seen. Atelectasis is noted at the left lung base. Old, healed right-sided rib fractures are stable. The osseous structures are osteopenic, but appear grossly intact. IMPRESSION: Calcified atherosclerosis in the aorta. Mild interval increase in patchy infiltrates throughout the right lung and small right pleural effus ion. Chronic interstitial prominence in both lungs. Atelectasis at the left lung base. RPTAT: AA .Ezio Duggan MD, Date Time Electronically viewed and signed by .Ezio Duggan MD, on 08/04/2016 14:20 .P/
--- NOTE | 2016-08-04 14:33 | CONS ---
Date/Time of Note Date/Time of Note DATE: 08/04/16 TIME: 14:31 Assessment/Plan Assessment/Plan Chief Complaint/Hosp Course SUBJECTIVE: No events overnight. Looks comfortable, no fevers. MICROBIOLOGY: Nares swab came back positive for MRSA. ANTIMICROBIALS: The patient is on: 1. Vancomycin. 2. Cefepime. PHYSICAL EXAMINATION: GENERAL: This is a fragile, chronically ill-appearing, elderly man who is awake , in no distress. HEENT: Head atraumatic, normocephalic. Sclerae anicteric. Buccal mucosa dry. NECK: Supple. CHEST: Rise symmetrical. Breath sounds diminished to bases. HEART: S1, S2. ABDOMEN: Soft, bowel sounds present. EXTREMITIES: Without cyanosis or edema. ASSESSMENT: 1. Sepsis with fevers, leukocytosis, and tachycardia on admission. 2. Healthcare-associated pneumonia. 3. Chronic obstructive pulmonary disease exacerbation. 4. History of schizophrenia and GI bleeding. 5. Methicillin-resistant Staphylococcus aureus nares colonization. PLAN: The patient remains stable. Continue antibiotics, Bactroban to nares. DW staff Problems: Consultation Date/Type/Reason Admit Date/Time August 01, 2016 at 22:43 Initial Consult Date Type of Consultation: ID Exam/Review of Systems Vital Signs Vitals Vital Signs Date Time Temp Pulse Resp B/P Pulse Ox O2 Delivery O2 Flow Rate FiO2 08/04/16 13:34 96 20 97 Nasal Cannula 3.0 08/04/16 11:34 97.7 122/54 08/03/16 17:04 32 Intake and Output 08/03/16 08/03/16 08/04/16 15:00 23:00 07:00 Intake Total 50 ml 1170 ml 1750 ml Output Total 800 ml 1700 ml Balance 50 ml 370 ml 50 ml Results Result Diagram: 08/04/16 0326 08/04/16 0326 Results 24 hrs Laboratory Tests Test 08/04/16 03:26 08/04/16 12:48 White Blood Count 8.5 Red Blood Count 3.11 L Hemoglobin 8.7 L Hematocrit 28.4 L Mean Corpuscular Volume 91.3 Mean Corpuscular Hemoglobin 28.0 L Mean Corpuscular Hemoglobin Concent 30.6 L Red Cell Distribution Width 15.5 H Platelet Count 148 Mean Platelet Volume 9.8 Neutrophils % 62.4 Lymphocytes % 15.3 Monocytes % 18.3 H Eosinophils % 2.7 Basophils % 0.2 Nucleated Red Blood Cells % 0.0 Neutrophils # 5.3 Lymphocytes # 1.3 Monocytes # 1.6 H Eosinophils # 0.2 Basophils # 0.0 Nucleated Red Blood Cells # 0.0 Sodium Level 147 H Potassium Level 3.7 Chloride Level 107 Carbon Dioxide Level 38 H Anion Gap 6 L Blood Urea Nitrogen 13 Creatinine 0.82 Glucose Level 100 Calcium Level 8.3 L Vancomycin Level Trough 6.3 L Blood Gas Specimen Source Blood arterial Arterial Blood Date Drawn 08/04/2016 1:12:16 PM Arterial Blood pH (Temp corrected) 7.435 Arterial Blood pCO2 (Temp correct) 56.0 H Arterial Blood pO2 (Temp corrected) 60.5 L Arterial Blood HCO3 36.8 H Arterial Blood Base Excess 10.7 H Arterial Blood Oxygen Saturation 91.0 L Francisco Test ACCEPTAB Arterial Blood Gas Puncture Site Right Radial Arterial Blood Carboxyhemoglobin 0.1 Arterial Blood Methemoglobin 0.4 Blood Gas A-a O2 Differential 65.8 H Oxyhemoglobin Percent 90.5 L Total Hemoglobin 11.5 L Blood Gas Temperature 37.0 Blood Gas Modality NASAL CANNULA FiO2 27.0 Blood Gas Notified Whom JLD Blood Gas Notified Time 08/04/2016 1:23:15 PM Medications Medications Current Medications Ondansetron HCl (Zofran Inj) 4 mg Q6H PRN IV NAUSEA AND/OR VOMITING; Start at 23:00 Morphine Sulfate (morphine) 2 mg Q4H PRN IV PAIN LEVEL 7-10; Start 08/01/16 at 23:00 Enoxaparin Sodium 30 mg 30 mg DAILY SC Last administered on 08/04/16 09:38; Admin Dose 30 MG; Start 08/02/16 at 09:00 Cefepime HCl (Maxipime 1gm/50 ml (Pmx)) 50 ml @ 100 mls/hr Q12 IVPB Last administered on 08/04/16 09:29; Admin Dose 100 MLS/HR; Start 08/02/16 at 09:00 Pantoprazole (Protonix Tab) 40 mg DAILY@06 PO Last administered on 08/04/16 06: 07; Admin Dose 40 MG; Start 08/03/16 at 06:00 Divalproex Sodium (Depakote) 500 mg TID PO Last administered on 08/04/16 12:32 ; Admin Dose 500 MG; Start 08/02/16 at 21:00 Docusate Sodium (Colace) 100 mg DAILY PO ; Start 08/03/16 at 09:00 Folic Acid (Folic Acid) 1 mg DAILY PO Last administered on 08/04/16 09:30; Admin Dose 1 MG; Start 08/03/16 at 09:00 Lorazepam (Ativan) 1 mg Q12H PRN PO ANXIETY; Start 08/02/16 at 15:00 Magnesium Hydroxide (Milk Of Mag) 30 ml DAILY PRN PO CONSTIPATION; Start at 15:00 Quetiapine Fumarate (Seroquel) 50 mg TID PO Last administered on 08/04/16 12:32 ; Admin Dose 50 MG; Start 08/02/16 at 21:00 Ropinirole HCl (Requip) 1 mg BID PO Last administered on 08/04/16 09:31; Admin Dose 1 MG; Start 08/02/16 at 21:00 Senna (Senokot) 1 tab QHS PO ; Start 08/02/16 at 21:00 Mirtazapine (Remeron) 15 mg QHS PO Last administered on 08/03/16 21:24; Admin Dose 15 MG; Start 08/02/16 at 21:00 Psyllium Hydrophilic Mucilloid (Metamucil (Sugar Free)) 1 pkt BID PO ; Start at 21:00 Zolpidem Tartrate (Ambien) 5 mg QHS PRN PO INSOMNIA; Start 08/02/16 at 15:00 Acetaminophen (Tylenol Tab) 650 mg Q6H PRN PO PAIN AND OR ELEVATED TEMP; Start 08/02/16 at 21:00 Mupirocin 1 applic 1 applic BID TOP Last administered on 08/04/16 09:32; Admin Dose 1 APPLIC; Start 08/03/16 at 21:00 Vancomycin HCl (Vancocin) 250 ml @ 125 mls/hr Q12H IVPB Last administered on 04:21; Admin Dose 125 MLS/HR; Start 08/04/16 at 04:00 ARCHIE BORJA NP Aug 04, 2016 14:33
--- NOTE | 2016-08-04 18:47 | PN ---
Date/Time of Note Date/Time of Note DATE: 08/04/16 TIME: 18:44 Assessment/Plan VTE Prophylaxis VTE Prophylaxis Intervention: other Lines/Catheters [facility] Urinary Cath still in place: No Assessment/Plan Assessment/Plan - Pneumonia - pulmonary consult- Dr Briones notified - solumedrol 40 mg iv x 1 now and Q12 HR - Severe sepsis secondary to pneumonia. Dr. Aceves is following in infection disease consultation. Continue antibiotics per ID. - assisted facility acquired pneumonia. - Chronic obstructive pulmonary disease with possible exacerbation. Continue breathing treatments. - Hypothyroidism, continue Synthroid. - Gastroesophageal reflux disease. Continue Protonix. - Schizophrenia. Continue Seroquel. - Possible Parkinson's disease. Continue Requip. Further recommendations based on clinical course. Plan of care discussed with Dr. Lroenzo. Subjective 24 Hr Interval Summary Free Text/Dictation nad, afebrile, dw staff Exam/Review of Systems Vital Signs Vitals Vital Signs Date Time Temp Pulse Resp B/P Pulse Ox O2 Delivery O2 Flow Rate FiO2 08/04/16 16:38 94 08/04/16 15:33 98.1 18 117/57 90 08/04/16 13:34 Nasal Cannula 3.0 08/03/16 17:04 32 Intake and Output 08/03/16 08/03/16 08/04/16 15:00 23:00 07:00 Intake Total 50 ml 1170 ml 1750 ml Output Total 800 ml 1700 ml Balance 50 ml 370 ml 50 ml Exam Constitutional: alert Respiratory: diminished breath sounds, normal air movement Cardiovascular: nl pulses, regular rate and rhythm Gastrointestinal: non-tender, soft Extremities: normal pulses Neurological: other Lymph: nontender Results Result Diagram: 08/04/16 0326 08/04/16 0326 Results 24 hrs Laboratory Tests Test 08/04/16 03:26 08/04/16 12:48 White Blood Count 8.5 Red Blood Count 3.11 L Hemoglobin 8.7 L Hematocrit 28.4 L Mean Corpuscular Volume 91.3 Mean Corpuscular Hemoglobin 28.0 L Mean Corpuscular Hemoglobin Concent 30.6 L Red Cell Distribution Width 15.5 H Platelet Count 148 Mean Platelet Volume 9.8 Neutrophils % 62.4 Lymphocytes % 15.3 Monocytes % 18.3 H Eosinophils % 2.7 Basophils % 0.2 Nucleated Red Blood Cells % 0.0 Neutrophils # 5.3 Lymphocytes # 1.3 Monocytes # 1.6 H Eosinophils # 0.2 Basophils # 0.0 Nucleated Red Blood Cells # 0.0 Sodium Level 147 H Potassium Level 3.7 Chloride Level 107 Carbon Dioxide Level 38 H Anion Gap 6 L Blood Urea Nitrogen 13 Creatinine 0.82 Glucose Level 100 Calcium Level 8.3 L Vancomycin Level Trough 6.3 L Blood Gas Specimen Source Blood arterial Arterial Blood Date Drawn 08/04/2016 1:12:16 PM Arterial Blood pH (Temp corrected) 7.435 Arterial Blood pCO2 (Temp correct) 56.0 H Arterial Blood pO2 (Temp corrected) 60.5 L Arterial Blood HCO3 36.8 H Arterial Blood Base Excess 10.7 H Arterial Blood Oxygen Saturation 91.0 L Francisco Test ACCEPTAB Arterial Blood Gas Puncture Site Right Radial Arterial Blood Carboxyhemoglobin 0.1 Arterial Blood Methemoglobin 0.4 Blood Gas A-a O2 Differential 65.8 H Oxyhemoglobin Percent 90.5 L Total Hemoglobin 11.5 L Blood Gas Temperature 37.0 Blood Gas Modality NASAL CANNULA FiO2 27.0 Blood Gas Notified Whom JLD Blood Gas Notified Time 08/04/2016 1:23:15 PM Medications Medications Current Medications Ondansetron HCl (Zofran Inj) 4 mg Q6H PRN IV NAUSEA AND/OR VOMITING; Start at 23:00 Morphine Sulfate (morphine) 2 mg Q4H PRN IV PAIN LEVEL 7-10; Start 08/01/16 at 23:00 Enoxaparin Sodium 30 mg 30 mg DAILY SC Last administered on 08/04/16 09:38; Admin Dose 30 MG; Start 08/02/16 at 09:00 Cefepime HCl (Maxipime 1gm/50 ml (Pmx)) 50 ml @ 100 mls/hr Q12 IVPB Last administered on 08/04/16 09:29; Admin Dose 100 MLS/HR; Start 08/02/16 at 09:00 Pantoprazole (Protonix Tab) 40 mg DAILY@06 PO Last administered on 08/04/16 06: 07; Admin Dose 40 MG; Start 08/03/16 at 06:00 Divalproex Sodium (Depakote) 500 mg TID PO Last administered on 08/04/16 12:32 ; Admin Dose 500 MG; Start 08/02/16 at 21:00 Docusate Sodium (Colace) 100 mg DAILY PO ; Start 08/03/16 at 09:00 Folic Acid (Folic Acid) 1 mg DAILY PO Last administered on 08/04/16 09:30; Admin Dose 1 MG; Start 08/03/16 at 09:00 Lorazepam (Ativan) 1 mg Q12H PRN PO ANXIETY; Start 08/02/16 at 15:00 Magnesium Hydroxide (Milk Of Mag) 30 ml DAILY PRN PO CONSTIPATION; Start at 15:00 Quetiapine Fumarate (Seroquel) 50 mg TID PO Last administered on 08/04/16 12:32 ; Admin Dose 50 MG; Start 08/02/16 at 21:00 Ropinirole HCl (Requip) 1 mg BID PO Last administered on 08/04/16 09:31; Admin Dose 1 MG; Start 08/02/16 at 21:00 Senna (Senokot) 1 tab QHS PO ; Start 08/02/16 at 21:00 Mirtazapine (Remeron) 15 mg QHS PO Last administered on 08/03/16 21:24; Admin Dose 15 MG; Start 08/02/16 at 21:00 Psyllium Hydrophilic Mucilloid (Metamucil (Sugar Free)) 1 pkt BID PO ; Start at 21:00 Zolpidem Tartrate (Ambien) 5 mg QHS PRN PO INSOMNIA; Start 08/02/16 at 15:00 Acetaminophen (Tylenol Tab) 650 mg Q6H PRN PO PAIN AND OR ELEVATED TEMP; Start 08/02/16 at 21:00 Mupirocin 1 applic 1 applic BID TOP Last administered on 08/04/16 09:32; Admin Dose 1 APPLIC; Start 08/03/16 at 21:00 Vancomycin HCl (Vancocin) 250 ml @ 125 mls/hr Q12H IVPB Last administered on 16:43; Admin Dose 125 MLS/HR; Start 08/04/16 at 04:00 ALEJANDRINA KHAN Aug 04, 2016 18:47
[2016-08-04] MEDS ORDERED: METHYLPREDNISOLONE 40 MG INJ IV ONE (20:00)
[2016-08-04] MEDS: MIRTAZAPINE 15 MG TAB PO SCH (20:47)
[2016-08-04] MEDS: SENNA TAB PO SCH (20:47)
[2016-08-05] VITALS (11 sets, daily range): BP systolic 91–122; BP diastolic 52–58; PULSE 74–93; RESP 17–20
[2016-08-05] MEDS: ALBUTEROL/IPRATROPIUM (NEB) 3 ML AMP HHN SCH ×4 (02:04→19:55)
[2016-08-05] MEDS: VANCOMYCIN 1 GM in NS 250 ML IVPB SCH ×2 (03:35→16:10)
[2016-08-05] MEDS: LEVOTHYROXINE 25 MCG TAB PO SCH (06:54)
[2016-08-05] MEDS: PANTOPRAZOLE (EC) 40 MG TAB PO SCH (06:54)
[2016-08-05 08:03] LABS: ADD SCAN DIFF NO
[2016-08-05 08:17] LABS: BASOPHILS % 0.3 % (0.0-2.0); HEMATOCRIT 31.4 % (42.0-52.0); HEMOGLOBIN 9.4 g/dl (14.0-18.0); LYMPHOCYTES # 0.6 10^3/ul (0.8-2.9); LYMPHOCYTES % 10.4 % (15.0-51.0); MEAN CORPUSCULAR HEMOGLOBIN 27.4 pg (29.0-33.0); MEAN CORPUSCULAR HGB CONC 29.9 g/dl (32.0-37.0); MEAN CORPUSCULAR VOLUME 91.5 fl (82.0-101.0); MEAN PLATELET VOLUME 9.6 fl (7.4-10.4); MONOCYTE # 0.6 10^3/ul (0.3-0.9); MONOCYTES % 9.5 % (0.0-11.0); NEUTROPHIL # 4.6 10^3/ul (1.6-7.5); NEUTROPHILS % 77.8 % (39.0-77.0); PLATELET COUNT 206 10^3/UL (140-415); RED BLOOD COUNT 3.43 10^6/ul (4.70-6.10); RED CELL DISTRIBUTION WIDTH 15.2 % (11.5-14.5); WHITE BLOOD COUNT 5.9 10^3/ul (4.8-10.8)
[2016-08-05 08:31] LABS: CALCIUM 8.5 mg/dl (8.4-10.2); CREATININE 0.75 mg/dl (0.61-1.24); POTASSIUM 4.3 mmol/L (3.5-5.1)
[2016-08-05] MEDS: METHYLPREDNISOLONE 40 MG INJ IV SCH ×2 (09:00→21:16)
[2016-08-05] MEDS: DIVALPROEX (EC) 500 MG TAB PO SCH ×3 (09:00→21:16)
[2016-08-05] MEDS: QUETIAPINE 25 MG TAB PO SCH ×3 (09:00→21:16)
[2016-08-05] MEDS: ROPINIROLE 1 MG TAB PO SCH ×2 (09:00→21:16)
[2016-08-05] MEDS: FOLIC ACID 1 MG TAB PO SCH (09:01)
[2016-08-05] MEDS: PSYLLIUM (SUGAR FREE) PACKET PO SCH ×2 (09:01→21:17)
[2016-08-05] MEDS: MUPIROCIN 2% 22 GM OINT TOP SCH ×2 (09:01→21:31)
[2016-08-05] MEDS: DOCUSATE SODIUM 100 MG CAP PO SCH (09:01)
[2016-08-05] MEDS: ENOXAPARIN 30 MG/0.3 ML SYG SC SCH (09:08)
[2016-08-05] MEDS: CEFEPIME 1GM/50 ML (PMX) 50 ML IVPB SCH ×2 (09:08→21:16)
--- NOTE | 2016-08-05 13:29 | CONS ---
Date/Time of Note Date/Time of Note DATE: 08/05/16 TIME: 13:28 Assessment/Plan Assessment/Plan Chief Complaint/Hosp Course SUBJECTIVE: No events overnight. Looks comfortable, no fevers. MICROBIOLOGY: Nares swab came back positive for MRSA. ANTIMICROBIALS: The patient is on: 1. Vancomycin. 2. Cefepime. PHYSICAL EXAMINATION: GENERAL: This is a fragile, chronically ill-appearing, elderly man who is awake , in no distress. HEENT: Head atraumatic, normocephalic. Sclerae anicteric. Buccal mucosa dry. NECK: Supple. CHEST: Rise symmetrical. Breath sounds diminished to bases, scattered respiratory wheezes. HEART: S1, S2. ABDOMEN: Soft, bowel sounds present. EXTREMITIES: Without cyanosis or edema. ASSESSMENT: 1. Sepsis with fevers, leukocytosis, and tachycardia on admission. 2. Healthcare-associated pneumonia. 3. Chronic obstructive pulmonary disease exacerbation. 4. History of schizophrenia and GI bleeding. 5. Methicillin-resistant Staphylococcus aureus nares colonization. PLAN: The patient remains stable. Continue antibiotics, Bactroban to nares. DW staff Problems: Consultation Date/Type/Reason Admit Date/Time August 01, 2016 at 22:43 Type of Consultation: ID Exam/Review of Systems Vital Signs Vitals Vital Signs Date Time Temp Pulse Resp B/P Pulse Ox O2 Delivery O2 Flow Rate FiO2 08/05/16 12:25 98.6 93 18 122/53 91 08/05/16 11:07 Nasal Cannula 2.0 08/03/16 17:04 32 Intake and Output 08/04/16 08/04/16 08/05/16 15:00 23:00 07:00 Intake Total 50 ml 650 ml 650 ml Output Total 800 ml 600 ml Balance 50 ml -150 ml 50 ml Results Result Diagram: 08/05/16 0715 08/05/16 0715 Results 24 hrs Laboratory Tests Test 08/05/16 07:15 White Blood Count 5.9 # Red Blood Count 3.43 L Hemoglobin 9.4 L Hematocrit 31.4 L Mean Corpuscular Volume 91.5 Mean Corpuscular Hemoglobin 27.4 L Mean Corpuscular Hemoglobin Concent 29.9 L Red Cell Distribution Width 15.2 H Platelet Count 206 # Mean Platelet Volume 9.6 Neutrophils % 77.8 H Lymphocytes % 10.4 L Monocytes % 9.5 Eosinophils % 0.0 Basophils % 0.3 Nucleated Red Blood Cells % 0.0 Neutrophils # 4.6 Lymphocytes # 0.6 L Monocytes # 0.6 Eosinophils # 0.0 Basophils # 0.0 Nucleated Red Blood Cells # 0.0 Sodium Level 144 Potassium Level 4.3 Chloride Level 100 Carbon Dioxide Level 35 H Anion Gap 13 # Blood Urea Nitrogen 14 Creatinine 0.75 Glucose Level 126 Calcium Level 8.5 Medications Medications Current Medications Ondansetron HCl (Zofran Inj) 4 mg Q6H PRN IV NAUSEA AND/OR VOMITING; Start at 23:00 Morphine Sulfate (morphine) 2 mg Q4H PRN IV PAIN LEVEL 7-10; Start 08/01/16 at 23:00 Enoxaparin Sodium 30 mg 30 mg DAILY SC Last administered on 08/05/16 09:08; Admin Dose 30 MG; Start 08/02/16 at 09:00 Cefepime HCl (Maxipime 1gm/50 ml (Pmx)) 50 ml @ 100 mls/hr Q12 IVPB Last administered on 08/05/16 09:08; Admin Dose 100 MLS/HR; Start 08/02/16 at 09:00 Pantoprazole (Protonix Tab) 40 mg DAILY@06 PO Last administered on 08/05/16 06: 54; Admin Dose 40 MG; Start 08/03/16 at 06:00 Divalproex Sodium (Depakote) 500 mg TID PO Last administered on 08/05/16 12:40 ; Admin Dose 500 MG; Start 08/02/16 at 21:00 Docusate Sodium (Colace) 100 mg DAILY PO Last administered on 08/05/16 09:01; Admin Dose 100 MG; Start 08/03/16 at 09:00 Folic Acid (Folic Acid) 1 mg DAILY PO Last administered on 08/05/16 09:01; Admin Dose 1 MG; Start 08/03/16 at 09:00 Lorazepam (Ativan) 1 mg Q12H PRN PO ANXIETY; Start 08/02/16 at 15:00 Magnesium Hydroxide (Milk Of Mag) 30 ml DAILY PRN PO CONSTIPATION; Start at 15:00 Quetiapine Fumarate (Seroquel) 50 mg TID PO Last administered on 08/05/16 12:40 ; Admin Dose 50 MG; Start 08/02/16 at 21:00 Ropinirole HCl (Requip) 1 mg BID PO Last administered on 08/05/16 09:00; Admin Dose 1 MG; Start 08/02/16 at 21:00 Senna (Senokot) 1 tab QHS PO Last administered on 08/04/16 20:47; Admin Dose 1 TAB; Start 08/02/16 at 21:00 Mirtazapine (Remeron) 15 mg QHS PO Last administered on 08/04/16 20:47; Admin Dose 15 MG; Start 08/02/16 at 21:00 Psyllium Hydrophilic Mucilloid (Metamucil (Sugar Free)) 1 pkt BID PO Last administered on 08/05/16 09:01; Admin Dose 1 PKT; Start 08/02/16 at 21:00 Zolpidem Tartrate (Ambien) 5 mg QHS PRN PO INSOMNIA; Start 08/02/16 at 15:00 Acetaminophen (Tylenol Tab) 650 mg Q6H PRN PO PAIN AND OR ELEVATED TEMP; Start 08/02/16 at 21:00 Mupirocin 1 applic 1 applic BID TOP Last administered on 08/05/16 09:01; Admin Dose 1 APPLIC; Start 08/03/16 at 21:00 Vancomycin HCl (Vancocin) 250 ml @ 125 mls/hr Q12H IVPB Last administered on 03:35; Admin Dose 125 MLS/HR; Start 08/04/16 at 04:00 Methylprednisolone Sodium Succinate (Solu-Medrol) 40 mg Q12 IV Last administered on 08/05/16 09:00; Admin Dose 40 MG; Start 08/05/16 at 09:00 ARCHIE BORJA NP Aug 05, 2016 13:29
--- NOTE | 2016-08-05 18:25 | PN ---
Date/Time of Note Date/Time of Note DATE: 08/05/16 TIME: 18:24 Assessment/Plan VTE Prophylaxis VTE Prophylaxis Intervention: SCD's Lines/Catheters IV [facility]ter Type (from [facility]): Peripheral IV Urinary Cath still in place: No Assessment/Plan Chief Complaint/Hosp Course Remains afebrile, borderline BP, awake,alert, denies pain. ASSESSMENT AND PLAN: - Severe sepsis secondary to pneumonia. Dr. Aceves is following in infection disease consultation. Continue antibiotics per ID. - correction facility acquired pneumonia. - Chronic obstructive pulmonary disease with possible exacerbation. Continue breathing treatments. - Hypothyroidism, continue Synthroid. - Gastroesophageal reflux disease. Continue Protonix. - Schizophrenia. Continue Seroquel. - Possible Parkinson's disease. Continue Requip. Further recommendations based on clinical course. Plan of care discussed with Dr. Lorenzo. Problems: Exam/Review of Systems Vital Signs Vitals Vital Signs Date Time Temp Pulse Resp B/P Pulse Ox O2 Delivery O2 Flow Rate FiO2 08/05/16 16:10 86 08/05/16 15:22 97.8 18 113/58 94 08/05/16 14:40 3.0 08/05/16 14:39 Nasal Cannula 08/03/16 17:04 32 Intake and Output 08/04/16 08/04/16 08/05/16 15:00 23:00 07:00 Intake Total 50 ml 650 ml 650 ml Output Total 800 ml 600 ml Balance 50 ml -150 ml 50 ml Exam Constitutional: alert Head: normocephalic Neck: supple Respiratory: diminished breath sounds Cardiovascular: nl pulses, regular rate and rhythm Gastrointestinal: non-tender, soft Extremities: normal pulses Results Result Diagram: 08/05/16 0715 08/05/16 0715 Results 24 hrs Laboratory Tests Test 08/05/16 07:15 White Blood Count 5.9 # Red Blood Count 3.43 L Hemoglobin 9.4 L Hematocrit 31.4 L Mean Corpuscular Volume 91.5 Mean Corpuscular Hemoglobin 27.4 L Mean Corpuscular Hemoglobin Concent 29.9 L Red Cell Distribution Width 15.2 H Platelet Count 206 # Mean Platelet Volume 9.6 Neutrophils % 77.8 H Lymphocytes % 10.4 L Monocytes % 9.5 Eosinophils % 0.0 Basophils % 0.3 Nucleated Red Blood Cells % 0.0 Neutrophils # 4.6 Lymphocytes # 0.6 L Monocytes # 0.6 Eosinophils # 0.0 Basophils # 0.0 Nucleated Red Blood Cells # 0.0 Sodium Level 144 Potassium Level 4.3 Chloride Level 100 Carbon Dioxide Level 35 H Anion Gap 13 # Blood Urea Nitrogen 14 Creatinine 0.75 Glucose Level 126 Calcium Level 8.5 Medications Medications Current Medications Ondansetron HCl (Zofran Inj) 4 mg Q6H PRN IV NAUSEA AND/OR VOMITING; Start at 23:00 Morphine Sulfate (morphine) 2 mg Q4H PRN IV PAIN LEVEL 7-10; Start 08/01/16 at 23:00 Enoxaparin Sodium 30 mg 30 mg DAILY SC Last administered on 08/05/16 09:08; Admin Dose 30 MG; Start 08/02/16 at 09:00 Cefepime HCl (Maxipime 1gm/50 ml (Pmx)) 50 ml @ 100 mls/hr Q12 IVPB Last administered on 08/05/16 09:08; Admin Dose 100 MLS/HR; Start 08/02/16 at 09:00 Pantoprazole (Protonix Tab) 40 mg DAILY@06 PO Last administered on 08/05/16 06: 54; Admin Dose 40 MG; Start 08/03/16 at 06:00 Divalproex Sodium (Depakote) 500 mg TID PO Last administered on 08/05/16 12:40 ; Admin Dose 500 MG; Start 08/02/16 at 21:00 Docusate Sodium (Colace) 100 mg DAILY PO Last administered on 08/05/16 09:01; Admin Dose 100 MG; Start 08/03/16 at 09:00 Folic Acid (Folic Acid) 1 mg DAILY PO Last administered on 08/05/16 09:01; Admin Dose 1 MG; Start 08/03/16 at 09:00 Lorazepam (Ativan) 1 mg Q12H PRN PO ANXIETY; Start 08/02/16 at 15:00 Magnesium Hydroxide (Milk Of Mag) 30 ml DAILY PRN PO CONSTIPATION; Start at 15:00 Quetiapine Fumarate (Seroquel) 50 mg TID PO Last administered on 08/05/16 12:40 ; Admin Dose 50 MG; Start 08/02/16 at 21:00 Ropinirole HCl (Requip) 1 mg BID PO Last administered on 08/05/16 09:00; Admin Dose 1 MG; Start 08/02/16 at 21:00 Senna (Senokot) 1 tab QHS PO Last administered on 08/04/16 20:47; Admin Dose 1 TAB; Start 08/02/16 at 21:00 Mirtazapine (Remeron) 15 mg QHS PO Last administered on 08/04/16 20:47; Admin Dose 15 MG; Start 08/02/16 at 21:00 Psyllium Hydrophilic Mucilloid (Metamucil (Sugar Free)) 1 pkt BID PO Last administered on 08/05/16 09:01; Admin Dose 1 PKT; Start 08/02/16 at 21:00 Zolpidem Tartrate (Ambien) 5 mg QHS PRN PO INSOMNIA; Start 08/02/16 at 15:00 Acetaminophen (Tylenol Tab) 650 mg Q6H PRN PO PAIN AND OR ELEVATED TEMP; Start 08/02/16 at 21:00 Mupirocin 1 applic 1 applic BID TOP Last administered on 08/05/16 09:01; Admin Dose 1 APPLIC; Start 08/03/16 at 21:00 Vancomycin HCl (Vancocin) 250 ml @ 125 mls/hr Q12H IVPB Last administered on 16:10; Admin Dose 125 MLS/HR; Start 08/04/16 at 04:00 Methylprednisolone Sodium Succinate (Solu-Medrol) 40 mg Q12 IV Last administered on 08/05/16 09:00; Admin Dose 40 MG; Start 08/05/16 at 09:00 Miscellaneous Information (*Rx Drug Level Order Reminder*) 1 ONCE ONCE XX ; Start 08/06/16 at 15:00; Stop 08/06/16 at 15:01 SORAIDA KING Aug 05, 2016 18:25
[2016-08-05] MEDS: MIRTAZAPINE 15 MG TAB PO SCH (21:16)
[2016-08-05] MEDS: SENNA TAB PO SCH (21:16)
[2016-08-06] VITALS (12 sets, daily range): BP systolic 97–147; BP diastolic 50–87; PULSE 72–84; RESP 18–20
[2016-08-06] MEDS: ALBUTEROL/IPRATROPIUM (NEB) 3 ML AMP HHN SCH ×4 (01:30→19:49)
[2016-08-06] MEDS: VANCOMYCIN 1 GM in NS 250 ML IVPB SCH ×2 (04:03→16:42)
[2016-08-06] MEDS: PANTOPRAZOLE (EC) 40 MG TAB PO SCH (06:25)
[2016-08-06] MEDS: LEVOTHYROXINE 25 MCG TAB PO SCH (06:25)
[2016-08-06 08:46] LABS: CALCIUM 8.4 mg/dl (8.4-10.2); CREATININE 0.76 mg/dl (0.61-1.24); POTASSIUM 4.4 mmol/L (3.5-5.1)
[2016-08-06] MEDS: METHYLPREDNISOLONE 40 MG INJ IV SCH ×2 (09:40→21:22)
[2016-08-06] MEDS: PSYLLIUM (SUGAR FREE) PACKET PO SCH ×3 (09:40→21:22)
[2016-08-06] MEDS: FOLIC ACID 1 MG TAB PO SCH (09:41)
[2016-08-06] MEDS: ROPINIROLE 1 MG TAB PO SCH ×2 (09:41→21:21)
[2016-08-06] MEDS: DOCUSATE SODIUM 100 MG CAP PO SCH (09:41)
[2016-08-06] MEDS: QUETIAPINE 25 MG TAB PO SCH ×3 (09:41→21:21)
[2016-08-06] MEDS: MUPIROCIN 2% 22 GM OINT TOP SCH ×2 (09:42→21:24)
[2016-08-06] MEDS: DIVALPROEX (EC) 500 MG TAB PO SCH ×3 (09:46→21:22)
[2016-08-06] MEDS: CEFEPIME 1GM/50 ML (PMX) 50 ML IVPB SCH ×2 (09:46→21:23)
[2016-08-06] MEDS: ENOXAPARIN 30 MG/0.3 ML SYG SC SCH (09:59)
--- NOTE | 2016-08-06 15:01 | CONS ---
Date/Time of Note Date/Time of Note DATE: 08/06/16 TIME: 15:00 Assessment/Plan Assessment/Plan Chief Complaint/Hosp Course SUBJECTIVE: No events overnight. Alert, feels good, Looks comfortable, no fevers. MICROBIOLOGY: Nares swab came back positive for MRSA. ANTIMICROBIALS: day# 5 1. Vancomycin. 2. Cefepime. PHYSICAL EXAMINATION: GENERAL: This is a fragile, chronically ill-appearing, elderly man who is awake , in no distress. HEENT: Head atraumatic, normocephalic. Sclerae anicteric. Buccal mucosa dry. NECK: Supple. CHEST: Rise symmetrical. Breath sounds diminished to bases, scattered respiratory wheezes. HEART: S1, S2. ABDOMEN: Soft, bowel sounds present. EXTREMITIES: Without cyanosis or edema. ASSESSMENT: 1. Resolving sepsis with fevers, leukocytosis, and tachycardia on admission. 2. Healthcare-associated pneumonia. 3. Chronic obstructive pulmonary disease exacerbation. 4. History of schizophrenia and GI bleeding. 5. Methicillin-resistant Staphylococcus aureus nares colonization. PLAN: The patient remains stable. Continue antibiotics, Bactroban to nares. DW staff Problems: Consultation Date/Type/Reason Admit Date/Time August 01, 2016 at 22:43 Type of Consultation: ID Exam/Review of Systems Vital Signs Vitals Vital Signs Date Time Temp Pulse Resp B/P Pulse Ox O2 Delivery O2 Flow Rate FiO2 08/06/16 13:28 76 38 93 Nasal Cannula 2.0 08/06/16 11:47 98.0 99/58 08/03/16 17:04 32 Intake and Output 08/05/16 08/05/16 08/06/16 15:00 23:00 07:00 Intake Total 770 ml 750 ml Output Total 800 ml 700 ml Balance -30 ml 50 ml Results Result Diagram: 08/05/16 0715 08/06/16 0725 Results 24 hrs Laboratory Tests Test 08/06/16 07:25 Sodium Level 142 Potassium Level 4.4 Chloride Level 102 Carbon Dioxide Level 36 H Anion Gap 8 Blood Urea Nitrogen 22 H Creatinine 0.76 Glucose Level 103 Calcium Level 8.4 Medications Medications Current Medications Ondansetron HCl (Zofran Inj) 4 mg Q6H PRN IV NAUSEA AND/OR VOMITING; Start at 23:00 Morphine Sulfate (morphine) 2 mg Q4H PRN IV PAIN LEVEL 7-10; Start 08/01/16 at 23:00 Enoxaparin Sodium 30 mg 30 mg DAILY SC Last administered on 08/06/16 09:59; Admin Dose 30 MG; Start 08/02/16 at 09:00 Cefepime HCl (Maxipime 1gm/50 ml (Pmx)) 50 ml @ 100 mls/hr Q12 IVPB Last administered on 08/06/16 09:46; Admin Dose 100 MLS/HR; Start 08/02/16 at 09:00 Pantoprazole (Protonix Tab) 40 mg DAILY@06 PO Last administered on 08/06/16 06: 25; Admin Dose 40 MG; Start 08/03/16 at 06:00 Divalproex Sodium (Depakote) 500 mg TID PO Last administered on 08/06/16 12:36 ; Admin Dose 500 MG; Start 08/02/16 at 21:00 Docusate Sodium (Colace) 100 mg DAILY PO Last administered on 08/06/16 09:41; Admin Dose 100 MG; Start 08/03/16 at 09:00 Folic Acid (Folic Acid) 1 mg DAILY PO Last administered on 08/06/16 09:41; Admin Dose 1 MG; Start 08/03/16 at 09:00 Lorazepam (Ativan) 1 mg Q12H PRN PO ANXIETY; Start 08/02/16 at 15:00 Magnesium Hydroxide (Milk Of Mag) 30 ml DAILY PRN PO CONSTIPATION; Start at 15:00 Quetiapine Fumarate (Seroquel) 50 mg TID PO Last administered on 08/06/16 12:36 ; Admin Dose 50 MG; Start 08/02/16 at 21:00 Ropinirole HCl (Requip) 1 mg BID PO Last administered on 08/06/16 09:41; Admin Dose 1 MG; Start 08/02/16 at 21:00 Senna (Senokot) 1 tab QHS PO Last administered on 08/05/16 21:16; Admin Dose 1 TAB; Start 08/02/16 at 21:00 Mirtazapine (Remeron) 15 mg QHS PO Last administered on 08/05/16 21:16; Admin Dose 15 MG; Start 08/02/16 at 21:00 Psyllium Hydrophilic Mucilloid (Metamucil (Sugar Free)) 1 pkt BID PO Last administered on 08/06/16 09:40; Admin Dose 1 PKT; Start 08/02/16 at 21:00 Zolpidem Tartrate (Ambien) 5 mg QHS PRN PO INSOMNIA; Start 08/02/16 at 15:00 Acetaminophen (Tylenol Tab) 650 mg Q6H PRN PO PAIN AND OR ELEVATED TEMP; Start 08/02/16 at 21:00 Mupirocin 1 applic 1 applic BID TOP Last administered on 08/06/16 09:42; Admin Dose 1 APPLIC; Start 08/03/16 at 21:00 Vancomycin HCl (Vancocin) 250 ml @ 125 mls/hr Q12H IVPB Last administered on 04:03; Admin Dose 125 MLS/HR; Start 08/04/16 at 04:00 Methylprednisolone Sodium Succinate (Solu-Medrol) 40 mg Q12 IV Last administered on 08/06/16 09:40; Admin Dose 40 MG; Start 08/05/16 at 09:00 Miscellaneous Information (*Rx Drug Level Order Reminder*) 1 ONCE ONCE XX ; Start 08/06/16 at 15:00; Stop 08/06/16 at 15:01 ARCHIE BORJA NP Aug 06, 2016 15:01
--- NOTE | 2016-08-06 19:38 | PN ---
Date/Time of Note Date/Time of Note DATE: 08/06/16 TIME: 19:37 Assessment/Plan VTE Prophylaxis VTE Prophylaxis Intervention: other Lines/Catheters IV Catheter Type (from [facility]): Saline Lock Urinary Cath still in place: No Assessment/Plan Assessment/Plan - Severe sepsis secondary to pneumonia. Dr. Aceves is following in infection disease consultation. Continue antibiotics per ID. - [facility]. - Chronic obstructive pulmonary disease with possible exacerbation. Continue breathing treatments. - Hypothyroidism, continue Synthroid. - Gastroesophageal reflux disease. Continue Protonix. - Schizophrenia. Continue Seroquel. - Possible Parkinson's disease. Continue Requip. Further recommendations based on clinical course. Plan of care discussed with Dr. Lorenzo. Subjective 24 Hr Interval Summary Free Text/Dictation nad, sitting up in bed, hd dinner, angella any complaints, dw staff- uses inappropriate language, kings get telepsych evaluation for nay need for medication change. Respiratory: no complaints Cardiovascular: no complaints Gastrointestinal: no complaints Exam/Review of Systems Vital Signs Vitals Vital Signs Date Time Temp Pulse Resp B/P Pulse Ox O2 Delivery O2 Flow Rate FiO2 08/06/16 19:36 98.2 79 18 147/67 98 08/06/16 13:28 Nasal Cannula 2.0 08/03/16 17:04 32 Intake and Output 08/05/16 08/05/16 08/06/16 15:00 23:00 07:00 Intake Total 770 ml 750 ml Output Total 800 ml 700 ml Balance -30 ml 50 ml Exam Constitutional: alert, well developed Psych: nl mood/affect Respiratory: clear to auscultation, normal air movement Cardiovascular: nl pulses, regular rate and rhythm Gastrointestinal: non-tender, soft Musculoskeletal: nl extremities to inspection Extremities: normal pulses Neurological: nl speech Results Result Diagram: 08/05/16 0715 08/06/16 0725 Results 24 hrs Laboratory Tests Test 08/06/16 07:25 08/06/16 15:08 Sodium Level 142 Potassium Level 4.4 Chloride Level 102 Carbon Dioxide Level 36 H Anion Gap 8 Blood Urea Nitrogen 22 H Creatinine 0.76 Glucose Level 103 Calcium Level 8.4 Vancomycin Level Trough 15.1 Medications Medications Current Medications Ondansetron HCl (Zofran Inj) 4 mg Q6H PRN IV NAUSEA AND/OR VOMITING; Start at 23:00 Morphine Sulfate (morphine) 2 mg Q4H PRN IV PAIN LEVEL 7-10; Start 08/01/16 at 23:00 Enoxaparin Sodium 30 mg 30 mg DAILY SC Last administered on 08/06/16 09:59; Admin Dose 30 MG; Start 08/02/16 at 09:00 Cefepime HCl (Maxipime 1gm/50 ml (Pmx)) 50 ml @ 100 mls/hr Q12 IVPB Last administered on 08/06/16 09:46; Admin Dose 100 MLS/HR; Start 08/02/16 at 09:00 Pantoprazole (Protonix Tab) 40 mg DAILY@06 PO Last administered on 08/06/16 06: 25; Admin Dose 40 MG; Start 08/03/16 at 06:00 Divalproex Sodium (Depakote) 500 mg TID PO Last administered on 08/06/16 12:36 ; Admin Dose 500 MG; Start 08/02/16 at 21:00 Docusate Sodium (Colace) 100 mg DAILY PO Last administered on 08/06/16 09:41; Admin Dose 100 MG; Start 08/03/16 at 09:00 Folic Acid (Folic Acid) 1 mg DAILY PO Last administered on 08/06/16 09:41; Admin Dose 1 MG; Start 08/03/16 at 09:00 Lorazepam (Ativan) 1 mg Q12H PRN PO ANXIETY; Start 08/02/16 at 15:00 Magnesium Hydroxide (Milk Of Mag) 30 ml DAILY PRN PO CONSTIPATION; Start at 15:00 Quetiapine Fumarate (Seroquel) 50 mg TID PO Last administered on 08/06/16 12:36 ; Admin Dose 50 MG; Start 08/02/16 at 21:00 Ropinirole HCl (Requip) 1 mg BID PO Last administered on 08/06/16 09:41; Admin Dose 1 MG; Start 08/02/16 at 21:00 Senna (Senokot) 1 tab QHS PO Last administered on 08/05/16 21:16; Admin Dose 1 TAB; Start 08/02/16 at 21:00 Mirtazapine (Remeron) 15 mg QHS PO Last administered on 08/05/16 21:16; Admin Dose 15 MG; Start 08/02/16 at 21:00 Psyllium Hydrophilic Mucilloid (Metamucil (Sugar Free)) 1 pkt BID PO Last administered on 08/06/16 09:40; Admin Dose 1 PKT; Start 08/02/16 at 21:00 Zolpidem Tartrate (Ambien) 5 mg QHS PRN PO INSOMNIA; Start 08/02/16 at 15:00 Acetaminophen (Tylenol Tab) 650 mg Q6H PRN PO PAIN AND OR ELEVATED TEMP; Start 08/02/16 at 21:00 Mupirocin 1 applic 1 applic BID TOP Last administered on 08/06/16 09:42; Admin Dose 1 APPLIC; Start 08/03/16 at 21:00 Vancomycin HCl (Vancocin) 250 ml @ 125 mls/hr Q12H IVPB Last administered on 16:42; Admin Dose 125 MLS/HR; Start 08/04/16 at 04:00 Methylprednisolone Sodium Succinate (Solu-Medrol) 40 mg Q12 IV Last administered on 08/06/16 09:40; Admin Dose 40 MG; Start 08/05/16 at 09:00 ALEJANDRINA KHAN Aug 06, 2016 19:38
[2016-08-06] MEDS: SENNA TAB PO SCH ×2 (21:00→21:21)
[2016-08-06] MEDS: MIRTAZAPINE 15 MG TAB PO SCH (21:21)
[2016-08-07] VITALS (12 sets, daily range): BP systolic 128–180; BP diastolic 59–81; PULSE 72–95; RESP 19–20
[2016-08-07] MEDS: ALBUTEROL/IPRATROPIUM (NEB) 3 ML AMP HHN SCH ×4 (01:18→20:07)
[2016-08-07] MEDS: VANCOMYCIN 1 GM in NS 250 ML IVPB SCH ×2 (04:04→15:36)
[2016-08-07] MEDS: LEVOTHYROXINE 25 MCG TAB PO SCH (06:00)
[2016-08-07] MEDS: PANTOPRAZOLE (EC) 40 MG TAB PO SCH (06:00)
[2016-08-07 08:24] LABS: ADD SCAN DIFF NO
[2016-08-07 08:34] LABS: ABNORMAL IP MESSAGE 1; BASOPHILS % 0.2 % (0.0-2.0); HEMATOCRIT 30.4 % (42.0-52.0); HEMOGLOBIN 9.1 g/dl (14.0-18.0); LYMPHOCYTES # 2.2 10^3/ul (0.8-2.9); MEAN CORPUSCULAR HEMOGLOBIN 27.7 pg (29.0-33.0); MEAN CORPUSCULAR HGB CONC 29.9 g/dl (32.0-37.0); MEAN CORPUSCULAR VOLUME 92.4 fl (82.0-101.0); MEAN PLATELET VOLUME 9.8 fl (7.4-10.4); MONOCYTE # 1.1 10^3/ul (0.3-0.9); MONOCYTES % 12.8 % (0.0-11.0); NEUTROPHIL # 4.5 10^3/ul (1.6-7.5); NEUTROPHILS % 53.2 % (39.0-77.0); PLATELET COUNT 353 10^3/UL (140-415); RED BLOOD COUNT 3.29 10^6/ul (4.70-6.10); RED CELL DISTRIBUTION WIDTH 15.9 % (11.5-14.5); WHITE BLOOD COUNT 8.4 10^3/ul (4.8-10.8)
[2016-08-07] MEDS: FOLIC ACID 1 MG TAB PO SCH (08:45)
[2016-08-07] MEDS: DIVALPROEX (EC) 500 MG TAB PO SCH ×3 (08:45→20:30)
[2016-08-07] MEDS: CEFEPIME 1GM/50 ML (PMX) 50 ML IVPB SCH ×2 (08:45→20:32)
[2016-08-07] MEDS: QUETIAPINE 25 MG TAB PO SCH ×3 (08:45→20:30)
[2016-08-07] MEDS: ROPINIROLE 1 MG TAB PO SCH ×2 (08:45→20:30)
[2016-08-07] MEDS: METHYLPREDNISOLONE 40 MG INJ IV SCH ×2 (08:45→20:43)
[2016-08-07] MEDS: DOCUSATE SODIUM 100 MG CAP PO SCH (08:46)
[2016-08-07] MEDS: PSYLLIUM (SUGAR FREE) PACKET PO SCH ×3 (08:46→20:43)
[2016-08-07] MEDS: MUPIROCIN 2% 22 GM OINT TOP SCH ×2 (08:47→20:34)
[2016-08-07] MEDS: ENOXAPARIN 30 MG/0.3 ML SYG SC SCH (08:49)
[2016-08-07 08:53] LABS: CALCIUM 8.6 mg/dl (8.4-10.2); CREATININE 0.79 mg/dl (0.61-1.24); POTASSIUM 4.2 mmol/L (3.5-5.1)
--- NOTE | 2016-08-07 15:25 | CONS ---
Date/Time of Note Date/Time of Note DATE: 08/07/16 TIME: 15:24 Assessment/Plan Assessment/Plan Chief Complaint/Hosp Course SUBJECTIVE: No events overnight. Alert, feels good, Looks comfortable, no fevers. MICROBIOLOGY: Nares swab and sputum cx came back positive for MRSA. ANTIMICROBIALS: day# 6 1. Vancomycin. 2. Cefepime. PHYSICAL EXAMINATION: GENERAL: This is a fragile, chronically ill-appearing, elderly man who is awake , in no distress. HEENT: Head atraumatic, normocephalic. Sclerae anicteric. Buccal mucosa dry. NECK: Supple. CHEST: Rise symmetrical. Breath sounds diminished to bases, scattered respiratory wheezes. HEART: S1, S2. ABDOMEN: Soft, bowel sounds present. EXTREMITIES: Without cyanosis or edema. ASSESSMENT: 1. Resolving sepsis with fevers, leukocytosis, and tachycardia on admission. 2. Healthcare-associated pneumonia. 3. Chronic obstructive pulmonary disease exacerbation. 4. History of schizophrenia and GI bleeding. 5. Methicillin-resistant Staphylococcus aureus nares colonization. PLAN: The patient remains stable. Continue antibiotics, continue Bactroban to nares, f/u cxr. DW staff Problems: Consultation Date/Type/Reason Admit Date/Time August 01, 2016 at 22:43 Type of Consultation: ID Exam/Review of Systems Vital Signs Vitals Vital Signs Date Time Temp Pulse Resp B/P Pulse Ox O2 Delivery O2 Flow Rate FiO2 08/07/16 14:10 85 26 95 Nasal Cannula 3.0 08/07/16 11:48 98.3 154/81 08/03/16 17:04 32 Intake and Output 08/06/16 08/06/16 08/07/16 15:00 23:00 07:00 Intake Total 550 ml 750 ml Output Total 200 ml 400 ml Balance 350 ml 350 ml Results Result Diagram: 08/07/16 0725 08/07/16 0725 Results 24 hrs Laboratory Tests Test 08/07/16 07:25 White Blood Count 8.4 # Red Blood Count 3.29 L Hemoglobin 9.1 L Hematocrit 30.4 L Mean Corpuscular Volume 92.4 Mean Corpuscular Hemoglobin 27.7 L Mean Corpuscular Hemoglobin Concent 29.9 L Red Cell Distribution Width 15.9 H Platelet Count 353 # Mean Platelet Volume 9.8 Neutrophils % 53.2 Lymphocytes % 26.0 Monocytes % 12.8 H Eosinophils % 0.0 Basophils % 0.2 Nucleated Red Blood Cells % 0.0 Neutrophils # 4.5 Lymphocytes # 2.2 Monocytes # 1.1 H Eosinophils # 0.0 Basophils # 0.0 Nucleated Red Blood Cells # 0.0 Sodium Level 146 H Potassium Level 4.2 Chloride Level 101 Carbon Dioxide Level 36 H Anion Gap 13 Blood Urea Nitrogen 20 Creatinine 0.79 Glucose Level 93 Calcium Level 8.6 Medications Medications Current Medications Ondansetron HCl (Zofran Inj) 4 mg Q6H PRN IV NAUSEA AND/OR VOMITING; Start at 23:00 Morphine Sulfate (morphine) 2 mg Q4H PRN IV PAIN LEVEL 7-10; Start 08/01/16 at 23:00 Enoxaparin Sodium 30 mg 30 mg DAILY SC Last administered on 08/07/16 08:49; Admin Dose 30 MG; Start 08/02/16 at 09:00 Cefepime HCl (Maxipime 1gm/50 ml (Pmx)) 50 ml @ 100 mls/hr Q12 IVPB Last administered on 08/07/16 08:45; Admin Dose 100 MLS/HR; Start 08/02/16 at 09:00 Pantoprazole (Protonix Tab) 40 mg DAILY@06 PO Last administered on 08/07/16 06: 00; Admin Dose 40 MG; Start 08/03/16 at 06:00 Divalproex Sodium (Depakote) 500 mg TID PO Last administered on 08/07/16 12:36 ; Admin Dose 500 MG; Start 08/02/16 at 21:00 Docusate Sodium (Colace) 100 mg DAILY PO Last administered on 08/06/16 09:41; Admin Dose 100 MG; Start 08/03/16 at 09:00 Folic Acid (Folic Acid) 1 mg DAILY PO Last administered on 08/07/16 08:45; Admin Dose 1 MG; Start 08/03/16 at 09:00 Lorazepam (Ativan) 1 mg Q12H PRN PO ANXIETY; Start 08/02/16 at 15:00 Magnesium Hydroxide (Milk Of Mag) 30 ml DAILY PRN PO CONSTIPATION; Start at 15:00 Quetiapine Fumarate (Seroquel) 50 mg TID PO Last administered on 08/07/16 12:36 ; Admin Dose 50 MG; Start 08/02/16 at 21:00 Ropinirole HCl (Requip) 1 mg BID PO Last administered on 08/07/16 08:45; Admin Dose 1 MG; Start 08/02/16 at 21:00 Senna (Senokot) 1 tab QHS PO Last administered on 08/05/16 21:16; Admin Dose 1 TAB; Start 08/02/16 at 21:00 Mirtazapine (Remeron) 15 mg QHS PO Last administered on 08/06/16 21:21; Admin Dose 15 MG; Start 08/02/16 at 21:00 Psyllium Hydrophilic Mucilloid (Metamucil (Sugar Free)) 1 pkt BID PO Last administered on 08/06/16 09:40; Admin Dose 1 PKT; Start 08/02/16 at 21:00 Zolpidem Tartrate (Ambien) 5 mg QHS PRN PO INSOMNIA; Start 08/02/16 at 15:00 Acetaminophen (Tylenol Tab) 650 mg Q6H PRN PO PAIN AND OR ELEVATED TEMP; Start 08/02/16 at 21:00 Mupirocin 1 applic 1 applic BID TOP Last administered on 08/07/16 08:47; Admin Dose 1 APPLIC; Start 08/03/16 at 21:00 Vancomycin HCl (Vancocin) 250 ml @ 125 mls/hr Q12H IVPB Last administered on 04:04; Admin Dose 125 MLS/HR; Start 08/04/16 at 04:00 Methylprednisolone Sodium Succinate (Solu-Medrol) 40 mg Q12 IV Last administered on 08/07/16 08:45; Admin Dose 40 MG; Start 08/05/16 at 09:00 ARCHIE BORJA NP Aug 07, 2016 15:25
--- NOTE | 2016-08-07 18:15 | PN ---
Date/Time of Note Date/Time of Note DATE: 08/07/16 TIME: 18:13 Assessment/Plan Lines/Catheters IV Catheter Type (from [facility]): Saline Lock Urinary Cath still in place: No Assessment/Plan Assessment/Plan - Severe sepsis secondary to pneumonia. Dr. Aceves is following in infection disease consultation. Continue antibiotics per ID. - [facility] facility acquired pneumonia. - Chronic obstructive pulmonary disease with possible exacerbation. Continue breathing treatments. - Hypothyroidism, continue Synthroid. - Gastroesophageal reflux disease. Continue Protonix. - Schizophrenia. Continue Seroquel. - Possible Parkinson's disease. Continue Requip. - MRSA sputum- contact isolation - per ID Further recommendations based on clinical course. Plan of care discussed with Dr. Lorenzo. Subjective 24 Hr Interval Summary Respiratory: no complaints Cardiovascular: no complaints Gastrointestinal: no complaints Exam/Review of Systems Vital Signs Vitals Vital Signs Date Time Temp Pulse Resp B/P Pulse Ox O2 Delivery O2 Flow Rate FiO2 08/07/16 16:00 98.2 79 19 128/59 99 08/07/16 14:10 Nasal Cannula 3.0 08/03/16 17:04 32 Intake and Output 08/06/16 08/06/16 08/07/16 15:00 23:00 07:00 Intake Total 550 ml 750 ml Output Total 200 ml 400 ml Balance 350 ml 350 ml Exam Constitutional: alert, well developed ENMT: nl external ears & nose Neck: non-tender, supple Respiratory: clear to auscultation, normal air movement Cardiovascular: nl pulses, regular rate and rhythm Gastrointestinal: non-tender, soft Extremities: normal pulses Neurological: nl mental status, nl speech Lymph: nontender Results Result Diagram: 08/07/16 0725 08/07/16 0725 Results 24 hrs Laboratory Tests Test 08/07/16 07:25 White Blood Count 8.4 # Red Blood Count 3.29 L Hemoglobin 9.1 L Hematocrit 30.4 L Mean Corpuscular Volume 92.4 Mean Corpuscular Hemoglobin 27.7 L Mean Corpuscular Hemoglobin Concent 29.9 L Red Cell Distribution Width 15.9 H Platelet Count 353 # Mean Platelet Volume 9.8 Neutrophils % 53.2 Lymphocytes % 26.0 Monocytes % 12.8 H Eosinophils % 0.0 Basophils % 0.2 Nucleated Red Blood Cells % 0.0 Neutrophils # 4.5 Lymphocytes # 2.2 Monocytes # 1.1 H Eosinophils # 0.0 Basophils # 0.0 Nucleated Red Blood Cells # 0.0 Sodium Level 146 H Potassium Level 4.2 Chloride Level 101 Carbon Dioxide Level 36 H Anion Gap 13 Blood Urea Nitrogen 20 Creatinine 0.79 Glucose Level 93 Calcium Level 8.6 Medications Medications Current Medications Ondansetron HCl (Zofran Inj) 4 mg Q6H PRN IV NAUSEA AND/OR VOMITING; Start at 23:00 Morphine Sulfate (morphine) 2 mg Q4H PRN IV PAIN LEVEL 7-10; Start 08/01/16 at 23:00 Enoxaparin Sodium 30 mg 30 mg DAILY SC Last administered on 08/07/16 08:49; Admin Dose 30 MG; Start 08/02/16 at 09:00 Cefepime HCl (Maxipime 1gm/50 ml (Pmx)) 50 ml @ 100 mls/hr Q12 IVPB Last administered on 08/07/16 08:45; Admin Dose 100 MLS/HR; Start 08/02/16 at 09:00 Pantoprazole (Protonix Tab) 40 mg DAILY@06 PO Last administered on 08/07/16 06: 00; Admin Dose 40 MG; Start 08/03/16 at 06:00 Divalproex Sodium (Depakote) 500 mg TID PO Last administered on 08/07/16 12:36 ; Admin Dose 500 MG; Start 08/02/16 at 21:00 Docusate Sodium (Colace) 100 mg DAILY PO Last administered on 08/06/16 09:41; Admin Dose 100 MG; Start 08/03/16 at 09:00 Folic Acid (Folic Acid) 1 mg DAILY PO Last administered on 08/07/16 08:45; Admin Dose 1 MG; Start 08/03/16 at 09:00 Lorazepam (Ativan) 1 mg Q12H PRN PO ANXIETY; Start 08/02/16 at 15:00 Magnesium Hydroxide (Milk Of Mag) 30 ml DAILY PRN PO CONSTIPATION; Start at 15:00 Quetiapine Fumarate (Seroquel) 50 mg TID PO Last administered on 08/07/16 12:36 ; Admin Dose 50 MG; Start 08/02/16 at 21:00 Ropinirole HCl (Requip) 1 mg BID PO Last administered on 08/07/16 08:45; Admin Dose 1 MG; Start 08/02/16 at 21:00 Senna (Senokot) 1 tab QHS PO Last administered on 08/05/16 21:16; Admin Dose 1 TAB; Start 08/02/16 at 21:00 Mirtazapine (Remeron) 15 mg QHS PO Last administered on 08/06/16 21:21; Admin Dose 15 MG; Start 08/02/16 at 21:00 Psyllium Hydrophilic Mucilloid (Metamucil (Sugar Free)) 1 pkt BID PO Last administered on 08/06/16 09:40; Admin Dose 1 PKT; Start 08/02/16 at 21:00 Zolpidem Tartrate (Ambien) 5 mg QHS PRN PO INSOMNIA; Start 08/02/16 at 15:00 Acetaminophen (Tylenol Tab) 650 mg Q6H PRN PO PAIN AND OR ELEVATED TEMP; Start 08/02/16 at 21:00 Mupirocin 1 applic 1 applic BID TOP Last administered on 08/07/16 08:47; Admin Dose 1 APPLIC; Start 08/03/16 at 21:00 Vancomycin HCl (Vancocin) 250 ml @ 125 mls/hr Q12H IVPB Last administered on 15:36; Admin Dose 125 MLS/HR; Start 08/04/16 at 04:00 Methylprednisolone Sodium Succinate (Solu-Medrol) 40 mg Q12 IV Last administered on 08/07/16 08:45; Admin Dose 40 MG; Start 08/05/16 at 09:00 ALEJANDRINA KHAN Aug 07, 2016 18:15
[2016-08-07] MEDS: AMLODIPINE 10 MG TAB PO SCH (20:30)
[2016-08-07] MEDS: MIRTAZAPINE 15 MG TAB PO SCH (20:30)
[2016-08-07] MEDS: SENNA TAB PO SCH (20:42)
[2016-08-08 00:02] VITALS: BP 113/56; RESP 16
[2016-08-08] MEDS: ALBUTEROL/IPRATROPIUM (NEB) 3 ML AMP HHN SCH ×4 (01:11→20:29)
[2016-08-08] MEDS: VANCOMYCIN 1 GM in NS 250 ML IVPB SCH ×2 (04:28→17:24)
[2016-08-08 04:30] VITALS: BP 112/58; RESP 20
[2016-08-08] MEDS: PANTOPRAZOLE (EC) 40 MG TAB PO SCH (06:19)
[2016-08-08] MEDS: LEVOTHYROXINE 25 MCG TAB PO SCH (06:19)
[2016-08-08 07:41] VITALS: BP 113/56; RESP 18
[2016-08-08 08:01] LABS: ADD SCAN DIFF NO
[2016-08-08 08:11] LABS: ABNORMAL IP MESSAGE 1; BASOPHIL # 0.1 10^3/ul (0.0-0.1); BASOPHILS % 0.8 % (0.0-2.0); EOSINOPHILS % 0.2 % (0.0-7.0); HEMATOCRIT 33.1 % (42.0-52.0); HEMOGLOBIN 9.9 g/dl (14.0-18.0); LYMPHOCYTES # 1.1 10^3/ul (0.8-2.9); LYMPHOCYTES % 16.5 % (15.0-51.0); MEAN CORPUSCULAR HEMOGLOBIN 27.7 pg (29.0-33.0); MEAN CORPUSCULAR HGB CONC 29.9 g/dl (32.0-37.0); MEAN CORPUSCULAR VOLUME 92.5 fl (82.0-101.0); MEAN PLATELET VOLUME 11.8 fl (7.4-10.4); MONOCYTE # 0.8 10^3/ul (0.3-0.9); MONOCYTES % 11.7 % (0.0-11.0); NEUTROPHIL # 3.8 10^3/ul (1.6-7.5); NEUTROPHILS % 59.7 % (39.0-77.0); NUCLEATED RED BLOOD CELLS% 0.3 /100WBC (0.0-0.0); PLATELET COUNT 225 10^3/UL (140-415); RED BLOOD COUNT 3.58 10^6/ul (4.70-6.10); RED CELL DISTRIBUTION WIDTH 15.9 % (11.5-14.5); WHITE BLOOD COUNT 6.4 10^3/ul (4.8-10.8)
[2016-08-08 08:36] LABS: CALCIUM 8.8 mg/dl (8.4-10.2); CREATININE 0.71 mg/dl (0.61-1.24); POTASSIUM 4.9 mmol/L (3.5-5.1)
[2016-08-08] MEDS: FOLIC ACID 1 MG TAB PO SCH (08:42)
[2016-08-08] MEDS: ROPINIROLE 1 MG TAB PO SCH ×2 (08:42→21:09)
[2016-08-08] MEDS: DOCUSATE SODIUM 100 MG CAP PO SCH (08:42)
[2016-08-08] MEDS: METHYLPREDNISOLONE 40 MG INJ IV SCH ×4 (08:42→21:09)
[2016-08-08] MEDS: CEFEPIME 1GM/50 ML (PMX) 50 ML IVPB SCH ×4 (08:43→21:09)
[2016-08-08] MEDS: DIVALPROEX (EC) 500 MG TAB PO SCH ×3 (08:43→21:10)
[2016-08-08] MEDS: QUETIAPINE 25 MG TAB PO SCH ×3 (08:43→21:09)
[2016-08-08] MEDS: AMLODIPINE 10 MG TAB PO SCH (08:43)
[2016-08-08] MEDS: PSYLLIUM (SUGAR FREE) PACKET PO SCH ×2 (08:43→21:09)
[2016-08-08] MEDS: MUPIROCIN 2% 22 GM OINT TOP SCH ×2 (08:44→21:10)
[2016-08-08] MEDS: ENOXAPARIN 30 MG/0.3 ML SYG SC SCH (08:54)
[2016-08-08 11:20] VITALS: BP 103/52; RESP 18
--- NOTE | 2016-08-08 13:56 | CONS ---
Date/Time of Note Date/Time of Note DATE: 08/08/16 TIME: 13:55 Assessment/Plan Assessment/Plan Chief Complaint/Hosp Course SUBJECTIVE: No events overnight. Looks comfortable, no fevers. MICROBIOLOGY: Nares swab and sputum cx came back positive for MRSA. ANTIMICROBIALS: day# 7 1. Vancomycin. 2. Cefepime. PHYSICAL EXAMINATION: GENERAL: This is a fragile, chronically ill-appearing, elderly man who is awake , in no distress. HEENT: Head atraumatic, normocephalic. Sclerae anicteric. Buccal mucosa dry. NECK: Supple. CHEST: Rise symmetrical. Breath sounds diminished to bases, scattered respiratory wheezes. HEART: S1, S2. ABDOMEN: Soft, bowel sounds present. EXTREMITIES: Without cyanosis or edema. ASSESSMENT: 1. Resolving sepsis with fevers, leukocytosis, and tachycardia on admission. 2. Healthcare-associated pneumonia. 3. Chronic obstructive pulmonary disease exacerbation. 4. History of schizophrenia and GI bleeding. 5. Methicillin-resistant Staphylococcus aureus nares colonization. PLAN: The patient remains stable. Continue antibiotics, continue Bactroban to nares. DW staff Problems: Consultation Date/Type/Reason Admit Date/Time August 01, 2016 at 22:43 Type of Consultation: ID Exam/Review of Systems Vital Signs Vitals Vital Signs Date Time Temp Pulse Resp B/P Pulse Ox O2 Delivery O2 Flow Rate FiO2 08/08/16 11:20 98.6 69 18 103/52 95 08/08/16 08:10 Nasal Cannula 2.0 Intake and Output 08/07/16 08/07/16 08/08/16 15:00 23:00 07:00 Intake Total 500 ml 200 ml Output Total 600 ml 800 ml Balance -100 ml -600 ml Results Result Diagram: 08/08/16 0650 08/08/16 0650 Results 24 hrs Laboratory Tests Test 08/08/16 06:50 White Blood Count 6.4 # Red Blood Count 3.58 L Hemoglobin 9.9 L Hematocrit 33.1 L Mean Corpuscular Volume 92.5 Mean Corpuscular Hemoglobin 27.7 L Mean Corpuscular Hemoglobin Concent 29.9 L Red Cell Distribution Width 15.9 H Platelet Count 225 # Mean Platelet Volume 11.8 #H Neutrophils % 59.7 Lymphocytes % 16.5 Monocytes % 11.7 H Eosinophils % 0.2 Basophils % 0.8 Nucleated Red Blood Cells % 0.3 H Neutrophils # 3.8 Lymphocytes # 1.1 Monocytes # 0.8 Eosinophils # 0.0 Basophils # 0.1 Nucleated Red Blood Cells # 0.0 Sodium Level 143 Potassium Level 4.9 Chloride Level 103 Carbon Dioxide Level 33 H Anion Gap 12 Blood Urea Nitrogen 19 Creatinine 0.71 Glucose Level 94 Calcium Level 8.8 Medications Medications Current Medications Ondansetron HCl (Zofran Inj) 4 mg Q6H PRN IV NAUSEA AND/OR VOMITING; Start at 23:00 Morphine Sulfate (morphine) 2 mg Q4H PRN IV PAIN LEVEL 7-10; Start 08/01/16 at 23:00 Enoxaparin Sodium 30 mg 30 mg DAILY SC Last administered on 08/08/16 08:54; Admin Dose 30 MG; Start 08/02/16 at 09:00 Cefepime HCl (Maxipime 1gm/50 ml (Pmx)) 50 ml @ 100 mls/hr Q12 IVPB Last administered on 08/07/16 20:32; Admin Dose 100 MLS/HR; Start 08/02/16 at 09:00 Pantoprazole (Protonix Tab) 40 mg DAILY@06 PO Last administered on 08/08/16 06: 19; Admin Dose 40 MG; Start 08/03/16 at 06:00 Divalproex Sodium (Depakote) 500 mg TID PO Last administered on 08/08/16 13:32 ; Admin Dose 500 MG; Start 08/02/16 at 21:00 Docusate Sodium (Colace) 100 mg DAILY PO Last administered on 08/08/16 08:42; Admin Dose 100 MG; Start 08/03/16 at 09:00 Folic Acid (Folic Acid) 1 mg DAILY PO Last administered on 08/08/16 08:42; Admin Dose 1 MG; Start 08/03/16 at 09:00 Lorazepam (Ativan) 1 mg Q12H PRN PO ANXIETY; Start 08/02/16 at 15:00 Magnesium Hydroxide (Milk Of Mag) 30 ml DAILY PRN PO CONSTIPATION; Start at 15:00 Quetiapine Fumarate (Seroquel) 50 mg TID PO Last administered on 08/08/16 13:32 ; Admin Dose 50 MG; Start 08/02/16 at 21:00 Ropinirole HCl (Requip) 1 mg BID PO Last administered on 08/08/16 08:42; Admin Dose 1 MG; Start 08/02/16 at 21:00 Senna (Senokot) 1 tab QHS PO Last administered on 08/05/16 21:16; Admin Dose 1 TAB; Start 08/02/16 at 21:00 Mirtazapine (Remeron) 15 mg QHS PO Last administered on 08/07/16 20:30; Admin Dose 15 MG; Start 08/02/16 at 21:00 Psyllium Hydrophilic Mucilloid (Metamucil (Sugar Free)) 1 pkt BID PO Last administered on 08/08/16 08:43; Admin Dose 1 PKT; Start 08/02/16 at 21:00 Zolpidem Tartrate (Ambien) 5 mg QHS PRN PO INSOMNIA; Start 08/02/16 at 15:00 Acetaminophen (Tylenol Tab) 650 mg Q6H PRN PO PAIN AND OR ELEVATED TEMP; Start 08/02/16 at 21:00 Mupirocin 1 applic 1 applic BID TOP Last administered on 08/08/16 08:44; Admin Dose 1 APPLIC; Start 08/03/16 at 21:00 Vancomycin HCl (Vancocin) 250 ml @ 125 mls/hr Q12H IVPB Last administered on 04:28; Admin Dose 125 MLS/HR; Start 08/04/16 at 04:00 Methylprednisolone Sodium Succinate (Solu-Medrol) 40 mg Q12 IV Last administered on 08/07/16 20:43; Admin Dose 40 MG; Start 08/05/16 at 09:00 Hydralazine HCl (Apresoline) 25 mg Q6H PRN PO ELEVATED BLOOD PRESSURE; Start at 20:30 Amlodipine Besylate (Norvasc) 10 mg DAILY PO Last administered on 08/08/16 08: 43; Admin Dose 10 MG; Start 08/07/16 at 20:30 ARCHIE BORJA NP Aug 08, 2016 13:56
--- NOTE | 2016-08-08 19:53 | PN ---
Date/Time of Note Date/Time of Note DATE: 08/08/16 TIME: 19:51 Assessment/Plan VTE Prophylaxis VTE Prophylaxis Intervention: SCD's Lines/Catheters [facility]from [facility] Saline Lock Urinary Cath still in place: No Assessment/Plan Chief Complaint/Hosp Course Patient is awake alert, patient remains hemodynamically stable, comfortable and supplemental oxygen. ASSESSMENT AND PLAN: - Severe sepsis secondary to pneumonia. Dr. Aceves is following in infection disease consultation. Continue antibiotics per ID. - HCAP. - Chronic obstructive pulmonary disease with possible exacerbation. Continue breathing treatments. - Hypothyroidism, continue Synthroid. - Gastroesophageal reflux disease. Continue Protonix. - Schizophrenia. Continue Seroquel. - Possible Parkinson's disease. Continue Requip. Further recommendations based on clinical course. Plan of care discussed with Dr. Lorenzo. Problems: Exam/Review of Systems Vital Signs Vitals Vital Signs Date Time Temp Pulse Resp B/P Pulse Ox O2 Delivery O2 Flow Rate FiO2 08/08/16 14:01 65 20 98 Nasal Cannula 3.0 08/08/16 11:20 98.6 103/52 Intake and Output 08/07/16 08/07/16 08/08/16 15:00 23:00 07:00 Intake Total 500 ml 200 ml Output Total 600 ml 800 ml Balance -100 ml -600 ml Exam Constitutional: alert Head: normocephalic Neck: supple Respiratory: diminished breath sounds Cardiovascular: nl pulses, regular rate and rhythm Gastrointestinal: non-tender, soft Extremities: normal pulses Results Result Diagram: 08/08/16 0650 08/08/16 0650 Results 24 hrs Laboratory Tests Test 08/08/16 06:50 White Blood Count 6.4 # Red Blood Count 3.58 L Hemoglobin 9.9 L Hematocrit 33.1 L Mean Corpuscular Volume 92.5 Mean Corpuscular Hemoglobin 27.7 L Mean Corpuscular Hemoglobin Concent 29.9 L Red Cell Distribution Width 15.9 H Platelet Count 225 # Mean Platelet Volume 11.8 #H Neutrophils % 59.7 Lymphocytes % 16.5 Monocytes % 11.7 H Eosinophils % 0.2 Basophils % 0.8 Nucleated Red Blood Cells % 0.3 H Neutrophils # 3.8 Lymphocytes # 1.1 Monocytes # 0.8 Eosinophils # 0.0 Basophils # 0.1 Nucleated Red Blood Cells # 0.0 Sodium Level 143 Potassium Level 4.9 Chloride Level 103 Carbon Dioxide Level 33 H Anion Gap 12 Blood Urea Nitrogen 19 Creatinine 0.71 Glucose Level 94 Calcium Level 8.8 Medications Medications Current Medications Ondansetron HCl (Zofran Inj) 4 mg Q6H PRN IV NAUSEA AND/OR VOMITING; Start at 23:00 Morphine Sulfate (morphine) 2 mg Q4H PRN IV PAIN LEVEL 7-10; Start 08/01/16 at 23:00 Enoxaparin Sodium 30 mg 30 mg DAILY SC Last administered on 08/08/16 08:54; Admin Dose 30 MG; Start 08/02/16 at 09:00 Cefepime HCl (Maxipime 1gm/50 ml (Pmx)) 50 ml @ 100 mls/hr Q12 IVPB Last administered on 08/08/16 14:40; Admin Dose 100 MLS/HR; Start 08/02/16 at 09:00 Pantoprazole (Protonix Tab) 40 mg DAILY@06 PO Last administered on 08/08/16 06: 19; Admin Dose 40 MG; Start 08/03/16 at 06:00 Divalproex Sodium (Depakote) 500 mg TID PO Last administered on 08/08/16 13:32 ; Admin Dose 500 MG; Start 08/02/16 at 21:00 Docusate Sodium (Colace) 100 mg DAILY PO Last administered on 08/08/16 08:42; Admin Dose 100 MG; Start 08/03/16 at 09:00 Folic Acid (Folic Acid) 1 mg DAILY PO Last administered on 08/08/16 08:42; Admin Dose 1 MG; Start 08/03/16 at 09:00 Lorazepam (Ativan) 1 mg Q12H PRN PO ANXIETY; Start 08/02/16 at 15:00 Magnesium Hydroxide (Milk Of Mag) 30 ml DAILY PRN PO CONSTIPATION; Start at 15:00 Quetiapine Fumarate (Seroquel) 50 mg TID PO Last administered on 08/08/16 13:32 ; Admin Dose 50 MG; Start 08/02/16 at 21:00 Ropinirole HCl (Requip) 1 mg BID PO Last administered on 08/08/16 08:42; Admin Dose 1 MG; Start 08/02/16 at 21:00 Senna (Senokot) 1 tab QHS PO Last administered on 08/05/16 21:16; Admin Dose 1 TAB; Start 08/02/16 at 21:00 Mirtazapine (Remeron) 15 mg QHS PO Last administered on 08/07/16 20:30; Admin Dose 15 MG; Start 08/02/16 at 21:00 Psyllium Hydrophilic Mucilloid (Metamucil (Sugar Free)) 1 pkt BID PO Last administered on 08/08/16 08:43; Admin Dose 1 PKT; Start 08/02/16 at 21:00 Zolpidem Tartrate (Ambien) 5 mg QHS PRN PO INSOMNIA; Start 08/02/16 at 15:00 Acetaminophen (Tylenol Tab) 650 mg Q6H PRN PO PAIN AND OR ELEVATED TEMP; Start 08/02/16 at 21:00 Mupirocin 1 applic 1 applic BID TOP Last administered on 08/08/16 08:44; Admin Dose 1 APPLIC; Start 08/03/16 at 21:00 Vancomycin HCl (Vancocin) 250 ml @ 125 mls/hr Q12H IVPB Last administered on 17:24; Admin Dose 125 MLS/HR; Start 08/04/16 at 04:00 Methylprednisolone Sodium Succinate (Solu-Medrol) 40 mg Q12 IV Last administered on 08/08/16 14:39; Admin Dose 40 MG; Start 08/05/16 at 09:00 Hydralazine HCl (Apresoline) 25 mg Q6H PRN PO ELEVATED BLOOD PRESSURE; Start at 20:30 Amlodipine Besylate (Norvasc) 10 mg DAILY PO Last administered on 08/08/16 08: 43; Admin Dose 10 MG; Start 08/07/16 at 20:30 Miscellaneous Information (*Rx Drug Level Order Reminder*) 1 ONCE ONCE XX ; Start 08/09/16 at 03:00; Stop 08/09/16 at 03:01 SORAIDA KING Aug 08, 2016 19:53
[2016-08-08 20:07] VITALS: BP 133/62; RESP 20
[2016-08-08] MEDS: MIRTAZAPINE 15 MG TAB PO SCH (21:09)
[2016-08-08] MEDS: SENNA TAB PO SCH (21:09)
[2016-08-09] MEDS: ALBUTEROL/IPRATROPIUM (NEB) 3 ML AMP HHN SCH ×4 (01:09→20:11)
[2016-08-09 04:17] LABS: CALCIUM 8.6 mg/dl (8.4-10.2); CREATININE 0.83 mg/dl (0.61-1.24); POTASSIUM 4.6 mmol/L (3.5-5.1)
[2016-08-09] MEDS: VANCOMYCIN 1 GM in NS 250 ML IVPB SCH (04:30)
[2016-08-09] MEDS: PANTOPRAZOLE (EC) 40 MG TAB PO SCH (06:32)
[2016-08-09] MEDS: LEVOTHYROXINE 25 MCG TAB PO SCH (06:32)
[2016-08-09 08:17] VITALS: BP 102/55; RESP 18
[2016-08-09] MEDS: CEFEPIME 1GM/50 ML (PMX) 50 ML IVPB SCH (08:59)
[2016-08-09] MEDS: METHYLPREDNISOLONE 40 MG INJ IV SCH ×2 (09:00→20:48)
[2016-08-09] MEDS: DOCUSATE SODIUM 100 MG CAP PO SCH (09:01)
[2016-08-09] MEDS: PSYLLIUM (SUGAR FREE) PACKET PO SCH ×2 (09:01→20:48)
[2016-08-09] MEDS: FOLIC ACID 1 MG TAB PO SCH (09:01)
[2016-08-09] MEDS: DIVALPROEX (EC) 500 MG TAB PO SCH ×3 (09:01→20:48)
[2016-08-09] MEDS: ROPINIROLE 1 MG TAB PO SCH ×2 (09:01→20:48)
[2016-08-09] MEDS: AMLODIPINE 10 MG TAB PO SCH (09:02)
[2016-08-09] MEDS: MUPIROCIN 2% 22 GM OINT TOP SCH ×2 (09:03→20:50)
[2016-08-09] MEDS: QUETIAPINE 25 MG TAB PO SCH ×3 (09:03→20:48)
[2016-08-09] MEDS: ENOXAPARIN 30 MG/0.3 ML SYG SC SCH (09:15)
--- NOTE | 2016-08-09 13:59 | CONS ---
Date/Time of Note Date/Time of Note DATE: 08/09/16 TIME: 13:57 Assessment/Plan Assessment/Plan Chief Complaint/Hosp Course SUBJECTIVE: No events overnight. Awake, nad, no fevers. MICROBIOLOGY: Nares swab and sputum cx came back positive for MRSA. ANTIMICROBIALS: day# 8 1. Vancomycin. 2. Cefepime. PHYSICAL EXAMINATION: GENERAL: This is a fragile, chronically ill-appearing, elderly man who is awake , in no distress. HEENT: Head atraumatic, normocephalic. Sclerae anicteric. Buccal mucosa dry. NECK: Supple. CHEST: Rise symmetrical. Breath sounds diminished to bases, scattered respiratory wheezes. HEART: S1, S2. ABDOMEN: Soft, bowel sounds present. EXTREMITIES: Without cyanosis or edema. ASSESSMENT: 1. Resolving sepsis with fevers, leukocytosis, and tachycardia on admission. 2. Healthcare-associated pneumonia. 3. Chronic obstructive pulmonary disease exacerbation. 4. History of schizophrenia and GI bleeding. 5. Methicillin-resistant Staphylococcus aureus nares colonization. PLAN: The patient remains stable. Continue present care, change abx to Bactrim , continue nares. DW staff Problems: Consultation Date/Type/Reason Admit Date/Time August 01, 2016 at 22:43 Type of Consultation: ID Exam/Review of Systems Vital Signs Vitals Vital Signs Date Time Temp Pulse Resp B/P Pulse Ox O2 Delivery O2 Flow Rate FiO2 08/09/16 12:51 Nasal Cannula 2.0 08/09/16 09:12 94 20 98 08/09/16 08:17 97.8 102/55 Intake and Output 08/08/16 08/08/16 08/09/16 15:00 23:00 07:00 Intake Total 1170 ml 650 ml Output Total 450 ml 600 ml Balance 720 ml 50 ml Results Result Diagram: 08/08/16 0650 08/09/16 0335 Results 24 hrs Laboratory Tests Test 08/09/16 03:35 Sodium Level 143 Potassium Level 4.6 Chloride Level 102 Carbon Dioxide Level 37 H Anion Gap 9 Blood Urea Nitrogen 24 H Creatinine 0.83 Glucose Level 154 Calcium Level 8.6 Vancomycin Level Trough 16.1 Medications Medications Current Medications Ondansetron HCl (Zofran Inj) 4 mg Q6H PRN IV NAUSEA AND/OR VOMITING; Start at 23:00 Morphine Sulfate (morphine) 2 mg Q4H PRN IV PAIN LEVEL 7-10; Start 08/01/16 at 23:00 Enoxaparin Sodium 30 mg 30 mg DAILY SC Last administered on 08/09/16 09:15; Admin Dose 30 MG; Start 08/02/16 at 09:00 Cefepime HCl (Maxipime 1gm/50 ml (Pmx)) 50 ml @ 100 mls/hr Q12 IVPB Last administered on 08/09/16 08:59; Admin Dose 100 MLS/HR; Start 08/02/16 at 09:00 Pantoprazole (Protonix Tab) 40 mg DAILY@06 PO Last administered on 08/09/16 06: 32; Admin Dose 40 MG; Start 08/03/16 at 06:00 Divalproex Sodium (Depakote) 500 mg TID PO Last administered on 08/09/16 13:00 ; Admin Dose 500 MG; Start 08/02/16 at 21:00 Docusate Sodium (Colace) 100 mg DAILY PO Last administered on 08/09/16 09:01; Admin Dose 100 MG; Start 08/03/16 at 09:00 Folic Acid (Folic Acid) 1 mg DAILY PO Last administered on 08/09/16 09:01; Admin Dose 1 MG; Start 08/03/16 at 09:00 Lorazepam (Ativan) 1 mg Q12H PRN PO ANXIETY; Start 08/02/16 at 15:00 Magnesium Hydroxide (Milk Of Mag) 30 ml DAILY PRN PO CONSTIPATION; Start at 15:00 Quetiapine Fumarate (Seroquel) 50 mg TID PO Last administered on 08/09/16 13:00 ; Admin Dose 50 MG; Start 08/02/16 at 21:00 Ropinirole HCl (Requip) 1 mg BID PO Last administered on 08/09/16 09:01; Admin Dose 1 MG; Start 08/02/16 at 21:00 Senna (Senokot) 1 tab QHS PO Last administered on 08/08/16 21:09; Admin Dose 1 TAB; Start 08/02/16 at 21:00 Mirtazapine (Remeron) 15 mg QHS PO Last administered on 08/08/16 21:09; Admin Dose 15 MG; Start 08/02/16 at 21:00 Psyllium Hydrophilic Mucilloid (Metamucil (Sugar Free)) 1 pkt BID PO Last administered on 08/09/16 09:01; Admin Dose 1 PKT; Start 08/02/16 at 21:00 Zolpidem Tartrate (Ambien) 5 mg QHS PRN PO INSOMNIA; Start 08/02/16 at 15:00 Acetaminophen (Tylenol Tab) 650 mg Q6H PRN PO PAIN AND OR ELEVATED TEMP; Start 08/02/16 at 21:00 Mupirocin 1 applic 1 applic BID TOP Last administered on 08/09/16 09:03; Admin Dose 1 APPLIC; Start 08/03/16 at 21:00 Vancomycin HCl (Vancocin) 250 ml @ 125 mls/hr Q12H IVPB Last administered on 04:30; Admin Dose 125 MLS/HR; Start 08/04/16 at 04:00 Methylprednisolone Sodium Succinate (Solu-Medrol) 40 mg Q12 IV Last administered on 08/09/16 09:00; Admin Dose 40 MG; Start 08/05/16 at 09:00 Hydralazine HCl (Apresoline) 25 mg Q6H PRN PO ELEVATED BLOOD PRESSURE; Start at 20:30 Amlodipine Besylate (Norvasc) 10 mg DAILY PO Last administered on 08/09/16 09: 02; Admin Dose 10 MG; Start 08/07/16 at 20:30 ARCHIE BORJA NP Aug 09, 2016 13:59
--- NOTE | 2016-08-09 18:54 | PN ---
Date/Time of Note Date/Time of Note DATE: 08/09/16 TIME: 18:52 Assessment/Plan VTE Prophylaxis VTE Prophylaxis Intervention: SCD's Lines/Catheters IV Catheter Type (from [facility]): Saline Lock Urinary Cath still in place: No Assessment/Plan Chief Complaint/Hosp Course Patient remains hemodynamically stable, reevaluate with chest x-ray tomorrow. ASSESSMENT AND PLAN: - Severe sepsis secondary to pneumonia. Dr. Aceves is following in infection disease consultation. Continue antibiotics per ID. - HCAP. - Chronic obstructive pulmonary disease with possible exacerbation. Continue breathing treatments. - Hypothyroidism, continue Synthroid. - Gastroesophageal reflux disease. Continue Protonix. - Schizophrenia. Continue Seroquel. - Possible Parkinson's disease. Continue Requip. Case management for DC planning. Further recommendations based on clinical course. Plan of care discussed with Dr. Lorenzo. Problems: Exam/Review of Systems Vital Signs Vitals Vital Signs Date Time Temp Pulse Resp B/P Pulse Ox O2 Delivery O2 Flow Rate FiO2 08/09/16 14:25 3.0 08/09/16 14:25 80 20 96 Nasal Cannula 08/09/16 08:17 97.8 102/55 Intake and Output 08/08/16 08/08/16 08/09/16 15:00 23:00 07:00 Intake Total 1170 ml 650 ml Output Total 450 ml 600 ml Balance 720 ml 50 ml Exam Constitutional: alert Head: normocephalic Neck: supple Respiratory: diminished breath sounds Cardiovascular: nl pulses, regular rate and rhythm Gastrointestinal: non-tender, soft Extremities: normal pulses Results Result Diagram: 08/08/16 0650 08/09/16 0335 Results 24 hrs Laboratory Tests Test 08/09/16 03:35 Sodium Level 143 Potassium Level 4.6 Chloride Level 102 Carbon Dioxide Level 37 H Anion Gap 9 Blood Urea Nitrogen 24 H Creatinine 0.83 Glucose Level 154 Calcium Level 8.6 Vancomycin Level Trough 16.1 Medications Medications Current Medications Ondansetron HCl (Zofran Inj) 4 mg Q6H PRN IV NAUSEA AND/OR VOMITING; Start at 23:00 Morphine Sulfate (morphine) 2 mg Q4H PRN IV PAIN LEVEL 7-10; Start 08/01/16 at 23:00 Enoxaparin Sodium (Lovenox) 30 mg DAILY SC Last administered on 08/09/16t 09:15 ; Admin Dose 30 MG; Start 08/02/16 at 09:00 Pantoprazole (Protonix Tab) 40 mg DAILY@06 PO Last administered on 08/09/16 06: 32; Admin Dose 40 MG; Start 08/03/16 at 06:00 Divalproex Sodium (Depakote) 500 mg TID PO Last administered on 08/09/16 13:00 ; Admin Dose 500 MG; Start 08/02/16 at 21:00 Docusate Sodium (Colace) 100 mg DAILY PO Last administered on 08/09/16 09:01; Admin Dose 100 MG; Start 08/03/16 at 09:00 Folic Acid (Folic Acid) 1 mg DAILY PO Last administered on 08/09/16 09:01; Admin Dose 1 MG; Start 08/03/16 at 09:00 Lorazepam (Ativan) 1 mg Q12H PRN PO ANXIETY; Start 08/02/16 at 15:00 Magnesium Hydroxide (Milk Of Mag) 30 ml DAILY PRN PO CONSTIPATION; Start at 15:00 Quetiapine Fumarate (Seroquel) 50 mg TID PO Last administered on 08/09/16 13:00 ; Admin Dose 50 MG; Start 08/02/16 at 21:00 Ropinirole HCl (Requip) 1 mg BID PO Last administered on 08/09/16 09:01; Admin Dose 1 MG; Start 08/02/16 at 21:00 Senna (Senokot) 1 tab QHS PO Last administered on 08/08/16 21:09; Admin Dose 1 TAB; Start 08/02/16 at 21:00 Mirtazapine (Remeron) 15 mg QHS PO Last administered on 08/08/16 21:09; Admin Dose 15 MG; Start 08/02/16 at 21:00 Psyllium Hydrophilic Mucilloid (Metamucil (Sugar Free)) 1 pkt BID PO Last administered on 08/09/16 09:01; Admin Dose 1 PKT; Start 08/02/16 at 21:00 Zolpidem Tartrate (Ambien) 5 mg QHS PRN PO INSOMNIA; Start 08/02/16 at 15:00 Acetaminophen (Tylenol Tab) 650 mg Q6H PRN PO PAIN AND OR ELEVATED TEMP; Start 08/02/16 at 21:00 Mupirocin (Bactroban) 1 applic BID TOP Last administered on 08/09/16 09:03; Admin Dose 1 APPLIC; Start 08/03/16 at 21:00 Methylprednisolone Sodium Succinate (Solu-Medrol) 40 mg Q12 IV Last administered on 08/09/16 09:00; Admin Dose 40 MG; Start 08/05/16 at 09:00 Hydralazine HCl (Apresoline) 25 mg Q6H PRN PO ELEVATED BLOOD PRESSURE; Start at 20:30 Amlodipine Besylate (Norvasc) 10 mg DAILY PO Last administered on 08/09/16 09: 02; Admin Dose 10 MG; Start 08/07/16 at 20:30 Trimethoprim/ Sulfamethoxazole (Bactrim (Ds)) 1 tab BID PO ; Start 08/09/16 at 21 :00 SORAIDA KING Aug 09, 2016 18:54
[2016-08-09 19:30] VITALS: BP 111/56; RESP 24
[2016-08-09] MEDS: MIRTAZAPINE 15 MG TAB PO SCH (20:48)
[2016-08-09] MEDS: SENNA TAB PO SCH (20:48)
[2016-08-09] MEDS: TRIMETHOPRIM/SULFAMETHOX (DS) TAB PO SCH (20:48)
[2016-08-10] MEDS: ALBUTEROL/IPRATROPIUM (NEB) 3 ML AMP HHN SCH ×4 (02:25→20:20)
[2016-08-10] MEDS: LEVOTHYROXINE 25 MCG TAB PO SCH (05:56)
[2016-08-10] MEDS: PANTOPRAZOLE (EC) 40 MG TAB PO SCH (05:56)
[2016-08-10 07:16] VITALS: BP 128/81; RESP 16
[2016-08-10 07:22] VITALS: BP 120/58; RESP 18
--- NOTE | 2016-08-10 07:43 | RADRPT ---
PROCEDURE: XR Chest. CLINICAL INDICATION: pna eval TECHNIQUE: Single frontal view of the chest was obtained. COMPARISON: Chest x-ray from 08/04/2016 FINDINGS: There is stable mild cardiomegaly. There are patchy opacities in the right mid to lower lung zone w hich are mildly decreased compared to the prior chest x-ray from 08/04/2016. The aortic arch is calcified. There is mild prominence of interstitial markings, likely due to chronic / senescent changes. There is no significant pleural effusion or pneumothorax. IMPRESSION: Mildly decreased prominence of patchy opacities in the right mid to lower lung zone which are suspic ious for pneumonia. Stable mild cardiomegaly. RPTAT: EE Physician Terrance Date Time Electronically viewed and signed by Physician Terrance on 08/10/2016 07:43 /
[2016-08-10] MEDS: METHYLPREDNISOLONE 40 MG INJ IV SCH ×2 (09:14→20:41)
[2016-08-10] MEDS: FOLIC ACID 1 MG TAB PO SCH (09:15)
[2016-08-10] MEDS: AMLODIPINE 10 MG TAB PO SCH (09:15)
[2016-08-10] MEDS: DOCUSATE SODIUM 100 MG CAP PO SCH (09:15)
[2016-08-10] MEDS: TRIMETHOPRIM/SULFAMETHOX (DS) TAB PO SCH ×2 (09:15→20:43)
[2016-08-10] MEDS: PSYLLIUM (SUGAR FREE) PACKET PO SCH ×2 (09:15→20:43)
[2016-08-10] MEDS: ROPINIROLE 1 MG TAB PO SCH ×2 (09:15→20:43)
[2016-08-10] MEDS: DIVALPROEX (EC) 500 MG TAB PO SCH ×3 (09:15→20:42)
[2016-08-10] MEDS: QUETIAPINE 25 MG TAB PO SCH ×3 (09:16→20:43)
[2016-08-10] MEDS: MUPIROCIN 2% 22 GM OINT TOP SCH ×2 (09:16→20:44)
[2016-08-10] MEDS: ENOXAPARIN 30 MG/0.3 ML SYG SC SCH (09:23)
--- NOTE | 2016-08-10 13:03 | CONS ---
Date/Time of Note Date/Time of Note DATE: 08/10/16 TIME: 13:02 Assessment/Plan Assessment/Plan Chief Complaint/Hosp Course SUBJECTIVE: No events overnight, no fevers. MICROBIOLOGY: Nares swab and sputum cx came back positive for MRSA. ANTIMICROBIALS: day# 9 Bactrim, s/p Vanco/Cefepime PHYSICAL EXAMINATION: GENERAL: This is a fragile, chronically ill-appearing, elderly man who is awake , in no distress. HEENT: Head atraumatic, normocephalic. Sclerae anicteric. Buccal mucosa dry. NECK: Supple. CHEST: Rise symmetrical. Breath sounds diminished to bases, scattered respiratory wheezes. HEART: S1, S2. ABDOMEN: Soft, bowel sounds present. EXTREMITIES: Without cyanosis or edema. ASSESSMENT: 1. Resolving sepsis with fevers, leukocytosis, and tachycardia on admission. 2. Healthcare-associated pneumonia. 3. Chronic obstructive pulmonary disease exacerbation. 4. History of schizophrenia and GI bleeding. 5. Methicillin-resistant Staphylococcus aureus nares colonization. PLAN: The patient remains stable. Continue present care, abx staff Problems: Consultation Date/Type/Reason Admit Date/Time August 01, 2016 at 22:43 Type of Consultation: ID Exam/Review of Systems Vital Signs Vitals Vital Signs Date Time Temp Pulse Resp B/P Pulse Ox O2 Delivery O2 Flow Rate FiO2 08/10/16 08:15 80 20 98 Nasal Cannula 3.0 08/10/16 07:22 98.2 120/58 Intake and Output 08/09/16 08/09/16 08/10/16 15:00 23:00 07:00 Intake Total 50 ml 500 ml Output Total 950 ml Balance 50 ml -450 ml Results Result Diagram: 08/08/16 0650 08/09/16 0335 Medications Medications Current Medications Ondansetron HCl (Zofran Inj) 4 mg Q6H PRN IV NAUSEA AND/OR VOMITING; Start at 23:00 Morphine Sulfate (morphine) 2 mg Q4H PRN IV PAIN LEVEL 7-10; Start 08/01/16 at 23:00 Enoxaparin Sodium (Lovenox) 30 mg DAILY SC Last administered on 08/10/16t 09:23 ; Admin Dose 30 MG; Start 08/02/16 at 09:00 Pantoprazole (Protonix Tab) 40 mg DAILY@06 PO Last administered on 08/10/16 05: 56; Admin Dose 40 MG; Start 08/03/16 at 06:00 Divalproex Sodium (Depakote) 500 mg TID PO Last administered on 08/10/16 12:34 ; Admin Dose 500 MG; Start 08/02/16 at 21:00 Docusate Sodium (Colace) 100 mg DAILY PO Last administered on 08/10/16 09:15; Admin Dose 100 MG; Start 08/03/16 at 09:00 Folic Acid (Folic Acid) 1 mg DAILY PO Last administered on 08/10/16 09:15; Admin Dose 1 MG; Start 08/03/16 at 09:00 Lorazepam (Ativan) 1 mg Q12H PRN PO ANXIETY; Start 08/02/16 at 15:00 Magnesium Hydroxide (Milk Of Mag) 30 ml DAILY PRN PO CONSTIPATION; Start at 15:00 Quetiapine Fumarate (Seroquel) 50 mg TID PO Last administered on 08/10/16 12:35 ; Admin Dose 50 MG; Start 08/02/16 at 21:00 Ropinirole HCl (Requip) 1 mg BID PO Last administered on 08/10/16 09:15; Admin Dose 1 MG; Start 08/02/16 at 21:00 Senna (Senokot) 1 tab QHS PO Last administered on 08/09/16 20:48; Admin Dose 1 TAB; Start 08/02/16 at 21:00 Mirtazapine (Remeron) 15 mg QHS PO Last administered on 08/09/16 20:48; Admin Dose 15 MG; Start 08/02/16 at 21:00 Psyllium Hydrophilic Mucilloid (Metamucil (Sugar Free)) 1 pkt BID PO Last administered on 08/10/16 09:15; Admin Dose 1 PKT; Start 08/02/16 at 21:00 Zolpidem Tartrate (Ambien) 5 mg QHS PRN PO INSOMNIA; Start 08/02/16 at 15:00 Acetaminophen (Tylenol Tab) 650 mg Q6H PRN PO PAIN AND OR ELEVATED TEMP; Start 08/02/16 at 21:00 Mupirocin (Bactroban) 1 applic BID TOP Last administered on 08/10/16 09:16; Admin Dose 1 APPLIC; Start 08/03/16 at 21:00 Methylprednisolone Sodium Succinate (Solu-Medrol) 40 mg Q12 IV Last administered on 08/10/16 09:14; Admin Dose 40 MG; Start 08/05/16 at 09:00 Hydralazine HCl (Apresoline) 25 mg Q6H PRN PO ELEVATED BLOOD PRESSURE; Start at 20:30 Amlodipine Besylate (Norvasc) 10 mg DAILY PO Last administered on 08/10/16 09: 15; Admin Dose 10 MG; Start 08/07/16 at 20:30 Trimethoprim/ Sulfamethoxazole (Bactrim (Ds)) 1 tab BID PO Last administered on 08/10/16 09:15; Admin Dose 1 TAB; Start 08/09/16 at 21:00 ARCHIE BORJA NP Aug 10, 2016 13:03
--- NOTE | 2016-08-10 16:21 | PN ---
Date/Time of Note Date/Time of Note DATE: 08/10/16 TIME: 16:18 Assessment/Plan VTE Prophylaxis VTE Prophylaxis Intervention: SCD's Lines/Catheters [facility]from [facility] Saline Lock Urinary Cath still in place: No Assessment/Plan Chief Complaint/Hosp Course Patient remained stable, chest x-ray reviewed, plan for DC to long term facility when bed is available, discussed with case management no availability at [facility] today. ASSESSMENT AND PLAN: - Severe sepsis secondary to pneumonia. Dr. Aceves is following in infection disease consultation. Continue antibiotics per ID. - HCAP. - Chronic obstructive pulmonary disease with possible exacerbation. Continue breathing treatments. - Hypothyroidism, continue Synthroid. - Gastroesophageal reflux disease. Continue Protonix. - Schizophrenia. Continue Seroquel. - Possible Parkinson's disease. Continue Requip. Further recommendations based on clinical course. Plan of care discussed with Dr. Lorenzo. Problems: Exam/Review of Systems Vital Signs Vitals Vital Signs Date Time Temp Pulse Resp B/P Pulse Ox O2 Delivery O2 Flow Rate FiO2 08/10/16 13:31 3.0 08/10/16 08:15 80 20 98 Nasal Cannula 08/10/16 07:22 98.2 120/58 Intake and Output 08/09/16 08/09/16 08/10/16 15:00 23:00 07:00 Intake Total 50 ml 500 ml Output Total 950 ml Balance 50 ml -450 ml Exam Constitutional: alert Head: normocephalic Neck: supple Respiratory: diminished breath sounds Cardiovascular: nl pulses Gastrointestinal: non-tender, soft Extremities: normal pulses Results Result Diagram: 08/08/16 0650 08/09/16 0335 Medications Medications Current Medications Ondansetron HCl (Zofran Inj) 4 mg Q6H PRN IV NAUSEA AND/OR VOMITING; Start at 23:00 Morphine Sulfate (morphine) 2 mg Q4H PRN IV PAIN LEVEL 7-10; Start 08/01/16 at 23:00 Enoxaparin Sodium (Lovenox) 30 mg DAILY SC Last administered on 08/10/16 09:23 ; Admin Dose 30 MG; Start 08/02/16 at 09:00 Pantoprazole (Protonix Tab) 40 mg DAILY@06 PO Last administered on 08/10/16 05: 56; Admin Dose 40 MG; Start 08/03/16 at 06:00 Divalproex Sodium (Depakote) 500 mg TID PO Last administered on 08/10/16 12:34 ; Admin Dose 500 MG; Start 08/02/16 at 21:00 Docusate Sodium (Colace) 100 mg DAILY PO Last administered on 08/10/16 09:15; Admin Dose 100 MG; Start 08/03/16 at 09:00 Folic Acid (Folic Acid) 1 mg DAILY PO Last administered on 08/10/16 09:15; Admin Dose 1 MG; Start 08/03/16 at 09:00 Lorazepam (Ativan) 1 mg Q12H PRN PO ANXIETY; Start 08/02/16 at 15:00 Magnesium Hydroxide (Milk Of Mag) 30 ml DAILY PRN PO CONSTIPATION; Start at 15:00 Quetiapine Fumarate (Seroquel) 50 mg TID PO Last administered on 08/10/16 12:35 ; Admin Dose 50 MG; Start 08/02/16 at 21:00 Ropinirole HCl (Requip) 1 mg BID PO Last administered on 08/10/16 09:15; Admin Dose 1 MG; Start 08/02/16 at 21:00 Senna (Senokot) 1 tab QHS PO Last administered on 08/09/16 20:48; Admin Dose 1 TAB; Start 08/02/16 at 21:00 Mirtazapine (Remeron) 15 mg QHS PO Last administered on 08/09/16 20:48; Admin Dose 15 MG; Start 08/02/16 at 21:00 Psyllium Hydrophilic Mucilloid (Metamucil (Sugar Free)) 1 pkt BID PO Last administered on 08/10/16 09:15; Admin Dose 1 PKT; Start 08/02/16 at 21:00 Zolpidem Tartrate (Ambien) 5 mg QHS PRN PO INSOMNIA; Start 08/02/16 at 15:00 Acetaminophen (Tylenol Tab) 650 mg Q6H PRN PO PAIN AND OR ELEVATED TEMP; Start 08/02/16 at 21:00 Mupirocin (Bactroban) 1 applic BID TOP Last administered on 08/10/16 09:16; Admin Dose 1 APPLIC; Start 08/03/16 at 21:00 Methylprednisolone Sodium Succinate (Solu-Medrol) 40 mg Q12 IV Last administered on 08/10/16 09:14; Admin Dose 40 MG; Start 08/05/16 at 09:00 Hydralazine HCl (Apresoline) 25 mg Q6H PRN PO ELEVATED BLOOD PRESSURE; Start at 20:30 Amlodipine Besylate (Norvasc) 10 mg DAILY PO Last administered on 08/10/16 09: 15; Admin Dose 10 MG; Start 08/07/16 at 20:30 Trimethoprim/ Sulfamethoxazole (Bactrim (Ds)) 1 tab BID PO Last administered on 08/10/16 09:15; Admin Dose 1 TAB; Start 08/09/16 at 21:00 SORAIDA KING Aug 10, 2016 16:21
[2016-08-10 20:00] VITALS: BP 106/51; RESP 22
[2016-08-10] MEDS: SENNA TAB PO SCH (20:43)
[2016-08-10] MEDS: MIRTAZAPINE 15 MG TAB PO SCH (20:43)
[2016-08-11] MEDS: ALBUTEROL/IPRATROPIUM (NEB) 3 ML AMP HHN SCH ×4 (01:19→20:09)
[2016-08-11 05:33] LABS: ADD SCAN DIFF NO
[2016-08-11 05:58] LABS: BASOPHILS % 0.2 % (0.0-2.0); HEMATOCRIT 27.9 % (42.0-52.0); HEMOGLOBIN 8.4 g/dl (14.0-18.0); LYMPHOCYTES # 0.8 10^3/ul (0.8-2.9); LYMPHOCYTES % 5.8 % (15.0-51.0); MEAN CORPUSCULAR HEMOGLOBIN 27.9 pg (29.0-33.0); MEAN CORPUSCULAR HGB CONC 30.1 g/dl (32.0-37.0); MEAN CORPUSCULAR VOLUME 92.7 fl (82.0-101.0); MEAN PLATELET VOLUME 9.5 fl (7.4-10.4); MONOCYTE # 0.4 10^3/ul (0.3-0.9); NEUTROPHIL # 11.3 10^3/ul (1.6-7.5); NEUTROPHILS % 86.6 % (39.0-77.0); PLATELET COUNT 400 10^3/UL (140-415); RED BLOOD COUNT 3.01 10^6/ul (4.70-6.10); RED CELL DISTRIBUTION WIDTH 16.4 % (11.5-14.5)
[2016-08-11 06:26] LABS: CALCIUM 8.5 mg/dl (8.4-10.2); POTASSIUM 4.7 mmol/L (3.5-5.1)
[2016-08-11] MEDS: PANTOPRAZOLE (EC) 40 MG TAB PO SCH (06:32)
[2016-08-11] MEDS: LEVOTHYROXINE 25 MCG TAB PO SCH (06:32)
[2016-08-11 08:48] VITALS: BP 116/55; RESP 22
[2016-08-11] MEDS: DOCUSATE SODIUM 100 MG CAP PO SCH (09:50)
[2016-08-11] MEDS: METHYLPREDNISOLONE 40 MG INJ IV SCH ×2 (09:50→21:21)
[2016-08-11] MEDS: FOLIC ACID 1 MG TAB PO SCH (09:50)
[2016-08-11] MEDS: TRIMETHOPRIM/SULFAMETHOX (DS) TAB PO SCH ×2 (09:51→21:20)
[2016-08-11] MEDS: AMLODIPINE 10 MG TAB PO SCH (09:51)
[2016-08-11] MEDS: DIVALPROEX (EC) 500 MG TAB PO SCH ×3 (09:51→21:20)
[2016-08-11] MEDS: PSYLLIUM (SUGAR FREE) PACKET PO SCH ×2 (09:51→21:21)
[2016-08-11] MEDS: ROPINIROLE 1 MG TAB PO SCH ×2 (09:51→21:21)
[2016-08-11] MEDS: MUPIROCIN 2% 22 GM OINT TOP SCH ×2 (09:52→21:21)
[2016-08-11] MEDS: QUETIAPINE 25 MG TAB PO SCH ×3 (09:58→21:21)
[2016-08-11] MEDS: ENOXAPARIN 30 MG/0.3 ML SYG SC SCH (10:01)
--- NOTE | 2016-08-11 15:58 | CONS ---
Date/Time of Note Date/Time of Note DATE: 08/11/16 TIME: 15:57 Assessment/Plan Assessment/Plan Chief Complaint/Hosp Course SUBJECTIVE: Awake, looks comfortable, no fevers. MICROBIOLOGY: Nares swab and sputum cx came back positive for MRSA. ANTIMICROBIALS: day# 10 Bactrim, s/p Vanco/Cefepime PHYSICAL EXAMINATION: GENERAL: This is a fragile, chronically ill-appearing, elderly man who is awake , in no distress. HEENT: Head atraumatic, normocephalic. Sclerae anicteric. Buccal mucosa dry. NECK: Supple. CHEST: Rise symmetrical. Breath sounds diminished to bases, scattered respiratory wheezes. HEART: S1, S2. ABDOMEN: Soft, bowel sounds present. EXTREMITIES: Without cyanosis or edema. ASSESSMENT: 1. Resolving sepsis with fevers, leukocytosis, and tachycardia on admission. 2. Healthcare-associated pneumonia. 3. Chronic obstructive pulmonary disease exacerbation. 4. History of schizophrenia and GI bleeding. 5. Methicillin-resistant Staphylococcus aureus nares colonization. PLAN: The patient remains unchanged. Continue present care, abx, steroids taper DW staff Problems: Consultation Date/Type/Reason Admit Date/Time August 01, 2016 at 22:43 Type of Consultation: ID Exam/Review of Systems Vital Signs Vitals Vital Signs Date Time Temp Pulse Resp B/P Pulse Ox O2 Delivery O2 Flow Rate FiO2 08/11/16 14:52 77 22 94 Nasal Cannula 3.0 08/11/16 08:48 97.4 116/55 Intake and Output 08/10/16 08/10/16 08/11/16 15:00 23:00 07:00 Intake Total 840 ml 620 ml Output Total 300 ml 500 ml Balance 540 ml 120 ml Results Result Diagram: 08/11/16 0500 08/11/16 0500 Results 24 hrs Laboratory Tests Test 08/11/16 05:00 White Blood Count 13.0 #H Red Blood Count 3.01 L Hemoglobin 8.4 L Hematocrit 27.9 L Mean Corpuscular Volume 92.7 Mean Corpuscular Hemoglobin 27.9 L Mean Corpuscular Hemoglobin Concent 30.1 L Red Cell Distribution Width 16.4 H Platelet Count 400 # Mean Platelet Volume 9.5 Neutrophils % 86.6 H Lymphocytes % 5.8 L Monocytes % 3.0 Eosinophils % 0.0 Basophils % 0.2 Nucleated Red Blood Cells % 0.0 Neutrophils # 11.3 H Lymphocytes # 0.8 Monocytes # 0.4 Eosinophils # 0.0 Basophils # 0.0 Nucleated Red Blood Cells # 0.0 Sodium Level 140 Potassium Level 4.7 Chloride Level 102 Carbon Dioxide Level 34 H Anion Gap 9 Blood Urea Nitrogen 26 H Creatinine 1.00 Glucose Level 122 Calcium Level 8.5 Medications Medications Current Medications Ondansetron HCl (Zofran Inj) 4 mg Q6H PRN IV NAUSEA AND/OR VOMITING; Start at 23:00 Morphine Sulfate (morphine) 2 mg Q4H PRN IV PAIN LEVEL 7-10; Start 08/01/16 at 23:00 Enoxaparin Sodium (Lovenox) 30 mg DAILY SC Last administered on 08/11/16 10:01 ; Admin Dose 30 MG; Start 08/02/16 at 09:00 Pantoprazole (Protonix Tab) 40 mg DAILY@06 PO Last administered on 08/11/16 06: 32; Admin Dose 40 MG; Start 08/03/16 at 06:00 Divalproex Sodium (Depakote) 500 mg TID PO Last administered on 08/11/16 13:44 ; Admin Dose 500 MG; Start 08/02/16 at 21:00 Docusate Sodium (Colace) 100 mg DAILY PO Last administered on 08/11/16 09:50; Admin Dose 100 MG; Start 08/03/16 at 09:00 Folic Acid (Folic Acid) 1 mg DAILY PO Last administered on 08/11/16 09:50; Admin Dose 1 MG; Start 08/03/16 at 09:00 Lorazepam (Ativan) 1 mg Q12H PRN PO ANXIETY; Start 08/02/16 at 15:00 Magnesium Hydroxide (Milk Of Mag) 30 ml DAILY PRN PO CONSTIPATION; Start at 15:00 Quetiapine Fumarate (Seroquel) 50 mg TID PO Last administered on 08/11/16 13:44 ; Admin Dose 50 MG; Start 08/02/16 at 21:00 Ropinirole HCl (Requip) 1 mg BID PO Last administered on 08/11/16 09:51; Admin Dose 1 MG; Start 08/02/16 at 21:00 Senna (Senokot) 1 tab QHS PO Last administered on 08/10/16 20:43; Admin Dose 1 TAB; Start 08/02/16 at 21:00 Mirtazapine (Remeron) 15 mg QHS PO Last administered on 08/10/16 20:43; Admin Dose 15 MG; Start 08/02/16 at 21:00 Psyllium Hydrophilic Mucilloid (Metamucil (Sugar Free)) 1 pkt BID PO Last administered on 08/11/16 09:51; Admin Dose 1 PKT; Start 08/02/16 at 21:00 Zolpidem Tartrate (Ambien) 5 mg QHS PRN PO INSOMNIA; Start 08/02/16 at 15:00 Acetaminophen (Tylenol Tab) 650 mg Q6H PRN PO PAIN AND OR ELEVATED TEMP; Start 08/02/16 at 21:00 Mupirocin (Bactroban) 1 applic BID TOP Last administered on 08/11/16 09:52; Admin Dose 1 APPLIC; Start 08/03/16 at 21:00 Methylprednisolone Sodium Succinate (Solu-Medrol) 40 mg Q12 IV Last administered on 08/11/16 09:50; Admin Dose 40 MG; Start 08/05/16 at 09:00 Hydralazine HCl (Apresoline) 25 mg Q6H PRN PO ELEVATED BLOOD PRESSURE; Start at 20:30 Amlodipine Besylate (Norvasc) 10 mg DAILY PO Last administered on 08/11/16 09: 51; Admin Dose 10 MG; Start 08/07/16 at 20:30 Trimethoprim/ Sulfamethoxazole (Bactrim (Ds)) 1 tab BID PO Last administered on 08/11/16 09:51; Admin Dose 1 TAB; Start 08/09/16 at 21:00 ARCHIE BORJA NP Aug 11, 2016 15:58
--- NOTE | 2016-08-11 16:38 | PN ---
Date/Time of Note Date/Time of Note DATE: 08/11/16 TIME: 16:37 Assessment/Plan VTE Prophylaxis VTE Prophylaxis Intervention: other Lines/Catheters [facility] Saline Lock Urinary Cath still in place: No Assessment/Plan Assessment/Plan - Severe sepsis secondary to pneumonia. Dr. Aceves is following in infection disease consultation. Continue antibiotics per ID. - HCAP. - Chronic obstructive pulmonary disease with possible exacerbation. Continue breathing treatments. - Hypothyroidism, continue Synthroid. - Gastroesophageal reflux disease. Continue Protonix. - Schizophrenia. Continue Seroquel. - Possible Parkinson's disease. Continue Requip. Further recommendations based on clinical course. Plan of care discussed with Dr. Lorenzo. Exam/Review of Systems Vital Signs Vitals Vital Signs Date Time Temp Pulse Resp B/P Pulse Ox O2 Delivery O2 Flow Rate FiO2 08/11/16 14:52 77 22 94 Nasal Cannula 3.0 08/11/16 08:48 97.4 116/55 Intake and Output 08/10/16 08/10/16 08/11/16 15:00 23:00 07:00 Intake Total 840 ml 620 ml Output Total 300 ml 500 ml Balance 540 ml 120 ml Exam Constitutional: alert Respiratory: clear to auscultation, normal air movement Gastrointestinal: non-tender, soft Musculoskeletal: nl extremities to inspection Extremities: normal pulses Results Result Diagram: 08/11/16 0500 08/11/16 0500 Results 24 hrs Laboratory Tests Test 08/11/16 05:00 White Blood Count 13.0 #H Red Blood Count 3.01 L Hemoglobin 8.4 L Hematocrit 27.9 L Mean Corpuscular Volume 92.7 Mean Corpuscular Hemoglobin 27.9 L Mean Corpuscular Hemoglobin Concent 30.1 L Red Cell Distribution Width 16.4 H Platelet Count 400 # Mean Platelet Volume 9.5 Neutrophils % 86.6 H Lymphocytes % 5.8 L Monocytes % 3.0 Eosinophils % 0.0 Basophils % 0.2 Nucleated Red Blood Cells % 0.0 Neutrophils # 11.3 H Lymphocytes # 0.8 Monocytes # 0.4 Eosinophils # 0.0 Basophils # 0.0 Nucleated Red Blood Cells # 0.0 Sodium Level 140 Potassium Level 4.7 Chloride Level 102 Carbon Dioxide Level 34 H Anion Gap 9 Blood Urea Nitrogen 26 H Creatinine 1.00 Glucose Level 122 Calcium Level 8.5 Medications Medications Current Medications Ondansetron HCl (Zofran Inj) 4 mg Q6H PRN IV NAUSEA AND/OR VOMITING; Start at 23:00 Morphine Sulfate (morphine) 2 mg Q4H PRN IV PAIN LEVEL 7-10; Start 08/01/16 at 23:00 Enoxaparin Sodium (Lovenox) 30 mg DAILY SC Last administered on 08/11/16 10:01 ; Admin Dose 30 MG; Start 08/02/16 at 09:00 Pantoprazole (Protonix Tab) 40 mg DAILY@06 PO Last administered on 08/11/16 06: 32; Admin Dose 40 MG; Start 08/03/16 at 06:00 Divalproex Sodium (Depakote) 500 mg TID PO Last administered on 08/11/16 13:44 ; Admin Dose 500 MG; Start 08/02/16 at 21:00 Docusate Sodium (Colace) 100 mg DAILY PO Last administered on 08/11/16 09:50; Admin Dose 100 MG; Start 08/03/16 at 09:00 Folic Acid (Folic Acid) 1 mg DAILY PO Last administered on 08/11/16 09:50; Admin Dose 1 MG; Start 08/03/16 at 09:00 Lorazepam (Ativan) 1 mg Q12H PRN PO ANXIETY; Start 08/02/16 at 15:00 Magnesium Hydroxide (Milk Of Mag) 30 ml DAILY PRN PO CONSTIPATION; Start at 15:00 Quetiapine Fumarate (Seroquel) 50 mg TID PO Last administered on 08/11/16 13:44 ; Admin Dose 50 MG; Start 08/02/16 at 21:00 Ropinirole HCl (Requip) 1 mg BID PO Last administered on 08/11/16 09:51; Admin Dose 1 MG; Start 08/02/16 at 21:00 Senna (Senokot) 1 tab QHS PO Last administered on 08/10/16 20:43; Admin Dose 1 TAB; Start 08/02/16 at 21:00 Mirtazapine (Remeron) 15 mg QHS PO Last administered on 08/10/16 20:43; Admin Dose 15 MG; Start 08/02/16 at 21:00 Psyllium Hydrophilic Mucilloid (Metamucil (Sugar Free)) 1 pkt BID PO Last administered on 08/11/16 09:51; Admin Dose 1 PKT; Start 08/02/16 at 21:00 Zolpidem Tartrate (Ambien) 5 mg QHS PRN PO INSOMNIA; Start 08/02/16 at 15:00 Acetaminophen (Tylenol Tab) 650 mg Q6H PRN PO PAIN AND OR ELEVATED TEMP; Start 08/02/16 at 21:00 Mupirocin (Bactroban) 1 applic BID TOP Last administered on 08/11/16 09:52; Admin Dose 1 APPLIC; Start 08/03/16 at 21:00 Methylprednisolone Sodium Succinate (Solu-Medrol) 40 mg Q12 IV Last administered on 08/11/16 09:50; Admin Dose 40 MG; Start 08/05/16 at 09:00 Hydralazine HCl (Apresoline) 25 mg Q6H PRN PO ELEVATED BLOOD PRESSURE; Start at 20:30 Amlodipine Besylate (Norvasc) 10 mg DAILY PO Last administered on 08/11/16 09: 51; Admin Dose 10 MG; Start 08/07/16 at 20:30 Trimethoprim/ Sulfamethoxazole (Bactrim (Ds)) 1 tab BID PO Last administered on 08/11/16 09:51; Admin Dose 1 TAB; Start 08/09/16 at 21:00 ALEJANDRINA KHAN Aug 11, 2016 16:38
[2016-08-11 20:26] VITALS: BP 100/53; RESP 20
[2016-08-11] MEDS: MIRTAZAPINE 15 MG TAB PO SCH (21:20)
[2016-08-11] MEDS: SENNA TAB PO SCH (21:20)
[2016-08-12] MEDS: ALBUTEROL/IPRATROPIUM (NEB) 3 ML AMP HHN SCH ×4 (01:23→20:16)
[2016-08-12] MEDS: PANTOPRAZOLE (EC) 40 MG TAB PO SCH (05:30)
[2016-08-12] MEDS: LEVOTHYROXINE 25 MCG TAB PO SCH (06:08)
[2016-08-12 06:09] LABS: ADD SCAN DIFF NO
[2016-08-12 06:16] LABS: ABNORMAL IP MESSAGE 1; BASOPHILS % 0.2 % (0.0-2.0); HEMATOCRIT 31.3 % (42.0-52.0); HEMOGLOBIN 9.4 g/dl (14.0-18.0); LYMPHOCYTES # 0.6 10^3/ul (0.8-2.9); LYMPHOCYTES % 5.7 % (15.0-51.0); MEAN CORPUSCULAR VOLUME 93.2 fl (82.0-101.0); MEAN PLATELET VOLUME 9.7 fl (7.4-10.4); MONOCYTE # 0.2 10^3/ul (0.3-0.9); MONOCYTES % 2.2 % (0.0-11.0); NEUTROPHIL # 8.5 10^3/ul (1.6-7.5); NEUTROPHILS % 85.6 % (39.0-77.0); PLATELET COUNT 393 10^3/UL (140-415); RED BLOOD COUNT 3.36 10^6/ul (4.70-6.10); RED CELL DISTRIBUTION WIDTH 16.6 % (11.5-14.5); WHITE BLOOD COUNT 9.9 10^3/ul (4.8-10.8)
[2016-08-12 06:49] LABS: CREATININE 1.1 mg/dl (0.61-1.24); POTASSIUM 4.9 mmol/L (3.5-5.1)
[2016-08-12 07:52] VITALS: BP 109/55; RESP 22
[2016-08-12] MEDS: PSYLLIUM (SUGAR FREE) PACKET PO SCH ×2 (08:36→20:25)
[2016-08-12] MEDS: METHYLPREDNISOLONE 40 MG INJ IV SCH ×2 (08:36→20:25)
[2016-08-12] MEDS: FOLIC ACID 1 MG TAB PO SCH (08:37)
[2016-08-12] MEDS: DOCUSATE SODIUM 100 MG CAP PO SCH (08:37)
[2016-08-12] MEDS: TRIMETHOPRIM/SULFAMETHOX (DS) TAB PO SCH ×2 (08:37→20:24)
[2016-08-12] MEDS: MUPIROCIN 2% 22 GM OINT TOP SCH ×2 (08:37→20:29)
[2016-08-12] MEDS: DIVALPROEX (EC) 500 MG TAB PO SCH ×3 (08:37→20:24)
[2016-08-12] MEDS: AMLODIPINE 10 MG TAB PO SCH (08:39)
[2016-08-12] MEDS: QUETIAPINE 25 MG TAB PO SCH ×3 (08:40→20:25)
[2016-08-12] MEDS: ENOXAPARIN 30 MG/0.3 ML SYG SC SCH (08:42)
[2016-08-12] MEDS: ROPINIROLE 1 MG TAB PO SCH ×2 (08:47→20:24)
--- NOTE | 2016-08-12 13:38 | CONS ---
Date/Time of Note Date/Time of Note DATE: 08/12/16 TIME: 13:37 Assessment/Plan Assessment/Plan Chief Complaint/Hosp Course SUBJECTIVE: Awake, denies pain, looks comfortable, no fevers. MICROBIOLOGY: Nares swab and sputum cx came back positive for MRSA. ANTIMICROBIALS: day# 11 Bactrim, s/p Vanco/Cefepime PHYSICAL EXAMINATION: GENERAL: This is a fragile, chronically ill-appearing, elderly man who is awake , in no distress. HEENT: Head atraumatic, normocephalic. Sclerae anicteric. Buccal mucosa dry. NECK: Supple. CHEST: Rise symmetrical. Breath sounds diminished to bases, scattered respiratory wheezes. HEART: S1, S2. ABDOMEN: Soft, bowel sounds present. EXTREMITIES: Without cyanosis or edema. ASSESSMENT: 1. Resolving sepsis with fevers, leukocytosis, and tachycardia on admission. 2. Healthcare-associated pneumonia. 3. Chronic obstructive pulmonary disease exacerbation. 4. History of schizophrenia and GI bleeding. 5. Methicillin-resistant Staphylococcus aureus nares colonization. PLAN: Remains stable, completing abx. DW staff Problems: Consultation Date/Type/Reason Admit Date/Time August 01, 2016 at 22:43 Type of Consultation: ID Exam/Review of Systems Vital Signs Vitals Vital Signs Date Time Temp Pulse Resp B/P Pulse Ox O2 Delivery O2 Flow Rate FiO2 08/12/16 13:35 72 18 94 Nasal Cannula 3.0 08/12/16 07:52 97.6 109/55 Intake and Output 08/11/16 08/11/16 08/12/16 15:00 23:00 07:00 Intake Total 960 ml 300 ml Output Total 1050 ml 700 ml Balance -90 ml -400 ml Results Result Diagram: 08/12/16 0529 08/12/16 0529 Results 24 hrs Laboratory Tests Test 08/12/16 05:29 White Blood Count 9.9 # Red Blood Count 3.36 L Hemoglobin 9.4 L Hematocrit 31.3 L Mean Corpuscular Volume 93.2 Mean Corpuscular Hemoglobin 28.0 L Mean Corpuscular Hemoglobin Concent 30.0 L Red Cell Distribution Width 16.6 H Platelet Count 393 Mean Platelet Volume 9.7 Neutrophils % 85.6 H Lymphocytes % 5.7 L Monocytes % 2.2 Eosinophils % 0.0 Basophils % 0.2 Nucleated Red Blood Cells % 0.0 Neutrophils # 8.5 H Lymphocytes # 0.6 L Monocytes # 0.2 L Eosinophils # 0.0 Basophils # 0.0 Nucleated Red Blood Cells # 0.0 Sodium Level 142 Potassium Level 4.9 Chloride Level 102 Carbon Dioxide Level 35 H Anion Gap 10 Blood Urea Nitrogen 28 H Creatinine 1.10 Glucose Level 129 Calcium Level 9.0 Medications Medications Current Medications Ondansetron HCl (Zofran Inj) 4 mg Q6H PRN IV NAUSEA AND/OR VOMITING; Start at 23:00 Morphine Sulfate (morphine) 2 mg Q4H PRN IV PAIN LEVEL 7-10; Start 08/01/16 at 23:00 Enoxaparin Sodium (Lovenox) 30 mg DAILY SC Last administered on 08/12/16 08:42 ; Admin Dose 30 MG; Start 08/02/16 at 09:00 Pantoprazole (Protonix Tab) 40 mg DAILY@06 PO Last administered on 08/12/16 05: 30; Admin Dose 40 MG; Start 08/03/16 at 06:00 Divalproex Sodium (Depakote) 500 mg TID PO Last administered on 08/12/16 08:37 ; Admin Dose 500 MG; Start 08/02/16 at 21:00 Docusate Sodium (Colace) 100 mg DAILY PO Last administered on 08/12/16 08:37; Admin Dose 100 MG; Start 08/03/16 at 09:00 Folic Acid (Folic Acid) 1 mg DAILY PO Last administered on 08/12/16 08:37; Admin Dose 1 MG; Start 08/03/16 at 09:00 Lorazepam (Ativan) 1 mg Q12H PRN PO ANXIETY; Start 08/02/16 at 15:00 Magnesium Hydroxide (Milk Of Mag) 30 ml DAILY PRN PO CONSTIPATION; Start at 15:00 Quetiapine Fumarate (Seroquel) 50 mg TID PO Last administered on 08/12/16 08:40 ; Admin Dose 50 MG; Start 08/02/16 at 21:00 Ropinirole HCl (Requip) 1 mg BID PO Last administered on 08/12/16 08:47; Admin Dose 1 MG; Start 08/02/16 at 21:00 Senna (Senokot) 1 tab QHS PO Last administered on 08/11/16 21:20; Admin Dose 1 TAB; Start 08/02/16 at 21:00 Mirtazapine (Remeron) 15 mg QHS PO Last administered on 08/11/16 21:20; Admin Dose 15 MG; Start 08/02/16 at 21:00 Psyllium Hydrophilic Mucilloid (Metamucil (Sugar Free)) 1 pkt BID PO Last administered on 08/12/16 08:36; Admin Dose 1 PKT; Start 08/02/16 at 21:00 Zolpidem Tartrate (Ambien) 5 mg QHS PRN PO INSOMNIA; Start 08/02/16 at 15:00 Acetaminophen (Tylenol Tab) 650 mg Q6H PRN PO PAIN AND OR ELEVATED TEMP; Start 08/02/16 at 21:00 Mupirocin (Bactroban) 1 applic BID TOP Last administered on 08/12/16 08:37; Admin Dose 1 APPLIC; Start 08/03/16 at 21:00 Methylprednisolone Sodium Succinate (Solu-Medrol) 40 mg Q12 IV Last administered on 08/12/16 08:36; Admin Dose 40 MG; Start 08/05/16 at 09:00 Hydralazine HCl (Apresoline) 25 mg Q6H PRN PO ELEVATED BLOOD PRESSURE; Start at 20:30 Amlodipine Besylate (Norvasc) 10 mg DAILY PO Last administered on 08/12/16 08: 39; Admin Dose 10 MG; Start 08/07/16 at 20:30 Trimethoprim/ Sulfamethoxazole (Bactrim (Ds)) 1 tab BID PO Last administered on 08/12/16 08:37; Admin Dose 1 TAB; Start 08/09/16 at 21:00 ARCHIE BORJA NP Aug 12, 2016 13:38
--- NOTE | 2016-08-12 17:14 | PN ---
Date/Time of Note Date/Time of Note DATE: 08/12/16 TIME: 17:13 Assessment/Plan VTE Prophylaxis VTE Prophylaxis Intervention: SCD's Lines/Catheters [facility] Saline Lock Urinary Cath still in place: No Assessment/Plan Chief Complaint/Hosp Course Patient looks comfortable, man's hemodynamically stable and afebrile. Anticipate discharge to [facility] facility when bed is available. ASSESSMENT AND PLAN: - Severe sepsis secondary to pneumonia, resolved. Dr. Aceves is following in infection disease consultation. - HCAP. Continue Bactrim. - Chronic obstructive pulmonary disease with possible exacerbation. Continue breathing treatments. - Hypothyroidism, continue Synthroid. - Gastroesophageal reflux disease. Continue Protonix. - Schizophrenia. Continue Seroquel. - Possible Parkinson's disease. Continue Requip. Further recommendations based on clinical course. Plan of care discussed with Dr. Lorenzo. Problems: Exam/Review of Systems Vital Signs Vitals Vital Signs Date Time Temp Pulse Resp B/P Pulse Ox O2 Delivery O2 Flow Rate FiO2 08/12/16 13:35 72 18 94 Nasal Cannula 3.0 08/12/16 07:52 97.6 109/55 Intake and Output 08/11/16 08/11/16 08/12/16 15:00 23:00 07:00 Intake Total 960 ml 300 ml Output Total 1050 ml 700 ml Balance -90 ml -400 ml Exam Constitutional: alert Head: normocephalic Neck: supple Respiratory: diminished breath sounds Cardiovascular: nl pulses Gastrointestinal: non-tender, soft Extremities: normal pulses Results Result Diagram: 08/12/16 0529 08/12/16 0529 Results 24 hrs Laboratory Tests Test 08/12/16 05:29 White Blood Count 9.9 # Red Blood Count 3.36 L Hemoglobin 9.4 L Hematocrit 31.3 L Mean Corpuscular Volume 93.2 Mean Corpuscular Hemoglobin 28.0 L Mean Corpuscular Hemoglobin Concent 30.0 L Red Cell Distribution Width 16.6 H Platelet Count 393 Mean Platelet Volume 9.7 Neutrophils % 85.6 H Lymphocytes % 5.7 L Monocytes % 2.2 Eosinophils % 0.0 Basophils % 0.2 Nucleated Red Blood Cells % 0.0 Neutrophils # 8.5 H Lymphocytes # 0.6 L Monocytes # 0.2 L Eosinophils # 0.0 Basophils # 0.0 Nucleated Red Blood Cells # 0.0 Sodium Level 142 Potassium Level 4.9 Chloride Level 102 Carbon Dioxide Level 35 H Anion Gap 10 Blood Urea Nitrogen 28 H Creatinine 1.10 Glucose Level 129 Calcium Level 9.0 Medications Medications Current Medications Ondansetron HCl (Zofran Inj) 4 mg Q6H PRN IV NAUSEA AND/OR VOMITING; Start at 23:00 Morphine Sulfate (morphine) 2 mg Q4H PRN IV PAIN LEVEL 7-10; Start 08/01/16 at 23:00 Enoxaparin Sodium (Lovenox) 30 mg DAILY SC Last administered on 08/12/16 08:42 ; Admin Dose 30 MG; Start 08/02/16 at 09:00 Pantoprazole (Protonix Tab) 40 mg DAILY@06 PO Last administered on 08/12/16 05: 30; Admin Dose 40 MG; Start 08/03/16 at 06:00 Divalproex Sodium (Depakote) 500 mg TID PO Last administered on 08/12/16 13:54 ; Admin Dose 500 MG; Start 08/02/16 at 21:00 Docusate Sodium (Colace) 100 mg DAILY PO Last administered on 08/12/16 08:37; Admin Dose 100 MG; Start 08/03/16 at 09:00 Folic Acid (Folic Acid) 1 mg DAILY PO Last administered on 08/12/16 08:37; Admin Dose 1 MG; Start 08/03/16 at 09:00 Lorazepam (Ativan) 1 mg Q12H PRN PO ANXIETY; Start 08/02/16 at 15:00 Magnesium Hydroxide (Milk Of Mag) 30 ml DAILY PRN PO CONSTIPATION; Start at 15:00 Quetiapine Fumarate (Seroquel) 50 mg TID PO Last administered on 08/12/16 13:54 ; Admin Dose 50 MG; Start 08/02/16 at 21:00 Ropinirole HCl (Requip) 1 mg BID PO Last administered on 08/12/16 08:47; Admin Dose 1 MG; Start 08/02/16 at 21:00 Senna (Senokot) 1 tab QHS PO Last administered on 08/11/16 21:20; Admin Dose 1 TAB; Start 08/02/16 at 21:00 Mirtazapine (Remeron) 15 mg QHS PO Last administered on 08/11/16 21:20; Admin Dose 15 MG; Start 08/02/16 at 21:00 Psyllium Hydrophilic Mucilloid (Metamucil (Sugar Free)) 1 pkt BID PO Last administered on 08/12/16 08:36; Admin Dose 1 PKT; Start 08/02/16 at 21:00 Zolpidem Tartrate (Ambien) 5 mg QHS PRN PO INSOMNIA; Start 08/02/16 at 15:00 Acetaminophen (Tylenol Tab) 650 mg Q6H PRN PO PAIN AND OR ELEVATED TEMP; Start 08/02/16 at 21:00 Mupirocin (Bactroban) 1 applic BID TOP Last administered on 08/12/16 08:37; Admin Dose 1 APPLIC; Start 08/03/16 at 21:00 Methylprednisolone Sodium Succinate (Solu-Medrol) 40 mg Q12 IV Last administered on 08/12/16 08:36; Admin Dose 40 MG; Start 08/05/16 at 09:00 Hydralazine HCl (Apresoline) 25 mg Q6H PRN PO ELEVATED BLOOD PRESSURE; Start at 20:30 Amlodipine Besylate (Norvasc) 10 mg DAILY PO Last administered on 08/12/16 08: 39; Admin Dose 10 MG; Start 08/07/16 at 20:30 Trimethoprim/ Sulfamethoxazole (Bactrim (Ds)) 1 tab BID PO Last administered on 08/12/16 08:37; Admin Dose 1 TAB; Start 08/09/16 at 21:00 SORAIDA KING Aug 12, 2016 17:14
[2016-08-12 19:17] VITALS: BP 107/53; RESP 20
[2016-08-12] MEDS: SENNA TAB PO SCH (20:24)
[2016-08-12] MEDS: MIRTAZAPINE 15 MG TAB PO SCH (20:24)
[2016-08-13] MEDS: ALBUTEROL/IPRATROPIUM (NEB) 3 ML AMP HHN SCH ×4 (01:11→20:56)
[2016-08-13] MEDS: PANTOPRAZOLE (EC) 40 MG TAB PO SCH (05:25)
[2016-08-13] MEDS: LEVOTHYROXINE 25 MCG TAB PO SCH (06:23)
[2016-08-13 08:00] VITALS: BP 124/59; RESP 18
[2016-08-13] MEDS: QUETIAPINE 25 MG TAB PO SCH ×3 (09:05→20:17)
[2016-08-13] MEDS: TRIMETHOPRIM/SULFAMETHOX (DS) TAB PO SCH ×2 (09:05→20:20)
[2016-08-13] MEDS: FOLIC ACID 1 MG TAB PO SCH (09:05)
[2016-08-13] MEDS: DOCUSATE SODIUM 100 MG CAP PO SCH (09:05)
[2016-08-13] MEDS: DIVALPROEX (EC) 500 MG TAB PO SCH ×3 (09:05→20:17)
[2016-08-13] MEDS: METHYLPREDNISOLONE 40 MG INJ IV SCH ×2 (09:05→20:16)
[2016-08-13] MEDS: MUPIROCIN 2% 22 GM OINT TOP SCH ×2 (09:06→20:20)
[2016-08-13] MEDS: PSYLLIUM (SUGAR FREE) PACKET PO SCH ×2 (09:06→20:18)
[2016-08-13] MEDS: AMLODIPINE 10 MG TAB PO SCH (09:06)
[2016-08-13] MEDS: ROPINIROLE 1 MG TAB PO SCH ×2 (09:06→20:16)
[2016-08-13] MEDS: ENOXAPARIN 30 MG/0.3 ML SYG SC SCH (09:09)
--- NOTE | 2016-08-13 11:33 | PN ---
Date/Time of Note Date/Time of Note DATE: 08/13/16 TIME: 11:32 Assessment/Plan VTE Prophylaxis VTE Prophylaxis Intervention: other Lines/Catheters IV C[facility]ter Type (from [facility]): Saline Lock Urinary Cath still in place: No Assessment/Plan Chief Complaint/Hosp Course - Severe sepsis secondary to pneumonia, resolved. Dr. Aceves is following in infection disease consultation. - HCAP. Continue Bactrim. - Chronic obstructive pulmonary disease with possible exacerbation. Continue breathing treatments. - Hypothyroidism, continue Synthroid. - Gastroesophageal reflux disease. Continue Protonix. - Schizophrenia. Continue Seroquel. - Possible Parkinson's disease. Continue Requip. Problems: Subjective 24 Hr Interval Summary Free Text/Dictation Patient has no complaints Exam/Review of Systems Vital Signs Vitals Vital Signs Date Time Temp Pulse Resp B/P Pulse Ox O2 Delivery O2 Flow Rate FiO2 08/13/16 09:26 72 20 93 Nasal Cannula 3.0 08/13/16 08:00 97.7 124/59 Intake and Output 08/12/16 08/12/16 08/13/16 15:00 23:00 07:00 Intake Total 800 ml 580 ml Output Total 780 ml 820 ml Balance 20 ml -240 ml Exam Constitutional: well developed Head: atraumatic, normocephalic Neck: supple Respiratory: diminished breath sounds Cardiovascular: regular rate and rhythm Gastrointestinal: non-tender, soft Extremities: normal pulses Results Result Diagram: 08/12/1652808/12/16528 Medications Medications Current Medications Ondansetron HCl (Zofran Inj) 4 mg Q6H PRN IV NAUSEA AND/OR VOMITING; Start at 23:00 Morphine Sulfate (morphine) 2 mg Q4H PRN IV PAIN LEVEL 7-10; Start 08/01/16 at 23:00 Enoxaparin Sodium (Lovenox) 30 mg DAILY SC Last administered on 08/13/16 09:09 ; Admin Dose 30 MG; Start 08/02/16 at 09:00 Pantoprazole (Protonix Tab) 40 mg DAILY@06 PO Last administered on 08/13/16 05 :25; Admin Dose 40 MG; Start 08/03/16 at 06:00 Divalproex Sodium (Depakote) 500 mg TID PO Last administered on 08/13/16 09:05 ; Admin Dose 500 MG; Start 08/02/16 at 21:00 Docusate Sodium (Colace) 100 mg DAILY PO Last administered on 08/13/16 09:05; Admin Dose 100 MG; Start 08/03/16 at 09:00 Folic Acid (Folic Acid) 1 mg DAILY PO Last administered on 08/13/16 09:05; Admin Dose 1 MG; Start 08/03/16 at 09:00 Lorazepam (Ativan) 1 mg Q12H PRN PO ANXIETY; Start 08/02/16 at 15:00 Magnesium Hydroxide (Milk Of Mag) 30 ml DAILY PRN PO CONSTIPATION; Start at 15:00 Quetiapine Fumarate (Seroquel) 50 mg TID PO Last administered on 08/13/16 09: 05; Admin Dose 50 MG; Start 08/02/16 at 21:00 Ropinirole HCl (Requip) 1 mg BID PO Last administered on 08/13/16 09:06; Admin Dose 1 MG; Start 08/02/16 at 21:00 Senna (Senokot) 1 tab QHS PO Last administered on 08/12/16 20:24; Admin Dose 1 TAB; Start 08/02/16 at 21:00 Mirtazapine (Remeron) 15 mg QHS PO Last administered on 08/12/16 20:24; Admin Dose 15 MG; Start 08/02/16 at 21:00 Psyllium Hydrophilic Mucilloid (Metamucil (Sugar Free)) 1 pkt BID PO Last administered on 08/13/16 09:06; Admin Dose 1 PKT; Start 08/02/16 at 21:00 Zolpidem Tartrate (Ambien) 5 mg QHS PRN PO INSOMNIA; Start 08/02/16 at 15:00 Acetaminophen (Tylenol Tab) 650 mg Q6H PRN PO PAIN AND OR ELEVATED TEMP; Start 08/02/16 at 21:00 Mupirocin (Bactroban) 1 applic BID TOP Last administered on 08/13/16 09:06; Admin Dose 1 APPLIC; Start 08/03/16 at 21:00 Methylprednisolone Sodium Succinate (Solu-Medrol) 40 mg Q12 IV Last administered on 08/13/16 09:05; Admin Dose 40 MG; Start 08/05/16 at 09:00 Hydralazine HCl (Apresoline) 25 mg Q6H PRN PO ELEVATED BLOOD PRESSURE; Start at 20:30 Amlodipine Besylate (Norvasc) 10 mg DAILY PO Last administered on 08/13/16 09: 06; Admin Dose 10 MG; Start 08/07/16 at 20:30 Trimethoprim/ Sulfamethoxazole (Bactrim (Ds)) 1 tab BID PO Last administered on 08/13/16 09:05; Admin Dose 1 TAB; Start 08/09/16 at 21:00 TERRA DUNCAN Aug 13, 2016 11:33
--- NOTE | 2016-08-13 18:48 | CONS ---
Date/Time of Note Date/Time of Note DATE: 08/13/16 TIME: 18:47 Assessment/Plan Assessment/Plan Chief Complaint/Hosp Course SUBJECTIVE: No acute events, looks comfortable, no fevers. MICROBIOLOGY: Nares swab and sputum cx came back positive for MRSA. ANTIMICROBIALS: day# 12 Bactrim, s/p Vanco/Cefepime PHYSICAL EXAMINATION: GENERAL: This is a fragile, chronically ill-appearing, elderly man who is awake , in no distress. HEENT: Head atraumatic, normocephalic. Sclerae anicteric. Buccal mucosa dry. NECK: Supple. CHEST: Rise symmetrical. Breath sounds diminished to bases, scattered respiratory wheezes. HEART: S1, S2. ABDOMEN: Soft, bowel sounds present. EXTREMITIES: Without cyanosis or edema. ASSESSMENT: 1. Resolving sepsis with fevers, leukocytosis, and tachycardia on admission. 2. Healthcare-associated pneumonia. 3. Chronic obstructive pulmonary disease exacerbation. 4. History of schizophrenia and GI bleeding. 5. Methicillin-resistant Staphylococcus aureus nares colonization. PLAN: Remains stable, completing abx, continue present care. DW staff Problems: Consultation Date/Type/Reason Admit Date/Time August 01, 2016 at 22:43 Type of Consultation: ID Exam/Review of Systems Vital Signs Vitals Vital Signs Date Time Temp Pulse Resp B/P Pulse Ox O2 Delivery O2 Flow Rate FiO2 08/13/16 13:05 3.0 08/13/16 13:04 66 20 94 08/13/16 09:26 Nasal Cannula 08/13/16 08:00 97.7 124/59 Intake and Output 08/12/16 08/12/16 08/13/16 15:00 23:00 07:00 Intake Total 800 ml 580 ml Output Total 780 ml 820 ml Balance 20 ml -240 ml Results Result Diagram: 08/12/16 0529 08/12/16 0529 Medications Medications Current Medications Ondansetron HCl (Zofran Inj) 4 mg Q6H PRN IV NAUSEA AND/OR VOMITING; Start at 23:00 Morphine Sulfate (morphine) 2 mg Q4H PRN IV PAIN LEVEL 7-10; Start 08/01/16 at 23:00 Enoxaparin Sodium (Lovenox) 30 mg DAILY SC Last administered on 08/13/16t 09:09 ; Admin Dose 30 MG; Start 08/02/16 at 09:00 Pantoprazole (Protonix Tab) 40 mg DAILY@06 PO Last administered on 08/13/16 05 :25; Admin Dose 40 MG; Start 08/03/16 at 06:00 Divalproex Sodium (Depakote) 500 mg TID PO Last administered on 08/13/16 14:02 ; Admin Dose 500 MG; Start 08/02/16 at 21:00 Docusate Sodium (Colace) 100 mg DAILY PO Last administered on 08/13/16 09:05; Admin Dose 100 MG; Start 08/03/16 at 09:00 Folic Acid (Folic Acid) 1 mg DAILY PO Last administered on 08/13/16 09:05; Admin Dose 1 MG; Start 08/03/16 at 09:00 Lorazepam (Ativan) 1 mg Q12H PRN PO ANXIETY; Start 08/02/16 at 15:00 Magnesium Hydroxide (Milk Of Mag) 30 ml DAILY PRN PO CONSTIPATION; Start at 15:00 Quetiapine Fumarate (Seroquel) 50 mg TID PO Last administered on 08/13/16 14: 03; Admin Dose 50 MG; Start 08/02/16 at 21:00 Ropinirole HCl (Requip) 1 mg BID PO Last administered on 08/13/16 09:06; Admin Dose 1 MG; Start 08/02/16 at 21:00 Senna (Senokot) 1 tab QHS PO Last administered on 08/12/16 20:24; Admin Dose 1 TAB; Start 08/02/16 at 21:00 Mirtazapine (Remeron) 15 mg QHS PO Last administered on 08/12/16 20:24; Admin Dose 15 MG; Start 08/02/16 at 21:00 Psyllium Hydrophilic Mucilloid (Metamucil (Sugar Free)) 1 pkt BID PO Last administered on 08/13/16 09:06; Admin Dose 1 PKT; Start 08/02/16 at 21:00 Zolpidem Tartrate (Ambien) 5 mg QHS PRN PO INSOMNIA; Start 08/02/16 at 15:00 Acetaminophen (Tylenol Tab) 650 mg Q6H PRN PO PAIN AND OR ELEVATED TEMP; Start 08/02/16 at 21:00 Mupirocin (Bactroban) 1 applic BID TOP Last administered on 08/13/16 09:06; Admin Dose 1 APPLIC; Start 08/03/16 at 21:00 Methylprednisolone Sodium Succinate (Solu-Medrol) 40 mg Q12 IV Last administered on 08/13/16 09:05; Admin Dose 40 MG; Start 08/05/16 at 09:00 Hydralazine HCl (Apresoline) 25 mg Q6H PRN PO ELEVATED BLOOD PRESSURE; Start at 20:30 Amlodipine Besylate (Norvasc) 10 mg DAILY PO Last administered on 08/13/16 09: 06; Admin Dose 10 MG; Start 08/07/16 at 20:30 Trimethoprim/ Sulfamethoxazole (Bactrim (Ds)) 1 tab BID PO Last administered on 08/13/16 09:05; Admin Dose 1 TAB; Start 08/09/16 at 21:00 ARCHIE BORJA NP Aug 13, 2016 18:48
[2016-08-13] MEDS: ACETAMINOPHEN 325 MG TAB PO PRN (20:17)
[2016-08-13] MEDS: SENNA TAB PO SCH (20:17)
[2016-08-13] MEDS: MIRTAZAPINE 15 MG TAB PO SCH (20:17)
[2016-08-13 20:23] VITALS: BP 108/52; RESP 18
[2016-08-14] MEDS: ALBUTEROL/IPRATROPIUM (NEB) 3 ML AMP HHN SCH ×4 (02:05→20:29)
[2016-08-14] MEDS: PANTOPRAZOLE (EC) 40 MG TAB PO SCH (05:32)
[2016-08-14] MEDS: LEVOTHYROXINE 25 MCG TAB PO SCH (05:32)
[2016-08-14 07:56] VITALS: BP 117/56; RESP 18
[2016-08-14] MEDS: QUETIAPINE 25 MG TAB PO SCH ×3 (08:52→20:57)
[2016-08-14] MEDS: METHYLPREDNISOLONE 40 MG INJ IV SCH ×2 (08:52→20:56)
[2016-08-14] MEDS: DOCUSATE SODIUM 100 MG CAP PO SCH (08:52)
[2016-08-14] MEDS: TRIMETHOPRIM/SULFAMETHOX (DS) TAB PO SCH ×2 (08:52→20:56)
[2016-08-14] MEDS: ROPINIROLE 1 MG TAB PO SCH ×2 (08:52→20:58)
[2016-08-14] MEDS: PSYLLIUM (SUGAR FREE) PACKET PO SCH ×2 (08:52→20:59)
[2016-08-14] MEDS: DIVALPROEX (EC) 500 MG TAB PO SCH ×3 (08:52→20:56)
[2016-08-14] MEDS: FOLIC ACID 1 MG TAB PO SCH (08:52)
[2016-08-14] MEDS: AMLODIPINE 10 MG TAB PO SCH (08:53)
[2016-08-14] MEDS: MUPIROCIN 2% 22 GM OINT TOP SCH ×2 (08:53→20:58)
[2016-08-14] MEDS: ENOXAPARIN 30 MG/0.3 ML SYG SC SCH (08:56)
--- NOTE | 2016-08-14 11:04 | PN ---
Date/Time of Note Date/Time of Note DATE: 08/14/16 TIME: 11:03 Assessment/Plan VTE Prophylaxis VTE Prophylaxis Intervention: other Lines/Catheters IV Catheter Type (from [facility]): [facility] Urinary Cath still in place: No Assessment/Plan Chief Complaint/Hosp Course - Severe sepsis secondary to pneumonia, resolved. Dr. Aceves is following in infection disease consultation. - HCAP. Continue Bactrim. - Chronic obstructive pulmonary disease with possible exacerbation. Continue breathing treatments. - Hypothyroidism, continue Synthroid. - Gastroesophageal reflux disease. Continue Protonix. - Schizophrenia. Continue Seroquel. - Possible Parkinson's disease. Continue Requip. Problems: Subjective 24 Hr Interval Summary Free Text/Dictation Patient has no complaints Exam/Review of Systems Vital Signs Vitals Vital Signs Date Time Temp Pulse Resp B/P Pulse Ox O2 Delivery O2 Flow Rate FiO2 08/14/16 08:40 72 26 96 Nasal Cannula 3.0 08/14/16 07:56 98.1 117/56 Intake and Output 08/13/16 08/13/16 08/14/16 15:00 23:00 07:00 Intake Total 1420 ml 500 ml Output Total 550 ml Balance 1420 ml -50 ml Exam Constitutional: well developed Head: atraumatic, normocephalic Neck: supple Respiratory: diminished breath sounds Cardiovascular: regular rate and rhythm Gastrointestinal: non-tender, soft Extremities: normal pulses Results Result Diagram: 08/12/1652808/12/16528 Medications Medications Current Medications Ondansetron HCl (Zofran Inj) 4 mg Q6H PRN IV NAUSEA AND/OR VOMITING; Start at 23:00 Morphine Sulfate (morphine) 2 mg Q4H PRN IV PAIN LEVEL 7-10; Start 08/01/16 at 23:00 Enoxaparin Sodium (Lovenox) 30 mg DAILY SC Last administered on 08/14/16 08:56 ; Admin Dose 30 MG; Start 08/02/16 at 09:00 Pantoprazole (Protonix Tab) 40 mg DAILY@06 PO Last administered on 08/14/16 05 :32; Admin Dose 40 MG; Start 08/03/16 at 06:00 Divalproex Sodium (Depakote) 500 mg TID PO Last administered on 08/14/16 08:52 ; Admin Dose 500 MG; Start 08/02/16 at 21:00 Docusate Sodium (Colace) 100 mg DAILY PO Last administered on 08/14/16 08:52; Admin Dose 100 MG; Start 08/03/16 at 09:00 Folic Acid (Folic Acid) 1 mg DAILY PO Last administered on 08/14/16 08:52; Admin Dose 1 MG; Start 08/03/16 at 09:00 Lorazepam (Ativan) 1 mg Q12H PRN PO ANXIETY; Start 08/02/16 at 15:00 Magnesium Hydroxide (Milk Of Mag) 30 ml DAILY PRN PO CONSTIPATION; Start at 15:00 Quetiapine Fumarate (Seroquel) 50 mg TID PO Last administered on 08/14/16 08: 52; Admin Dose 50 MG; Start 08/02/16 at 21:00 Ropinirole HCl (Requip) 1 mg BID PO Last administered on 08/14/16 08:52; Admin Dose 1 MG; Start 08/02/16 at 21:00 Senna (Senokot) 1 tab QHS PO Last administered on 08/13/16 20:17; Admin Dose 1 TAB; Start 08/02/16 at 21:00 Mirtazapine (Remeron) 15 mg QHS PO Last administered on 08/13/16 20:17; Admin Dose 15 MG; Start 08/02/16 at 21:00 Psyllium Hydrophilic Mucilloid (Metamucil (Sugar Free)) 1 pkt BID PO Last administered on 08/14/16 08:52; Admin Dose 1 PKT; Start 08/02/16 at 21:00 Zolpidem Tartrate (Ambien) 5 mg QHS PRN PO INSOMNIA; Start 08/02/16 at 15:00 Acetaminophen (Tylenol Tab) 650 mg Q6H PRN PO PAIN AND OR ELEVATED TEMP Last administered on 08/13/16 20:17; Admin Dose 650 MG; Start 08/02/16 at 21:00 Mupirocin (Bactroban) 1 applic BID TOP Last administered on 08/14/16 08:53; Admin Dose 1 APPLIC; Start 08/03/16 at 21:00 Methylprednisolone Sodium Succinate (Solu-Medrol) 40 mg Q12 IV Last administered on 08/14/16 08:52; Admin Dose 40 MG; Start 08/05/16 at 09:00 Hydralazine HCl (Apresoline) 25 mg Q6H PRN PO ELEVATED BLOOD PRESSURE; Start at 20:30 Amlodipine Besylate (Norvasc) 10 mg DAILY PO Last administered on 08/14/16 08: 53; Admin Dose 10 MG; Start 08/07/16 at 20:30 Trimethoprim/ Sulfamethoxazole (Bactrim (Ds)) 1 tab BID PO Last administered on 08/14/16 08:52; Admin Dose 1 TAB; Start 08/09/16 at 21:00 TERRA DUNCAN Aug 14, 2016 11:04
[2016-08-14 19:20] VITALS: BP 115/58; RESP 18
--- NOTE | 2016-08-14 20:53 | CONS ---
Date/Time of Note Date/Time of Note DATE: 08/14/16 TIME: 20:53 Assessment/Plan Assessment/Plan Chief Complaint/Hosp Course SUBJECTIVE: No acute events, alert, feels good, looks comfortable, no fevers. MICROBIOLOGY: Nares swab and sputum cx came back positive for MRSA. ANTIMICROBIALS: day# 13 Bactrim, s/p Vanco/Cefepime PHYSICAL EXAMINATION: GENERAL: This is a fragile, chronically ill-appearing, elderly man who is awake , in no distress. HEENT: Head atraumatic, normocephalic. Sclerae anicteric. Buccal mucosa dry. NECK: Supple. CHEST: Rise symmetrical. Breath sounds diminished to bases, scattered respiratory wheezes. HEART: S1, S2. ABDOMEN: Soft, bowel sounds present. EXTREMITIES: Without cyanosis or edema. ASSESSMENT: 1. Resolving sepsis with fevers, leukocytosis, and tachycardia on admission. 2. Healthcare-associated pneumonia. 3. Chronic obstructive pulmonary disease exacerbation. 4. History of schizophrenia and GI bleeding. 5. Methicillin-resistant Staphylococcus aureus nares colonization. PLAN: Remains stable, completing abx, continue present care, pending dc. [facility] staff Problems: Consultation Date/Type/Reason Admit Date/Time August 01, 2016 at 22:43 Type of Consultation: ID Exam/Review of Systems Vital Signs Vitals Vital Signs Date Time Temp Pulse Resp B/P Pulse Ox O2 Delivery O2 Flow Rate FiO2 08/14/16 20:29 91 24 94 Nasal Cannula 2.0 08/14/16 19:20 98.0 115/58 Intake and Output 08/13/16 08/13/16 08/14/16 15:00 23:00 07:00 Intake Total 1420 ml 500 ml Output Total 550 ml Balance 1420 ml -50 ml Results Result Diagram: 08/12/16 0529 08/12/16 0529 Medications Medications Current Medications Ondansetron HCl (Zofran Inj) 4 mg Q6H PRN IV NAUSEA AND/OR VOMITING; Start at 23:00 Morphine Sulfate (morphine) 2 mg Q4H PRN IV PAIN LEVEL 7-10; Start 08/01/16 at 23:00 Enoxaparin Sodium (Lovenox) 30 mg DAILY SC Last administered on 08/14/16t 08:56 ; Admin Dose 30 MG; Start 08/02/16 at 09:00 Pantoprazole (Protonix Tab) 40 mg DAILY@06 PO Last administered on 08/14/16 05 :32; Admin Dose 40 MG; Start 08/03/16 at 06:00 Divalproex Sodium (Depakote) 500 mg TID PO Last administered on 08/14/16 14:02 ; Admin Dose 500 MG; Start 08/02/16 at 21:00 Docusate Sodium (Colace) 100 mg DAILY PO Last administered on 08/14/16 08:52; Admin Dose 100 MG; Start 08/03/16 at 09:00 Folic Acid (Folic Acid) 1 mg DAILY PO Last administered on 08/14/16 08:52; Admin Dose 1 MG; Start 08/03/16 at 09:00 Lorazepam (Ativan) 1 mg Q12H PRN PO ANXIETY; Start 08/02/16 at 15:00 Magnesium Hydroxide (Milk Of Mag) 30 ml DAILY PRN PO CONSTIPATION; Start at 15:00 Quetiapine Fumarate (Seroquel) 50 mg TID PO Last administered on 08/14/16 14: 02; Admin Dose 50 MG; Start 08/02/16 at 21:00 Ropinirole HCl (Requip) 1 mg BID PO Last administered on 08/14/16 08:52; Admin Dose 1 MG; Start 08/02/16 at 21:00 Senna (Senokot) 1 tab QHS PO Last administered on 08/13/16 20:17; Admin Dose 1 TAB; Start 08/02/16 at 21:00 Mirtazapine (Remeron) 15 mg QHS PO Last administered on 08/13/16 20:17; Admin Dose 15 MG; Start 08/02/16 at 21:00 Psyllium Hydrophilic Mucilloid (Metamucil (Sugar Free)) 1 pkt BID PO Last administered on 08/14/16 08:52; Admin Dose 1 PKT; Start 08/02/16 at 21:00 Zolpidem Tartrate (Ambien) 5 mg QHS PRN PO INSOMNIA; Start 08/02/16 at 15:00 Acetaminophen (Tylenol Tab) 650 mg Q6H PRN PO PAIN AND OR ELEVATED TEMP Last administered on 08/13/16 20:17; Admin Dose 650 MG; Start 08/02/16 at 21:00 Mupirocin (Bactroban) 1 applic BID TOP Last administered on 08/14/16 08:53; Admin Dose 1 APPLIC; Start 08/03/16 at 21:00 Methylprednisolone Sodium Succinate (Solu-Medrol) 40 mg Q12 IV Last administered on 08/14/16 08:52; Admin Dose 40 MG; Start 08/05/16 at 09:00 Hydralazine HCl (Apresoline) 25 mg Q6H PRN PO ELEVATED BLOOD PRESSURE; Start at 20:30 Amlodipine Besylate (Norvasc) 10 mg DAILY PO Last administered on 08/14/16 08: 53; Admin Dose 10 MG; Start 08/07/16 at 20:30 Trimethoprim/ Sulfamethoxazole (Bactrim (Ds)) 1 tab BID PO Last administered on 08/14/16 08:52; Admin Dose 1 TAB; Start 08/09/16 at 21:00 ARCHIE BORJA NP Aug 14, 2016 20:53
[2016-08-14] MEDS: MIRTAZAPINE 15 MG TAB PO SCH (20:57)
[2016-08-14] MEDS: SENNA TAB PO SCH (20:57)
[2016-08-15] MEDS: ALBUTEROL/IPRATROPIUM (NEB) 3 ML AMP HHN SCH ×4 (02:19→20:00)
[2016-08-15] MEDS: LEVOTHYROXINE 25 MCG TAB PO SCH (06:04)
[2016-08-15] MEDS: PANTOPRAZOLE (EC) 40 MG TAB PO SCH (06:04)
[2016-08-15 07:40] VITALS: BP 122/56; RESP 18
[2016-08-15] MEDS: TRIMETHOPRIM/SULFAMETHOX (DS) TAB PO SCH (08:37)
[2016-08-15] MEDS: PSYLLIUM (SUGAR FREE) PACKET PO SCH ×2 (08:37→21:52)
[2016-08-15] MEDS: ROPINIROLE 1 MG TAB PO SCH ×2 (08:37→21:51)
[2016-08-15] MEDS: DOCUSATE SODIUM 100 MG CAP PO SCH (08:37)
[2016-08-15] MEDS: DIVALPROEX (EC) 500 MG TAB PO SCH ×3 (08:38→21:50)
[2016-08-15] MEDS: AMLODIPINE 10 MG TAB PO SCH (08:38)
[2016-08-15] MEDS: QUETIAPINE 25 MG TAB PO SCH ×3 (08:38→21:51)
[2016-08-15] MEDS: METHYLPREDNISOLONE 40 MG INJ IV SCH ×2 (08:38→21:52)
[2016-08-15] MEDS: FOLIC ACID 1 MG TAB PO SCH (08:38)
[2016-08-15] MEDS: MUPIROCIN 2% 22 GM OINT TOP SCH ×2 (08:39→21:52)
[2016-08-15] MEDS: ENOXAPARIN 30 MG/0.3 ML SYG SC SCH (08:50)
[2016-08-15 08:52] VITALS: BP 129/62; PULSE 78
--- NOTE | 2016-08-15 13:48 | CONS ---
Date/Time of Note Date/Time of Note DATE: 08/15/16 TIME: 13:47 Assessment/Plan Assessment/Plan Chief Complaint/Hosp Course SUBJECTIVE: No acute events, alert, feels good, looks comfortable, no fevers. MICROBIOLOGY: Nares swab and sputum cx came back positive for MRSA. ANTIMICROBIALS: day# 13 Bactrim, s/p Vanco/Cefepime PHYSICAL EXAMINATION: GENERAL: This is a fragile, chronically ill-appearing, elderly man who is awake , in no distress. HEENT: Head atraumatic, normocephalic. Sclerae anicteric. Buccal mucosa dry. NECK: Supple. CHEST: Rise symmetrical. Breath sounds diminished to bases, scattered respiratory wheezes. HEART: S1, S2. ABDOMEN: Soft, bowel sounds present. EXTREMITIES: Without cyanosis or edema. ASSESSMENT: 1. Resolving sepsis with fevers, leukocytosis, and tachycardia on admission. 2. Healthcare-associated pneumonia. 3. Chronic obstructive pulmonary disease exacerbation. 4. History of schizophrenia and GI bleeding. 5. Methicillin-resistant Staphylococcus aureus nares colonization. PLAN: Remains stable, will dc abx and observe, continue present care, pending dc. DW staff Problems: Consultation Date/Type/Reason Admit Date/Time August 01, 2016 at 22:43 Type of Consultation: ID Exam/Review of Systems Vital Signs Vitals Vital Signs Date Time Temp Pulse Resp B/P Pulse Ox O2 Delivery O2 Flow Rate FiO2 08/15/16 13:26 2.0 08/15/16 13:23 69 21 97 Nasal Cannula 08/15/16 08:52 129/62 08/15/16 07:40 97.5 Intake and Output 08/14/16 08/14/16 08/15/16 15:00 23:00 07:00 Intake Total 1240 ml 400 ml Output Total 600 ml 860 ml Balance 640 ml -460 ml Results Result Diagram: 08/12/1629 08/12/16528 Medications Medications Current Medications Ondansetron HCl (Zofran Inj) 4 mg Q6H PRN IV NAUSEA AND/OR VOMITING; Start at 23:00 Morphine Sulfate (morphine) 2 mg Q4H PRN IV PAIN LEVEL 7-10; Start 08/01/16 at 23:00 Enoxaparin Sodium (Lovenox) 30 mg DAILY SC Last administered on 08/15/16 08:50 ; Admin Dose 30 MG; Start 08/02/16 at 09:00 Pantoprazole (Protonix Tab) 40 mg DAILY@06 PO Last administered on 08/15/16 06 :04; Admin Dose 40 MG; Start 08/03/16 at 06:00 Divalproex Sodium (Depakote) 500 mg TID PO Last administered on 08/15/16 12:33 ; Admin Dose 500 MG; Start 08/02/16 at 21:00 Docusate Sodium (Colace) 100 mg DAILY PO Last administered on 08/15/16 08:37; Admin Dose 100 MG; Start 08/03/16 at 09:00 Folic Acid (Folic Acid) 1 mg DAILY PO Last administered on 08/15/16 08:38; Admin Dose 1 MG; Start 08/03/16 at 09:00 Lorazepam (Ativan) 1 mg Q12H PRN PO ANXIETY; Start 08/02/16 at 15:00 Magnesium Hydroxide (Milk Of Mag) 30 ml DAILY PRN PO CONSTIPATION; Start at 15:00 Quetiapine Fumarate (Seroquel) 50 mg TID PO Last administered on 08/15/16 12: 33; Admin Dose 50 MG; Start 08/02/16 at 21:00 Ropinirole HCl (Requip) 1 mg BID PO Last administered on 08/15/16 08:37; Admin Dose 1 MG; Start 08/02/16 at 21:00 Senna (Senokot) 1 tab QHS PO Last administered on 08/14/16 20:57; Admin Dose 1 TAB; Start 08/02/16 at 21:00 Mirtazapine (Remeron) 15 mg QHS PO Last administered on 08/14/16 20:57; Admin Dose 15 MG; Start 08/02/16 at 21:00 Psyllium Hydrophilic Mucilloid (Metamucil (Sugar Free)) 1 pkt BID PO Last administered on 08/15/16 08:37; Admin Dose 1 PKT; Start 08/02/16 at 21:00 Zolpidem Tartrate (Ambien) 5 mg QHS PRN PO INSOMNIA; Start 08/02/16 at 15:00 Acetaminophen (Tylenol Tab) 650 mg Q6H PRN PO PAIN AND OR ELEVATED TEMP Last administered on 08/13/16 20:17; Admin Dose 650 MG; Start 08/02/16 at 21:00 Mupirocin (Bactroban) 1 applic BID TOP Last administered on 08/15/16 08:39; Admin Dose 1 APPLIC; Start 08/03/16 at 21:00 Methylprednisolone Sodium Succinate (Solu-Medrol) 40 mg Q12 IV Last administered on 08/15/16 08:38; Admin Dose 40 MG; Start 08/05/16 at 09:00 Hydralazine HCl (Apresoline) 25 mg Q6H PRN PO ELEVATED BLOOD PRESSURE; Start at 20:30 Amlodipine Besylate (Norvasc) 10 mg DAILY PO Last administered on 08/15/16 08: 38; Admin Dose 10 MG; Start 08/07/16 at 20:30 Trimethoprim/ Sulfamethoxazole (Bactrim (Ds)) 1 tab BID PO Last administered on 08/15/16 08:37; Admin Dose 1 TAB; Start 08/09/16 at 21:00 ARCHIE BORJA NP Aug 15, 2016 13:48
[2016-08-15 20:30] VITALS: BP 116/59; RESP 22
[2016-08-15] MEDS: SENNA TAB PO SCH (21:51)
[2016-08-15] MEDS: MIRTAZAPINE 15 MG TAB PO SCH (21:51)
[2016-08-15] MEDS: ACETAMINOPHEN 325 MG TAB PO PRN (21:52)
[2016-08-16] MEDS: ALBUTEROL/IPRATROPIUM (NEB) 3 ML AMP HHN SCH ×3 (02:14→14:46)
[2016-08-16] MEDS: LEVOTHYROXINE 25 MCG TAB PO SCH (05:49)
[2016-08-16] MEDS: PANTOPRAZOLE (EC) 40 MG TAB PO SCH (05:49)
[2016-08-16 08:00] VITALS: BP 119/63; RESP 18
[2016-08-16] MEDS: ENOXAPARIN 30 MG/0.3 ML SYG SC SCH (09:16)
[2016-08-16] MEDS: QUETIAPINE 25 MG TAB PO SCH ×2 (09:21→13:10)
[2016-08-16] MEDS: AMLODIPINE 10 MG TAB PO SCH (09:21)
[2016-08-16] MEDS: DOCUSATE SODIUM 100 MG CAP PO SCH (09:21)
[2016-08-16] MEDS: ROPINIROLE 1 MG TAB PO SCH (09:21)
[2016-08-16] MEDS: FOLIC ACID 1 MG TAB PO SCH (09:21)
[2016-08-16] MEDS: METHYLPREDNISOLONE 40 MG INJ IV SCH (09:22)
[2016-08-16] MEDS: MUPIROCIN 2% 22 GM OINT TOP SCH (09:22)
[2016-08-16] MEDS: PSYLLIUM (SUGAR FREE) PACKET PO SCH (09:22)
[2016-08-16] MEDS: DIVALPROEX (EC) 500 MG TAB PO SCH ×2 (11:08→13:09)
--- NOTE | 2016-08-16 13:15 | CONS ---
Date/Time of Note Date/Time of Note DATE: 08/16/16 TIME: 13:15 Assessment/Plan Assessment/Plan Chief Complaint/Hosp Course SUBJECTIVE: No acute events, alert, feels good, looks comfortable, no fevers. MICROBIOLOGY: Nares swab and sputum cx came back positive for MRSA. ANTIMICROBIALS: s/p Vanco/Cefepime/Bactrim PHYSICAL EXAMINATION: GENERAL: This is a fragile, chronically ill-appearing, elderly man who is awake , in no distress. HEENT: Head atraumatic, normocephalic. Sclerae anicteric. Buccal mucosa dry. NECK: Supple. CHEST: Rise symmetrical. Breath sounds diminished to bases, scattered respiratory wheezes. HEART: S1, S2. ABDOMEN: Soft, bowel sounds present. EXTREMITIES: Without cyanosis or edema. ASSESSMENT: 1. Resolving sepsis with fevers, leukocytosis, and tachycardia on admission. 2. Healthcare-associated pneumonia. 3. Chronic obstructive pulmonary disease exacerbation. 4. History of schizophrenia and GI bleeding. 5. Methicillin-resistant Staphylococcus aureus nares colonization. PLAN: Remains stable, off abx, pending dc, dc isolation [facility] staff Problems: Consultation Date/Type/Reason Admit Date/Time August 01, 2016 at 22:43 Type of Consultation: ID Exam/Review of Systems Vital Signs Vitals Vital Signs Date Time Temp Pulse Resp B/P Pulse Ox O2 Delivery O2 Flow Rate FiO2 08/16/16 09:09 2.0 08/16/16 09:09 77 18 95 Nasal Cannula 08/16/16 08:00 97.5 119/63 Intake and Output 08/15/16 08/15/16 08/16/16 15:00 23:00 07:00 Intake Total 1500 ml Output Total 100 ml 700 ml 300 ml Balance -100 ml 800 ml -300 ml Results Result Diagram: 08/12/16 0529 08/12/16 0529 Medications Medications Current Medications Ondansetron HCl (Zofran Inj) 4 mg Q6H PRN IV NAUSEA AND/OR VOMITING; Start at 23:00 Morphine Sulfate (morphine) 2 mg Q4H PRN IV PAIN LEVEL 7-10; Start 08/01/16 at 23:00 Enoxaparin Sodium (Lovenox) 30 mg DAILY SC Last administered on 08/16/16t 09:16 ; Admin Dose 30 MG; Start 08/02/16 at 09:00 Pantoprazole (Protonix Tab) 40 mg DAILY@06 PO Last administered on 08/16/16 05 :49; Admin Dose 40 MG; Start 08/03/16 at 06:00 Divalproex Sodium (Depakote) 500 mg TID PO Last administered on 08/16/16 13:09 ; Admin Dose 500 MG; Start 08/02/16 at 21:00 Docusate Sodium (Colace) 100 mg DAILY PO Last administered on 08/16/16 09:21; Admin Dose 100 MG; Start 08/03/16 at 09:00 Folic Acid (Folic Acid) 1 mg DAILY PO Last administered on 08/16/16 09:21; Admin Dose 1 MG; Start 08/03/16 at 09:00 Lorazepam (Ativan) 1 mg Q12H PRN PO ANXIETY; Start 08/02/16 at 15:00 Magnesium Hydroxide (Milk Of Mag) 30 ml DAILY PRN PO CONSTIPATION; Start at 15:00 Quetiapine Fumarate (Seroquel) 50 mg TID PO Last administered on 08/16/16 13: 10; Admin Dose 50 MG; Start 08/02/16 at 21:00 Ropinirole HCl (Requip) 1 mg BID PO Last administered on 08/16/16 09:21; Admin Dose 1 MG; Start 08/02/16 at 21:00 Senna (Senokot) 1 tab QHS PO Last administered on 08/15/16 21:51; Admin Dose 1 TAB; Start 08/02/16 at 21:00 Mirtazapine (Remeron) 15 mg QHS PO Last administered on 08/15/16 21:51; Admin Dose 15 MG; Start 08/02/16 at 21:00 Psyllium Hydrophilic Mucilloid (Metamucil (Sugar Free)) 1 pkt BID PO Last administered on 08/16/16 09:22; Admin Dose 1 PKT; Start 08/02/16 at 21:00 Zolpidem Tartrate (Ambien) 5 mg QHS PRN PO INSOMNIA; Start 08/02/16 at 15:00 Acetaminophen (Tylenol Tab) 650 mg Q6H PRN PO PAIN AND OR ELEVATED TEMP Last administered on 08/15/16 21:52; Admin Dose 650 MG; Start 08/02/16 at 21:00 Mupirocin (Bactroban) 1 applic BID TOP Last administered on 08/16/16 09:22; Admin Dose 1 APPLIC; Start 08/03/16 at 21:00 Methylprednisolone Sodium Succinate (Solu-Medrol) 40 mg Q12 IV Last administered on 08/16/16 09:22; Admin Dose 40 MG; Start 08/05/16 at 09:00 Hydralazine HCl (Apresoline) 25 mg Q6H PRN PO ELEVATED BLOOD PRESSURE; Start at 20:30 Amlodipine Besylate (Norvasc) 10 mg DAILY PO Last administered on 08/16/16 09: 21; Admin Dose 10 MG; Start 08/07/16 at 20:30 ARCHIE BORJA NP Aug 16, 2016 13:15
--- NOTE | 2016-08-16 17:38 | PN ---
DATE: 08/15/2016 SUBJECTIVE: Followup on 75-year-old gentleman who was admitted with severe sepsis secondary to pneu monia, currently treated with IV antibiotics, currently on Bactrim. The patient with also chronic o bstructive pulmonary disease. The patient is comfortable on supplemental oxygen. Denies any chest pain, denies any shortness of breath, remains hemodynamically stable. OBJECTIVE: VITAL SIGNS: Temperature 97.6, pulse 75, blood pressure is 116/59, respiratory rate 22, oxygen satu ration 96% on 2 liters nasal cannula. GENERAL: Well-developed, well-nourished male in no acute distress. CHEST: Diminished, chest clear bilaterally. There are no rhonchi. HEART: Normal pulses. GASTROINTESTINAL: Abdomen is soft. Bowel sounds present. EXTREMITIES: No edema. ASSESSMENT AND PLAN: 1. Community-acquired pneumonia, status post treatment. The patient is currently on Bactrim. The patient's sputum culture with MRSA. Discussed with Infectious Disease if okay to discontinue contac t isolation. 2. Chronic obstructive pulmonary disease, status post exacerbation. Continue breathing treatment p .r.n. for shortness of breath. 3. Hypothyroidism. Continue Synthroid. 4. Gastroesophageal reflux disease. Continue Protonix. 5. Schizophrenia. The patient is currently on Seroquel. 6. Possible Parkinson disease. Continue Requip. Case management for discharge planning. Further recommendations based on clinical course. Plan of care discussed with Dr. Lorenzo. Dictated By: SORAIDA KING DIRECTOR BIOINFORMATICS for EDGARD LORENZO MD SR/TAISHA Conf#: [id number] DID#: [id number]
--- NOTE | 2016-08-16 18:29 | DS ---
DATE OF ADMISSION: 08/01/2016 DATE OF DISCHARGE: 08/16/2016 FINAL DIAGNOSES: 1. Status post severe sepsis secondary to pneumonia. 2. Healthcare-acquired pneumonia with sputum culture positive for methicillin-resistant Staphylococ cus aureus, status post treatment. 3. Chronic obstructive pulmonary disease with exacerbation. 4. Hypothyroidism. 5. Gastroesophageal reflux disease. 6. Schizophrenia. 7. Parkinson's disease. HOSPITAL COURSE: The patient is a 75-year-old male with Parkinson's disease, schizophrenia, insomni a, hypothyroidism with history of long-term tobacco use, and history of COPD. The patient was recup erating at a [facility]pc facility and developed cough and decreased oxygen saturations. The pat ient was brought to [facility] and was septic and was diagnosed with pneumonia and started on broad-spectrum antibiotics. The patient was evaluated by Dr. Aceves in infectious disea se consultation. The patient's sputum was positive for MRSA. The patient was given vancomycin. Th e patient was also given breathing treatments and steroids for COPD exacerbation. The patient's con dition gradually improved. The patient was switched to oral antibiotics, Bactrim, and after complet ion of course of antibiotics, isolation was discontinued. The patient will be discharged to fpc facility [facility]. CONDITION ON DISCHARGE: Hemodynamically stable. ACTIVITY: As patient tolerates. DIET: Regular diet. DISCHARGE MEDICATIONS: 1. Tylenol p.r.n. for fever and pain. 2. DuoNeb q.12h. routine and q.2h. p.r.n. for shortness of breath. 3. Norvasc. 4. Depakote. 5. Colace. 6. Bisacodyl p.r.n. 7. Fleet enema p.r.n. for constipation. 8. Metamucil p.r.n. for constipation. 9. Senna Lax daily at bedtime. 10. Lovenox 30 subcutaneous daily. 11. Folic acid. 12. Hydralazine. 13. Synthroid. 14. Ativan q.12h. p.r.n. for agitation. 15. Temazepam p.r.n. for insomnia. 16. Milk of magnesia. 17. Remeron. 18. Protonix. 19. Seroquel. 20. Requip. Interdisciplinary plan of care was established for this patient. Plan of care was discussed with Dr Joanna Lorenzo. Dictated By: SORAIDA KING SOLE SEAMER for EDGARD LORENZO MD SR/NTS Conf#: [id number] DID#: [id number]
== END 2016-08-16 17:40 | DRG 871 ==
LOC: E/R 20:39 → MS4 22:43 → MS2 08-08 11:25
PROVIDERS: ADMIT Internal Medicine; ATTEND Internal Medicine
PROC: 4A033R1 Measurement of Arterial Saturation, Peripheral, Percutaneous Approach (ICD-10-PCS; principal; 2016-08-04)
DX: A41.9 Sepsis, unspecified organism (principal); J15.212 Pneumonia due to Methicillin resistant Staphylococcus aureus; J44.0 Chronic obstructive pulmonary disease with (acute) lower respiratory infection; G20 Parkinson's disease; J44.1 Chronic obstructive pulmonary disease with (acute) exacerbation; E03.9 Hypothyroidism, unspecified; R65.20 Severe sepsis without septic shock; K21.9 Gastro-esophageal reflux disease without esophagitis; F20.9 Schizophrenia, unspecified; Z87.891 Personal history of nicotine dependence
CPT/HCPCS: 36415; 36600; 71010; 80048; 80053; 80202; 81001; 81003; 82803; 83605; 84484; 85025; 85610; 85730; 87040; 87070; 87081; 87086; 93005; 94640; 94664; 96374; 96375; A4310; J0692; J1650; J2920; J3370; J7030